=== PATIENT | female | born 1935 | race Caucasian/White ===

== ENCOUNTER → 2016-07-10 | Outpatient (CLI) | payer MEDICARE ==
--- NOTE | 2016-07-11 06:41 | MM ---
Reason for exam: follow-up at short interval from prior study. Last mammogram was performed 7 months ago. History: Patient is postmenopausal, has history of bilateral breast cancer at age 77, has history of other cancer at age 76, and is nulliparous. Family history of premenopausal breast cancer in sister at age 43. Malignant left breast needle localization of both breasts, March 09, 2013. Malignant left mammotome panel of the left breast, February 23, 2013. Benign cyst aspiration of the left breast, 1999. Took estrogen for 10 years beginning at age 54. Took progesterone for 10 years beginning at age 54. Taking other hormone for 16 years. Physical Findings: Nurse Summary: 3 x 4cm post surgical changes per patient at 6 o'clock in the left breast (nurse ts). MG 3D Diag Mammo W/Cad LT CC, MLO, and LM view(s) were taken of the left breast. Prior study comparison: December 18, 2015, bilateral MG 3d diag mammo w/cad TIERRA. December 14, 2014, bilateral MG diagnostic mammo w CAD TIERRA. Finding: There is a 20 mm round mass in the middle, central position of the left breast. Increased new heterogeneous calcifications. These results were verbally communicated with the patient and result sheet given to the patient on 07/10/16. ASSESSMENT: Incomplete: need additional imaging evaluation, BI-RAD 0 RECOMMENDATION: Ultrasound of the left breast.
--- NOTE | 2016-07-11 06:43 | USB ---
Reason for exam: additional evaluation requested from abnormal screening. History: Patient is postmenopausal, has history of bilateral breast cancer at age 77, has history of other cancer at age 76, and is nulliparous. Family history of premenopausal breast cancer in sister at age 43. Malignant left breast needle localization of both breasts, March 09, 2013. Malignant left mammotome panel of the left breast, February 23, 2013. Benign cyst aspiration of the left breast, 1999. Took estrogen for 10 years beginning at age 54. Took progesterone for 10 years beginning at age 54. Taking other hormone for 16 years. US Breast Limited LT Left breast ultrasound demonstrates a 3.2 x 2.9 x 2.1cm oval, mixed, vascular lesion at 3 o'clock, a 0.4 x 0.3 x 0.2cm calcification at 3 o'clock and a 1.1 x 1.1 x 0.5cm irregular, solid, hypoechoic, vascular lesion at the axilla, questionable abnormal lymph node. These results were verbally communicated with the patient and result sheet given to the patient on 07/11/16. ASSESSMENT: Suspicious, BI-RAD 4 RECOMMENDATION: Ultrasound core biopsy of the left breast. (2 sites) Called Dr. Gasca with mammographic findings and has scheduled an appointment for the patient for 07/19/16 at 11:[address] Bernal. PRELIMINARY REPORT CALLED AND FAXED TO DR. BERNAL ON 07/11/16 AT 700/TP.
== END | disposition home or self-care (01) ==
LOC: RADMAMWWP 14:08
PROVIDERS: ATTEND Radiology Diagnostic Radiology
DX: R92.8 Other abnormal and inconclusive findings on diagnostic imaging of breast (principal); Z85.3 Personal history of malignant neoplasm of breast
CPT/HCPCS: 76642; G0206; G0279

== ENCOUNTER → 2016-08-12 | Day surgery (SDC) | payer MEDICARE ==
[~2016-08-12] MED LIST: BACITRACIN OINT 1 EACH PACKET TOPICAL ONE; LIDOCAINE 1% INJ 10MG/ML (20 ML MDV) ONE; LIDOCAINE 1%-EPI 1:100,000 20 ML VIAL ONE; SODIUM BICARB 4% 5 ML VIAL (0.48 MEQ/ML) ONE
--- NOTE | 2016-08-12 14:08 | USB ---
EXAMINATION TYPE: US breast aspiration single LT DATE OF EXAM: 08/12/2016 1:32 PM COMPARISON: Previous study dated 07/10/2016. CLINICAL HISTORY: N63,LUMP LEFT BREAST. Using ultrasound guidance and 1% buffered Xylocaine without epinephrine for local anesthesia an 18-gauge needle was introduced 3.4 cm complex lesion in the 3:00 position of the left breast. Cloudy fluid was aspirated. The lesion disappeared. Estimated blood loss was less than 1 cc. Pathology is pending. A clip was deposited. IMPRESSION: SUCCESSFUL ASPIRATION OF THE LARGE LESION IN THE 3:00 POSITION OF THE LEFT BREAST. Pathology Results: Benign BREAST, LEFT, SITE A 3:00, ASPIRATE: DEGENERATED CELLULAR MATERIAL, MACROPHAGES AND INFLAMMATORY CELLS CONSISTENT WITH CYST CONTENTS. BREAST, LEFT AXILLARY TAIL SITE B, CORE BIOPSY: SCAR/FIBROSIS WITH FAT NECROSIS , CHRONIC INFLAMMATION, PROMINENT HISTIOCYTES AND RARE CALCIFICATIONS. FEATURES SUGGESTIVE OF PREVIOUS PROCEDURAL AND/OR TREATMENT RELATED CHANGES. NO MALIGNANCY IDENTIFIED. SEE NOTE. Recommendation Follow up mammogram and ultrasound of the left breast in 6 months. MTDD
--- NOTE | 2016-08-12 14:11 | USB ---
EXAMINATION TYPE: US breast needle core LT DATE OF EXAM: 08/12/2016 1:32 PM COMPARISON: Previous study dated 07/10/2016. CLINICAL HISTORY: N63 Lump Mass Left Breast. Using standard sterile technique and 1% Xylocaine with and without epinephrine for local anesthesia an 18-gauge Bard needle 5 cores were obtained through a 1.4 cm lesion in the axillary tail of the left breast. Estimated blood loss was less than 3 cc. Pathology is pending. A clip was deposited. IMPRESSION: SUCCESSFUL ULTRASOUND-GUIDED BIOPSY OF THE LEFT AXILLARY TAIL. Pathology Results: Benign BREAST, LEFT, SITE A 3:00, ASPIRATE: DEGENERATED CELLULAR MATERIAL, MACROPHAGES AND INFLAMMATORY CELLS CONSISTENT WITH CYST CONTENTS. BREAST, LEFT AXILLARY TAIL SITE B, CORE BIOPSY: SCAR/FIBROSIS WITH FAT NECROSIS , CHRONIC INFLAMMATION, PROMINENT HISTIOCYTES AND RARE CALCIFICATIONS. FEATURES SUGGESTIVE OF PREVIOUS PROCEDURAL AND/OR TREATMENT RELATED CHANGES. NO MALIGNANCY IDENTIFIED. SEE NOTE. Recommendation Follow up mammogram and ultrasound of the left breast in 6 months. JOAN
== END ==
LOC: RADUSWWP 11:42
PROVIDERS: ATTEND Surgery
DX: N60.32 Fibrosclerosis of left breast (principal); N64.1 Fat necrosis of breast; N63 Unspecified lump in breast
CPT/HCPCS: 88305; 88173; 88342; 76942; 19000; 19083; A4648; J2001

== ENCOUNTER → 2016-12-18 | Outpatient (CLI) | payer MEDICARE ==
--- NOTE | 2016-12-18 16:03 | USB ---
EXAMINATION TYPE: US breast limited LT DATE OF EXAM: 12/18/2016 COMPARISON: Ultrasound of the left breast dated 07/10/2016 and ultrasound-guided biopsy dated 7. CLINICAL HISTORY: N63 PALPABLE MASS. Near the 2:00 position within the left breast there is a 0.8 x 0.4 x 0.7 cm hypoechoic mass containin g a biopsy marker corresponding to the palpable abnormality and previously biopsied "scar/fibrosis wi th fat necrosis, chronic inflammation, prominent histiocytes and rare calcifications. Features sugges tive of previous procedural and/or treatment related changes". No suspicious sonographic abnormality is seen. IMPRESSION: Benign finding. Palpable abnormality corresponding to the previously biopsied site of fa t necrosis. Clinical management is recommended as is annual screening mammography.
--- NOTE | 2016-12-19 13:10 | MM ---
Reason for exam: additional evaluation requested from prior study. Last mammogram was performed 5 months ago. History: Patient is postmenopausal, has history of bilateral breast cancer at age 77, has history of other cancer at age 76, and is nulliparous. Family history of premenopausal breast cancer in sister at age 43. Benign US breast aspiration single LT of the left breast, August 12, 2016. Benign US breast needle core LT of the left breast, August 12, 2016. Malignant left breast needle localization of both breasts, March 09, 2013. Malignant left mammotome panel of the left breast, February 23, 2013. Benign cyst aspiration of the left breast, 1999. Took estrogen for 10 years beginning at age 54. Took progesterone for 10 years beginning at age 54. Taking other hormone for 16 years. Physical Findings: Nurse Summary: A 0.5cm nodule in the left breast at 2 o'clock (nurse dw). MG 3D Diag Mammo W/Cad TIERRA Spot compression MLO view(s) were taken of the left breast. Prior study comparison: July 10, 2016, left breast MG 3d diag mammo w/cad LT. There are scattered fibroglandular densities. Left breast post therapy change. These results were verbally communicated with the patient and result sheet given to the patient on 12/18/16. ASSESSMENT: Incomplete: need additional imaging evaluation, BI-RAD 0 RECOMMENDATION: Ultrasound of the left breast. (Palpable).
== END | disposition home or self-care (01) ==
LOC: RADMAMWWP 14:18
PROVIDERS: ATTEND Radiology Diagnostic Radiology
DX: N63 Unspecified lump in breast (principal); R92.2 Inconclusive mammogram
CPT/HCPCS: 76642; G0204; G0279

== ENCOUNTER 2017-08-26 13:03 | Day surgery (SDC) | payer MEDICARE ==
[2017-08-18 10:18] VITALS: BMI 31.2
[~2017-08-26 13:03] MED LIST changes: -BACITRACIN OINT 1 EACH PACKET TOPICAL ONE; +LACTATED RINGERS 1,000 ML IV SCH; -LIDOCAINE 1% INJ 10MG/ML (20 ML MDV) ONE; -LIDOCAINE 1%-EPI 1:100,000 20 ML VIAL ONE; +MORPHINE SULFATE 4MG/4ML SYRG IV PRN; +ONDANSETRON 4 MG/2 ML VIAL IVP ONE; +Pre Op ABX Message 1 EACH MISC MISCELLANE ONE; -SODIUM BICARB 4% 5 ML VIAL (0.48 MEQ/ML) ONE
[2017-08-26] MEDS ORDERED: LIDOCAINE 1% 20 ML VIAL (10MG/ML) FOR IV START INTRADERMA ONE (13:07)
[2017-08-26] MEDS ORDERED: LACTATED RINGERS 1,000 ML IV ONE (13:07)
[2017-08-26] MEDS ORDERED: HEPARIN SODIUM,PORCINE 5,000 UNIT/ML 1 ML VIAL SQ ONE ×2 (13:31→13:52)
[2017-08-26] MEDS ORDERED: fentaNYL (PF) 50 MCG/ML 2 ML AMP ONE (13:56)
[2017-08-26] MEDS ORDERED: SUCCINYLCHOLINE CHLORIDE 100 MG/5 ML SYR IV ONE (13:56)
[2017-08-26] MEDS ORDERED: PROPOFOL 10 MG/ML 20 ML VIAL IV ONE (13:56)
[2017-08-26] MEDS ORDERED: LIDOCAINE 1% INJ 10MG/ML (20 ML MDV) ONE (13:56)
[2017-08-26] MEDS ORDERED: GLYCOPYRROLATE 0.2 MG/ML 2 ML VIAL ONE (13:56)
[2017-08-26] MEDS ORDERED: BACITRACIN 500 UNIT/GM OINT 28.4 GM TUBE TOPICAL ONE (14:52)
--- NOTE | 2017-08-26 14:55 | P.OP ---
Date of Procedure: 08/26/17 Preoperative Diagnosis: skin lesion times 2: right cheek, right nose, lipoma right back Postoperative Diagnosis: same Procedure(s) Performed: Excision skin lesions right nose, right cheek, recurrent lipoma right back Anesthesia: SHANTELLE Surgeon: Krystyna Ellis Estimated Blood Loss (ml): 5 IV fluids (ml): 400 Pathology: other (skin lesions, back lipoma) Condition: stable Disposition: PACU Indications for Procedure: Changing skin lesions right face, enlarging soft tissue mass right back Operative Findings: skin lesion times 2 right face, soft tissue mass right back Description of Procedure: The patient is an 81-year-old white female who presented to the office in the skin Was performed. The patient was noted to have skin lesions of concern on the right nose in the right cheek. Additionally she had a recurrent lipoma on her right back. Patient was taken to the operating room and following induction of anesthesia the right nose and cheek were prepped and draped in a sterile fashion. excision of the lesion on the nose and the cheek were performed. The lesion on the nose was approximately 8 mm insert the skin and subcutaneous tissue. Hemostasis was attained using the electric device. The skin was closed using a 5-0 nylon. Following this the right cheek was approached. The lesion was approximately 2 cm and saw eyes. Excision was through the skin and into subcutaneous tissues. Deep sutures were placed with a 5-0 Vicryl. The skin was closed with 5 Nylon. The patient tolerated this portion of the procedure in stable condition. The area of the back was approached. The area was prepped and drapped in stable condition. An incision was made over the palpable abnormality in the right back. This was carried through skin and subcutaneous tissue to the deep subcutaneous tissues. Lipoma was approximately 7 cm this was identified and removed. It extended onto the muscle . Following wide excision after we were assured that hemostasis was attained the deep tissues were closed using a 3-0 Vicryl suture. The skin was closed with a 4-0 nylon running suture. Patient tolerated procedure in stable condition. All instrument and sponge counts were correct at the end of the case.
[2017-08-26 15:07] VITALS: TEMP 97
[2017-08-26 15:18] VITALS: RESP 16
--- NOTE | 2017-08-26 15:46 | P.DS ---
Providers Attending physician: Krystyna Ellis Primary care physician: Alex Alberto Plan - Discharge Summary New Discharge Prescriptions: No Action Vitamin E 1,000 mg PO DAILY Multivitamins, Thera [Multivitamin] 1 tab PO DAILY Metoprolol Tartrate [Lopressor] 50 mg PO HS Levothyroxine Sodium [Synthroid] 25 mcg PO DAILY Lansoprazole 30 mg PO BID Cod Liver Oil 1 tab PO DAILY Cholecalciferol [Vitamin D3] 2,000 unit PO DAILY Anastrozole [Anastrozole] 1 mg PO DAILY Sertraline [Zoloft] 50 mg PO HS Ranitidine HCl [Zantac] 150 mg PO DAILY LORazepam [Ativan] 0.5 mg PO TID rOPINIRole HCL [Requip] 0.5 mg PO HS Lisinopril [Zestril] 20 mg PO HS Atorvastatin [Lipitor] 20 mg PO HS Magnesium 200 mg PO DAILY Calcium Carbonate/Vitamin D3 [Calcium 600-Vit D3 200 Tablet] 2 each PO DAILY Discharge Medication List Anastrozole [Anastrozole] 1 mg PO DAILY 01/11/15 [History] Cholecalciferol [Vitamin D3] 2,000 unit PO DAILY 01/11/15 [History] Cod Liver Oil 1 tab PO DAILY 01/11/15 [History] Lansoprazole 30 mg PO BID 01/11/15 [History] Levothyroxine Sodium [Synthroid] 25 mcg PO DAILY 01/11/15 [History] Metoprolol Tartrate [Lopressor] 50 mg PO HS 01/11/15 [History] Multivitamins, Thera [Multivitamin] 1 tab PO DAILY 01/11/15 [History] Vitamin E 1,000 mg PO DAILY 01/11/15 [History] Atorvastatin [Lipitor] 20 mg PO HS 08/18/17 [History] Calcium Carbonate/Vitamin D3 [Calcium 600-Vit D3 200 Tablet] 2 each PO DAILY 07/06 [History] LORazepam [Ativan] 0.5 mg PO TID 08/18/17 [History] Lisinopril [Zestril] 20 mg PO HS 08/18/17 [History] Magnesium 200 mg PO DAILY 08/18/17 [History] Ranitidine HCl [Zantac] 150 mg PO DAILY 08/18/17 [History] Sertraline [Zoloft] 50 mg PO HS 08/18/17 [History] rOPINIRole HCL [Requip] 0.5 mg PO HS 08/18/17 [History] Follow up Appointment(s)/Referral(s): Krystyna Ellis MD [STAFF PHYSICIAN] - 1 Week Patient Instructions/Handouts: *Surgery [facility] - (Anesthesia) Discharge Instructions Outpatient Surgery Activity/Diet/Wound Care/Special Instructions: Patient may shower after [address] Discharge Disposition: HOME SELF-CARE
[2017-08-26 16:25] VITALS: BP 159/84; PULSE 68
--- NOTE | 2017-09-01 11:50 | CDI ---
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 Please respond to the clarification below the line at the bottom and electronically sign. The [facility] Coding staff will review the response and follow-up if needed. Please note: Queries are made part of the Legal Health Record. If you have any questions, please contact the Consulting Solution Director. Dear Dr. Anne Ellis What is the size of the cheek lesion repair/closure? Thank you for your kind consideration. Lesion size about 8 mm by 4 mm. Size of excision about 1.3 by 1.1 cm. MTDD
--- NOTE | 2017-09-03 11:10 | P.PN ---
Progress Note - Text This is in response to the physician query of 09/01/17 on the cheek lesion removed on 08/26/17. The size of excision was 1.3 x 1.1 cm. The size of the original lesion was approximately 0.8 x 0.4 cm in size. The excision was through the skin and subcutaneous tissue.
== END 2017-08-26 16:40 | disposition home or self-care (01) ==
LOC: OR 13:03
PROVIDERS: ATTEND Surgery
DX: C44.329 Squamous cell carcinoma of skin of other parts of face (principal); D04.39 Carcinoma in situ of skin of other parts of face; L57.0 Actinic keratosis; L57.8 Other skin changes due to chronic exposure to nonionizing radiation; D17.1 Benign lipomatous neoplasm of skin and subcutaneous tissue of trunk; R00.1 Bradycardia, unspecified; I10 Essential (primary) hypertension; F41.1 Generalized anxiety disorder; F32.9 Major depressive disorder, single episode, unspecified; M19.90 Unspecified osteoarthritis, unspecified site; E03.9 Hypothyroidism, unspecified; E78.00 Pure hypercholesterolemia, unspecified; G25.81 Restless legs syndrome; K21.9 Gastro-esophageal reflux disease without esophagitis; K44.9 Diaphragmatic hernia without obstruction or gangrene; K90.0 Celiac disease; E66.9 Obesity, unspecified; Z68.31 Body mass index [BMI] 31.0-31.9, adult; Z85.51 Personal history of malignant neoplasm of bladder; Z85.3 Personal history of malignant neoplasm of breast; Z80.3 Family history of malignant neoplasm of breast; Z80.0 Family history of malignant neoplasm of digestive organs; Z80.8 Family history of malignant neoplasm of other organs or systems; Z79.890 Hormone replacement therapy; Z79.899 Other long term (current) drug therapy; Z88.5 Allergy status to narcotic agent; Z88.0 Allergy status to penicillin; Z88.8 Allergy status to other drugs, medicaments and biological substances; Z88.2 Allergy status to sulfonamides; Z91.030 Bee allergy status; Z91.018 Allergy to other foods
CPT/HCPCS: 11641; 11642; 12051; 21933; 93005; 88304; 88305; J1644; J2405; J2001; J3010; J0330; J2704

== ENCOUNTER → 2017-12-22 | Outpatient (CLI) | payer MEDICARE ==
--- NOTE | 2017-12-23 08:36 | MM ---
Reason for exam: additional evaluation requested from prior study. Last mammogram was performed 1 year ago. History: Patient is postmenopausal, has history of bilateral breast cancer at age 77, has history of other cancer at age 76, and is nulliparous. Family history of premenopausal breast cancer in sister at age 43. Benign US breast aspiration single LT of the left breast, August 12, 2016. Benign US breast needle core LT of the left breast, August 12, 2016. Malignant left breast needle localization of both breasts, March 09, 2013. Malignant left mammotome panel of the left breast, February 23, 2013. Benign cyst aspiration of the left breast, 1999. Took estrogen for 10 years beginning at age 54. Took progesterone for 10 years beginning at age 54. Taking other hormone for 16 years. Physical Findings: Nurse Summary: 1cm nodule in the left breast at 11 o'clock (nurse mj). MG 3D Diag Mammo W/Cad TIERRA Bilateral CC and MLO view(s) were taken. XCCL view(s) were taken of the right breast. Prior study comparison: December 18, 2016, bilateral MG 3d diag mammo w/cad TIERRA. July 10, 2016, left breast MG 3d diag mammo w/cad LT. December 18, 2015, bilateral MG 3d diag mammo w/cad TIERRA. December 14, 2014, bilateral MG diagnostic mammo w CAD TIERRA. There are scattered fibroglandular densities. Previous mammotome biopsy in the left axilla. Progressive dystrophic calcifications at the patient's lumpectomy site. Upper inner quadrant palpable marker with underlying focal asymmetry with course calcifications. The asymmetry is increased through. The calcifications were there previously. These results were verbally communicated with the patient and result sheet given to the patient on 12/22/17. ASSESSMENT: Incomplete: need additional imaging evaluation, BI-RAD 0 RECOMMENDATION: Ultrasound of the left breast. (superior half to assess palpable and axillary biopsy site)
--- NOTE | 2017-12-23 08:39 | USB ---
Reason for exam: additional evaluation requested from abnormal screening. History: Patient is postmenopausal, has history of bilateral breast cancer at age 77, has history of other cancer at age 76, and is nulliparous. Family history of premenopausal breast cancer in sister at age 43. Benign US breast aspiration single LT of the left breast, August 12, 2016. Benign US breast needle core LT of the left breast, August 12, 2016. Malignant left breast needle localization of both breasts, March 09, 2013. Malignant left mammotome panel of the left breast, February 23, 2013. Benign cyst aspiration of the left breast, 1999. Took estrogen for 10 years beginning at age 54. Took progesterone for 10 years beginning at age 54. Taking other hormone for 16 years. US Breast Limited LT Left limited breast ultrasound including focal area of concern, retroareolar and axilla demonstrates a 1.1 x 0.8 x 1.1cm hypoechoic, vascular lesion at 11 o'clock for which a biopsy is recommended, may be similar process as the biopsied 2 o'clock site and a 1.4 x 0.5 x 1.4cm hypoechoic, vascular lesion at 2 o'clock, versus 8 x 4 x 7mm post biopsy. These results were verbally communicated with the patient and result sheet given to the patient on 12/22/17. ASSESSMENT: Suspicious, BI-RAD 4 RECOMMENDATION: Ultrasound core biopsy of the left breast. (11 o'clock) Called Dr. Gasca with mammographic findings and has scheduled an appointment for the patient for 01/08/18 at 11:[address] Bernal. PRELIMINARY REPORT CALLED AND FAXED TO DR. BERNAL ON 12/23/17.
== END | disposition home or self-care (01) ==
LOC: RADMAMWWP 14:31
PROVIDERS: ATTEND Radiology Diagnostic Radiology
DX: Z08 Encounter for follow-up examination after completed treatment for malignant neoplasm (principal); Z85.3 Personal history of malignant neoplasm of breast
CPT/HCPCS: 77066; 76642; G0279; 77062

== ENCOUNTER → 2018-01-08 | Outpatient (CLI) | payer MEDICARE ==
[2018-01-08 12:15] VITALS: BP 112/60; PULSE 55; RESP 14; TEMP 98.1; BMI 33.2
--- NOTE | 2018-01-08 12:27 | P.GSHP ---
History of Present Illness H&P Date: 01/08/18 Patient is status post left breast lumpectomy and radiation of the left breast. She had a core biopsy of the left breast done 08-12-2016 which was benign. She at this time is complaining of increased nodularity in her left breast. The lump has been present for several months. Patient had a bilateral mammogram 12/22/17. This revealed fibroglandular densities. Previous mammotome biopsy in the left axilla. Progressive dystrophic calcifications at patient's lumpectomy site. Upper inner quadrant palpable marker with underlying focal asymmetry with coarse calcifications. The asymmetry is increased. The calcifications were there previously. An ultrasound was performed of the left breast with attention to the superior half to assess the palpable area. The area area on ultrasound revealed a 1.1 hypoechoic vascular lesion at 11:00 for which biopsy was recommended. Several other areas were noted that biopsy of these areas was not recommended. The patient has no nipple discharge or changes. The patient had no chemotherapy and no hormonal therapy. Patient has had bladder, skin, and breast cancer. Family history: 1. Sister:breast cancer 2. Father: cancer uncertain of the type 3. Brother multiple myeloma 4. Nice: breast cancer bilateral, reconstruction not worked for her 5. Nephew: larynx cancer at 50, Hormonal history: Menarche: 14 Pregnancies: None Menopause: 60 Hormones: Premarin and Provera approximately 10 years possibly longer control pills:none Past surgical history: 1. Bladder cancer 2. breast cancer,lumpectomy 3. Biopsy of small intestine to diagnose celiac disease Past medical history: 1. Hypertension 2. Depression 3. High cholesterol 4. Reflux 5. obesity Social history: Smoking: Negative Alcohol: Occasional Drugs: Negative Review of systems: HEENT: Negative Lungs: Negative Heart: Hypertension, palpitations at times GI: Reflux, celiac disease :bladder cancer Musculoskeletal: Arthritis Neurologic: Negative ALLERGIES: Seasonal Bleeding abnormalities: Negative - Constitutional Constitutional: Denies chills, Denies fever - EENT Eyes: denies blurred vision, denies pain Ears: deny: decreased hearing, tinnitus - Breasts Breasts: bilateral: as per HPI - Cardiovascular Cardiovascular: Reports high blood pressure - Respiratory Respiratory: Reports as per HPI - Gastrointestinal Comment: celiac Gastrointestinal: Reports as per HPI - Genitourinary (Female) Comment: bladder cancer Genitourinary: Reports as per HPI - Menstruation Menstruation: Reports postmenopausal - Musculoskeletal 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 - Integumentary Integumentary: Denies pruritus, Denies rash - Neurological Comment: Peripheral sensory polyneuritis - Psychiatric Psychiatric: Reports anxiety, Denies depression - Endocrine Endocrine: Reports weight change, Denies fatigue - Hematologic/Lymphatic Comment: none - Allergic/Immunologic Allergic/Immunologic: Reports seasonal allergies Past Medical History Past Medical History: Cancer, GERD/Reflux, Hyperlipidemia, Hypertension, Thyroid Disorder Additional Past Medical History / Comment(s): HX BREAST CA, BLADDER CA, LEFT LEG BASAL CELL, CELIAC DX, restless leg syndrome History of Any Multi-Drug Resistant Organisms: None Reported Past Surgical History: Adenoidectomy, Bladder Surgery, Breast Surgery, Tonsillectomy, Tubal Ligation Additional Past Surgical History / Comment(s): COLONOSCOPIES, BENIGN LUMP REMOVED FROM BACK, LEFT BREAST LUMPECTOMY, 2 SX FOR BLADDER CA, LEFT LEG BASAL CELL CA REMOVED, blepharoplasty Past Anesthesia/Blood Transfusion Reactions: Postoperative Nausea & Vomiting ( PONV) Smoking Status: Never smoker - Past Family History Father Family Medical History: Cancer Brother(s) Family Medical History: Cancer Sister(s) Family Medical History: Cancer Additional Family Medical History / Comment(s): BREAST Medications and Allergies Home Medications Medication Instructions Recorded Confirmed Type Anastrozole 1 mg PO DAILY 01/11/15 08/18/17 History Cholecalciferol [Vitamin D3] 2,000 unit PO DAILY 01/11/15 08/18/17 History Cod Liver Oil 1 tab PO DAILY 01/11/15 08/18/17 History Lansoprazole 30 mg PO BID 01/11/15 08/18/17 History Levothyroxine Sodium [Synthroid] 25 mcg PO DAILY 01/11/15 08/18/17 History Metoprolol Tartrate [Lopressor] 50 mg PO HS 01/11/15 08/18/17 History Multivitamins, Thera [Multivitamin] 1 tab PO DAILY 01/11/15 08/18/17 History Vitamin E 1,000 mg PO DAILY 01/11/15 08/18/17 History Atorvastatin [Lipitor] 20 mg PO HS 08/18/17 08/18/17 History Calcium Carbonate/Vitamin D3 2 each PO DAILY 08/18/17 08/18/17 History [Calcium 600-Vit D3 200 Tablet] LORazepam [Ativan] 0.5 mg PO TID 08/18/17 08/18/17 History Lisinopril [Zestril] 20 mg PO HS 08/18/17 08/18/17 History Magnesium 200 mg PO DAILY 08/18/17 08/18/17 History Ranitidine HCl [Zantac] 150 mg PO DAILY 08/18/17 08/18/17 History Sertraline [Zoloft] 50 mg PO HS 08/18/17 08/18/17 History rOPINIRole HCL [Requip] 0.5 mg PO HS 08/18/17 08/18/17 History Allergies Allergy/AdvReac Type Severity Reaction Status Date / Time bee pollen Allergy Rash/Hives Verified 01/08/18 12:11 gluten Allergy Nausea & Verified 01/08/18 12:11 Vomiting & Diarrhea Penicillins Allergy Rash/Hives Verified 01/08/18 12:11 Sulfa (Sulfonamide Allergy Rash/Hives Verified 01/08/18 12:11 Antibiotics) Surgical - Exam - General obese - Eyes normal ocular movement, no icteric - ENT no hearing loss, no congestion - Neck no masses, trachea midline - Respiratory normal respiratory effort, clear to auscultation - Cardiovascular Rhythm: regular Heart Sounds: normal: S1, S2 - Abdomen Abdomen: soft, non tender, no guarding, no rigid, no rebound - Neurologic no disoriented, no combative - Musculoskeletal normal gait, normal posture - Psychiatric oriented to time, oriented to person, oriented to place, speech is normal, memory intact Breast examination: Right breast: Multiple positional exam no dominant masses or nodules of concern Right axilla: No adenopathy of concern Left breast: Changes related to radiation and surgery, at the 11 o'clock position remote from the area of the lumpectomy is an area of increased nodularity Left axilla: No adenopathy of concern Assessment and Plan Assessment: Impression: 1. Radiographic abnormality a site of palpable abnormality 11:00 left breast 2. Prior history of left breast cancer 3. GERD/reflux 4. High cholesterol 5. Hypertension 6. Anxiety/depression 7. Prior history of bladder cancer 8. Prior history of skin cancer Plan: 1. Ultrasound core biopsy of area of concern left breast 2. Medical management of medical problems 3. Follow-up Dr. Eduardo 1 week after ultrasound core biopsy Risks and benefits of the procedure were discussed with the patient. She wishes to proceed. CC: DR. Kim Alberto
== END ==
LOC: WWCWWP 11:26
PROVIDERS: ATTEND Surgery
DX: Z53.9 Procedure and treatment not carried out, unspecified reason (principal)

== ENCOUNTER → 2018-01-14 | Day surgery (SDC) | payer MEDICARE ==
[2018-01-14 13:37] VITALS: BP 113/50; PULSE 57; RESP 18; TEMP 97.9; BMI 28.3
--- NOTE | 2018-01-14 15:03 | USB ---
EXAMINATION TYPE: US discontinued breast bx LT DATE OF EXAM: 01/14/2018 COMPARISON: 12/22/2017 HISTORY: History of cancer, abnormal ultrasound suspicious findings TECHNIQUE: Real-time linear array sonography FINDINGS: In the upper outer quadrant of the left breast is a hypoechoic area with posterior shadowin g. This contains a large caliber vascular structure. In consultation with the referring surgeon, the danger for significant hemorrhaging following biopsy was assessed. This patient would likely benefit consideration for open biopsy with wire localization. IMPRESSION: 1. Procedure terminated prior to skin incision. 2. Lesion remains suspicious, BI-RADS 4. Recommendations: 1. Patient will be referred for surgical consultation. Appointment was made for 01/15/2018 for the pat ient.
== END ==
LOC: RADUSWWP 13:06
PROVIDERS: ATTEND Surgery
DX: N64.89 Other specified disorders of breast (principal); Z85.3 Personal history of malignant neoplasm of breast; Z53.09 Procedure and treatment not carried out because of other contraindication

== ENCOUNTER → 2018-01-15 | Outpatient (CLI) | payer MEDICARE ==
[2018-01-15 09:03] VITALS: BP 97/64; PULSE 53; BMI 33.2
--- NOTE | 2018-01-15 09:08 | P.PN ---
Subjective Progress Note Date: 01/15/18 The patient is a 82-year-old white female status post left breast lumpectomy and radiation of the left breast. She had a core biopsy of the left breast on 08/12/2016 which was benign. She presented on 01/08/2018 with a history of a mammogram performed on 868T. This revealed fibroglandular densities. The patient had progressive dystrophic calcifications at her lumpectomy site. The upper inner quadrant there was focal asymmetry with coarse calcifications. The left breast underwent an ultrasound which revealed a 1.1 cm hypoechoic vascular lesion at 11:00 for which biopsy was recommended. An attempt at biopsy of this lesion was made by radiology who noted that it was very vascular and felt it would be best to have this done with needle localization and excision in the operating room. The patient has no nipple discharge or changes. The patient had no chemotherapy and no hormonal therapy. The patient has had bladder, skin , and breast cancer. Family history: 1. Sr.: Breast cancer 2. Father colon cancer uncertain of the type 3. Brother: Multiple myeloma 4. Nice: Breast cancer bilateral 5. Nephew: Laryngeal cancer Hormonal history: Menarche: 14 Pregnancies: None Menopause: 60 Hormones: Premarin and Provera approximately 10 years control pills: Negative Past surgical history: 1. Bladder cancer 2. Breast cancer lumpectomy left breast 3. Biopsy of small intestine to diagnose celiac disease The past medical history: 1. Hypertension 2. Depression 3. High cholesterol 4. Reflux 5. Obesity Social history: Smoking: Negative Alcohol: Occasional Drugs: Negative Review of systems: HEENT: Negative Heart: Hypertension Lungs: Negative GI: Celiac disease : Bladder cancer Integument: Denies pruritus denies rash Neurologic: Peripheral sensory polyneuritis Psychiatric: Depression Objective - Constitutional Constitutional Comment(s): Breast examination: Right breast: Multi-positional exam no dominant masses or nodules of concern Right axilla: No adenopathy of concern Left breast: Changes related to radiation and surgery at the 11 o'clock position remote from the ears lumpectomy is an area of increased nodularity Left axilla: No adenopathy of concern General appearance: Present: obese - EENT Eyes: Present: PERRLA Ears: bilateral: normal - Neck Neck: Present: normal ROM - Respiratory Respiratory: bilateral: CTA - Cardiovascular Rhythm: regular Heart sounds: normal: S1, S2 - Gastrointestinal General gastrointestinal: Present: normal bowel sounds, soft - Musculoskeletal Musculoskeletal: Present: gait normal - Psychiatric Psychiatric: Present: A&O x's 3, appropriate affect, intact judgment & insight Assessment and Plan Plan: Impression/plan: 1. Radiographic abnormality of site of palpable abnormality left breast, vascular lesion radiology recommends needle local excisional biopsy 2. Prior history of left breast cancer 3. GERD/reflux 4. High cholesterol 5. Hypertension 6. Anxiety/depression 7. Prior history of bladder cancer History of skin cancer Plan: 1. Failed ultrasound attempted core biopsy of left breast lesion therefore needle localization and excisional biopsy 2. Medical management of medical problems 3. Will obtain medical clearance with Dr. Kim Alberto prior to surgical excision Risks and benefits of needle localization excisional biopsy were discussed in detail with the patient. These include bleeding infection possible reaction to the anesthetic. The patient understands and wishes to proceed. Cc: Dr. Alberto
== END | disposition home or self-care (01) ==
LOC: WWCWWP 08:50
PROVIDERS: ATTEND Surgery
DX: Z53.9 Procedure and treatment not carried out, unspecified reason (principal)

== ENCOUNTER 2018-01-27 09:15 | Day surgery (SDC) | payer MEDICARE ==
[2018-01-21 12:09] VITALS: BMI 33.2
[~2018-01-27 09:15] MED LIST changes: -MORPHINE SULFATE 4MG/4ML SYRG IV PRN; -ONDANSETRON 4 MG/2 ML VIAL IVP ONE
[2018-01-27] MEDS ORDERED: LACTATED RINGERS 1,000 ML IV ONE ×2 (10:04)
[2018-01-27] MEDS ORDERED: LIDOCAINE 1% 20 ML VIAL (10MG/ML) FOR IV START INTRADERMA ONE (10:04)
[2018-01-27] MEDS: HEPARIN SODIUM,PORCINE 5,000 UNIT/ML 1 ML VIAL SQ ONE ×2 (10:12→12:00)
[2018-01-27] MEDS ORDERED: LIDOCAINE 1% INJ 10MG/ML (20 ML MDV) SQ ONE ×4 (10:52→13:30)
[2018-01-27] MEDS ORDERED: SODIUM BICARB 4% 5 ML VIAL (0.48 MEQ/ML) MISCELLANE ONE (10:52)
[2018-01-27] MEDS ORDERED: HEPARIN SODIUM,PORCINE 5,000 UNIT/ML 1 ML VIAL SQ ONE (12:11)
[2018-01-27] MEDS ORDERED: fentaNYL (PF) 50 MCG/ML 2 ML AMP ONE (12:27)
[2018-01-27] MEDS ORDERED: MIDAZOLAM 2 MG/2 ML VIAL ONE (12:27)
[2018-01-27] MEDS ORDERED: ePHEDrine SULFATE/0.9% NACL/PF 50 MG/5 ML SYRINGE IV ONE (12:27)
[2018-01-27] MEDS ORDERED: LIDOCAINE 1% INJ 10MG/ML (20 ML MDV) ONE (12:27)
[2018-01-27] MEDS ORDERED: PROPOFOL 10 MG/ML 20 ML VIAL IV ONE (12:27)
[2018-01-27] MEDS ORDERED: GLYCOPYRROLATE 0.2 MG/ML 2 ML VIAL ONE (12:27)
--- NOTE | 2018-01-27 13:30 | USB ---
ULTRASOUND GUIDED LEFT BREAST NEEDLE LOCALIZATION BIOPSY: CLINICAL HISTORY: 11:00 left breast nodule FINDINGS: The procedure was explained to the patient. The risks, complications, benefits and alternatives were discussed and any questions were answered. Informed consent was obtained. Patient was placed supine on the ultrasound table and prepped and draped in the usual sterile fashion. Utilizing a 5 cm length needle access was obtained through the nodule 11:00 position. The wire was placed. Ultrasound images demonstrated ideal placement wire. Patient was stable throughout the procedure. All elements of maximal barrier and sterile technique were utilized. Surgical specimen demonstrates area of concern to be contained within the specimen IMPRESSION: 1. Successful ultrasound guided left breast needle localization Pathology Results: Benign A. BREAST, LEFT, NEEDLE LOCALIZATION EXCISION: Nodular fat necrosis with associated fibrosis, histiocytes and chronic inflammation. Negative for malignancy. B. BREAST, LEFT, INFERIOR EXTERNAL WALL: Benign breast tissue with prominent fibroadipose tissue. C. BREAST, LEFT, SUPERIOR EXTERNAL WALL: Benign fibroadipose tissue. Recommendation Follow up ultrasound of the left breast in 6 months. JOAN
--- NOTE | 2018-01-27 13:33 | P.OP ---
Date of Procedure: 01/27/18 Preoperative Diagnosis: Mammographic abnormality left breast, attempted ultrasound core biopsy was canceled by radiology secondary to vascularity in the vicinity of the lesion Postoperative Diagnosis: Same Procedure(s) Performed: Needle localization excision of mammographic abnormality left breast, the area was attempted to be biopsied by ultrasound core and the radiologist was concerned about the vascularity and recommended that a needle localization and excision the operating room be performed Anesthesia: SHANTELLE Surgeon: Krystyna Ellis Estimated Blood Loss (ml): 20 IV fluids (ml): 400 Pathology: other (breast tissue) Condition: stable Disposition: PACU Indications for Procedure: Mammographic abnormality left breast, attempted core biopsy aborted via radiology secondary to concern about vascularity in the vicinity of the lesion Operative Findings: Dense firm tissue left breast Description of Procedure: The patient is an 82-year-old white female who is status post prior left breast lumpectomy for an invasive cancer and radiation therapy. She recently was noted to have a second area of concern in the left breast at the 11:00 region. It was recommended that she undergo needle localization and excision in the operating room after no attempted core biopsy was aborted secondary to the radiologist concern about vascularity in the region. The patient was taken to the operating room and the left breast was prepped and draped in a sterile fashion. An incision was made near the shaft of the needle taken and Skin over the area of greatest concern. Wide excision was performed. There was concern the superior and inferior margins may be close and therefore additional tissue was obtained. The tissue was painted to orient the external surface of the superior and inferior margins. After we were assured that hemostasis was attained titanium clips were placed in the bed of the cavity. The inferior tissue was mobilized approximately 4 x 3 cm and closed over the area of the defect. Deep tissues were closed with 3-0 Vicryl suture. The skin was closed with 4-0 Monocryl. The patient tolerated the procedure in stable condition. All instrument and sponge counts were correct at the end of the case. The patient tolerated the procedure in stable condition.
--- NOTE | 2018-01-27 13:35 | P.DS ---
Providers Attending physician: Krystyna Ellis Primary care physician: Stated None Plan - Discharge Summary New Discharge Prescriptions: No Action Vitamin E 1,000 mg PO DAILY Multivitamins, Thera [Multivitamin] 1 tab PO DAILY Metoprolol Tartrate [Lopressor] 25 mg PO HS Levothyroxine Sodium [Synthroid] 25 mcg PO DAILY Lansoprazole 30 mg PO BID Cod Liver Oil 1 tab PO DAILY Cholecalciferol [Vitamin D3] 2,000 unit PO DAILY Anastrozole 1 mg PO DAILY Ranitidine HCl [Zantac] 150 mg PO DAILY rOPINIRole HCL [Requip] 0.5 mg PO HS Lisinopril [Zestril] 20 mg PO HS Atorvastatin [Lipitor] 20 mg PO HS Magnesium 200 mg PO DAILY Calcium Carbonate/Vitamin D3 [Calcium 600-Vit D3 200 Tablet] 2 each PO DAILY Sertraline [Zoloft] 50 mg PO HS LORazepam [Ativan] 0.5 mg PO TID Discharge Medication List Anastrozole 1 mg PO DAILY 01/11/15 [History] Cholecalciferol [Vitamin D3] 2,000 unit PO DAILY 01/11/15 [History] Cod Liver Oil 1 tab PO DAILY 01/11/15 [History] Lansoprazole 30 mg PO BID 01/11/15 [History] Levothyroxine Sodium [Synthroid] 25 mcg PO DAILY 01/11/15 [History] Metoprolol Tartrate [Lopressor] 25 mg PO HS 01/11/15 [History] Multivitamins, Thera [Multivitamin] 1 tab PO DAILY 01/11/15 [History] Vitamin E 1,000 mg PO DAILY 01/11/15 [History] Atorvastatin [Lipitor] 20 mg PO HS 08/18/17 [History] Calcium Carbonate/Vitamin D3 [Calcium 600-Vit D3 200 Tablet] 2 each PO DAILY 07/06 [History] Lisinopril [Zestril] 20 mg PO HS 08/18/17 [History] Magnesium 200 mg PO DAILY 08/18/17 [History] Ranitidine HCl [Zantac] 150 mg PO DAILY 08/18/17 [History] rOPINIRole HCL [Requip] 0.5 mg PO HS 08/18/17 [History] LORazepam [Ativan] 0.5 mg PO TID 01/09/18 [History] Sertraline [Zoloft] 50 mg PO HS 01/09/18 [History] Follow up Appointment(s)/Referral(s): Krystyna Ellis MD [STAFF PHYSICIAN] - 1 Week Activity/Diet/Wound Care/Special Instructions: do not drive today wear bra at all times may shower after 48 hours Discharge Disposition: HOME SELF-CARE
[2018-01-27 13:48] VITALS: TEMP 97
[2018-01-27 13:59] VITALS: RESP 16
--- NOTE | 2018-01-27 14:03 | MM ---
Reason for exam: additional evaluation requested from abnormal screening. Last mammogram was performed 1 month ago. History: Patient is postmenopausal, has history of bilateral breast cancer at age 77, has history of other cancer at age 76, and is nulliparous. Family history of premenopausal breast cancer in sister at age 43. US discontinued breast bx LT of the left breast, January 14, 2018. Benign US breast aspiration single LT of the left breast, August 12, 2016. Benign US breast needle core LT of the left breast, August 12, 2016. Malignant left breast needle localization of both breasts, March 09, 2013. Malignant left mammotome panel of the left breast, February 23, 2013. Benign cyst aspiration of the left breast, 1999. Took estrogen for 10 years beginning at age 54. Took progesterone for 10 years beginning at age 54. Taking other hormone for 16 years. MG Diagnostic Mammo LT Wo CAD CC and LM view(s) were taken of the left breast. Prior study comparison: December 22, 2017, bilateral MG 3d diag mammo w/cad TIERRA. December 18, 2016, bilateral MG 3d diag mammo w/cad TIERRA. ASSESSMENT: Post procedure mammogram for marker placement RECOMMENDATION: Ultrasound of the left breast in 6 months. PENDING PATHOLOGY RESULTS.
[2018-01-27 14:39] VITALS: PULSE 71
[2018-01-27 15:01] VITALS: BP 140/77
--- NOTE | 2018-02-02 11:20 | MM ---
MG Surgical Specimen LT ULTRASOUND GUIDED LEFT BREAST NEEDLE LOCALIZATION BIOPSY: CLINICAL HISTORY: 11:00 left breast nodule FINDINGS: The procedure was explained to the patient. The risks, complications, benefits and alternatives were discussed and any questions were answered. Informed consent was obtained. Patient was placed supine on the ultrasound table and prepped and draped in the usual sterile fashion. Utilizing a 5 cm length needle access was obtained through the nodule 11:00 position. The wire was placed. Ultrasound images demonstrated ideal placement wire. Patient was stable throughout the procedure. All elements of maximal barrier and sterile technique were utilized. Surgical specimen demonstrates area of concern to be contained within the specimen IMPRESSION: 1. Successful ultrasound guided left breast needle localization RECOMMENDATION: Ultrasound of the left breast in 6 months. KENNEDID
== END 2018-01-27 15:41 | disposition home or self-care (01) ==
LOC: OR 09:15
PROVIDERS: ATTEND Surgery
DX: N64.1 Fat necrosis of breast (principal); N60.32 Fibrosclerosis of left breast; Z85.3 Personal history of malignant neoplasm of breast; Z85.51 Personal history of malignant neoplasm of bladder; Z92.3 Personal history of irradiation; I10 Essential (primary) hypertension; F32.9 Major depressive disorder, single episode, unspecified; E78.00 Pure hypercholesterolemia, unspecified; K21.9 Gastro-esophageal reflux disease without esophagitis; E66.9 Obesity, unspecified; Z68.33 Body mass index [BMI] 33.0-33.9, adult; E03.9 Hypothyroidism, unspecified; F41.1 Generalized anxiety disorder; G25.81 Restless legs syndrome; K90.0 Celiac disease; M19.90 Unspecified osteoarthritis, unspecified site; Z79.890 Hormone replacement therapy; Z79.899 Other long term (current) drug therapy; Z88.5 Allergy status to narcotic agent; Z88.0 Allergy status to penicillin; Z88.8 Allergy status to other drugs, medicaments and biological substances; Z88.2 Allergy status to sulfonamides
CPT/HCPCS: 88307; 77065; 76098; 19285; 19125; J2250; J1644; J2001; J3010; J2704

== ENCOUNTER → 2018-02-05 | Outpatient (CLI) | payer MEDICARE ==
[2018-02-05 14:08] VITALS: BP 110/70; PULSE 58; RESP 14; TEMP 97.8; BMI 33.2
--- NOTE | 2018-02-05 14:11 | P.PN ---
Progress Note - Text Progress Note Date: 02/05/18 Patient is status post needle localization and excision of area of concern in the left breast on 01/27/2018. At this time she has no complaints. Pathology reveals nodular fat necrosis with associated fibrosis negative for malignancy. Physical examination: Area of incision has mild erythema no evidence of infection incision clean and dry. Impression: Fat necrosis left breast Status post lumpectomy radiation therapy left breast No evidence of recurrent cancer at this time in the left breast Plan: 1. Repeat left breast mammogram in physician exam in 6 months time 2. Follow-up examination to evaluate area of mild erythema in 2 weeks. 3. Patient has any questions or concerns like to see her sooner CC: Dr. Alberto
== END ==
LOC: WWCWWP 13:50
PROVIDERS: ATTEND Surgery
DX: Z53.9 Procedure and treatment not carried out, unspecified reason (principal)

== ENCOUNTER → 2018-02-23 | Outpatient (CLI) | payer MEDICARE ==
[2018-02-23 13:02] VITALS: BP 128/64; PULSE 73; RESP 12; TEMP 97; BMI 33.2
--- NOTE | 2018-02-23 13:28 | P.PN ---
Progress Note - Text Progress Note Date: 02/23/18 Patient is status post biopsy of the left breast . Pathology revealed fat necrosis with associated fibrosis negative for malignancy. Patient is status post lumpectomy and radiation of the left breast. The patient initially after the recent biopsy had some mild erythema which has resolved. However, over the past several days the patient has noted some serous drainage from the medial aspect of the incision. Physical examination: The medial aspect of the incision there is a proximately 2 mm opening with some minimal serous drainage No evidence of cellulitis or erythema lungs: clear heart: RRR Impression: 1. Status post left breast lumpectomy and radiation therapy 2. Recent biopsy of area of concern in the left breast 3. Serous drainage medial aspect of the incision in the left breast minimal amount Plan: 1. Conservative management of incision 2. Follow-up in 1 month CC: Dr. Alberto
== END | disposition home or self-care (01) ==
LOC: WWCWWP 12:52
PROVIDERS: ATTEND Surgery
DX: Z53.9 Procedure and treatment not carried out, unspecified reason (principal)

== ENCOUNTER → 2018-05-29 | Outpatient (CLI) | payer MEDICARE ==
[2018-05-29 10:40] VITALS: BP 101/69; PULSE 58; RESP 18; TEMP 98; BMI 34.9
--- NOTE | 2018-05-29 11:11 | P.PN ---
Subjective Progress Note Date: 05/29/18 Principal diagnosis: left breast cancer 2010 Heather is an 82-year-old white female who is status post left breast lumpectomy approximately 7 years ago for a malignancy after which she received radiation therapy. In 2018 she was noted to have a radiographic abnormality in the left breast and attempt at ultrasound-guided core biopsy was canceled by radiology secondary to vascularity in the vicinity of the lesion. [place] [address]. Pathology from this was benign. Pathology at at that time revealed fat necrosis and fibrosis. The patient continues to have some drainage from the area of the biopsy. The patient states it is uncomfortable when the area fills with fluid. The patient states that she has noticed some slight drainage at times and other times it is yellow greenish in color. The patient has had no fever or chills. The patient has had no redness of her breast. Family History: 1. father: liver 2. sister: breast bilateral 3. brother: multiple myloma 4. nephew: larynx 5. maternal cousins: brain cancer, pancreatic 6. patient bladder cancer Hormonal History: menarache: 14 : none menopause: 60, took hormones for about 15 years, not taking them now BCP: noen Past Surgical History: 1. left breast mastectomy 2. bladder cancer 3. skin lesions Past Medical History: 1. celiac disease 2. Peripheral sensory polyneuritis following a flu shot for the swine flu Social History: smoke: none alcohol: none drugs: none Objective - Vital Signs Vital signs: Vital Signs Temp 98.0 F 05/29/18 10:32 Pulse 58 L 05/29/18 10:32 Resp 18 05/29/18 10:32 BP 101/69 05/29/18 10:32 Pulse Ox 79 L 05/29/18 10:32 Intake & Output 05/28/18 05/29/18 05/29/18 18:59 06:59 18:59 Weight 81.193 kg - Exam BMI: 35 - Constitutional General appearance: Present: cooperative, obese - EENT Eyes: Present: EOMI ENT: Present: hearing grossly normal - Neck Neck: Present: normal ROM - Respiratory Respiratory: bilateral: CTA - Cardiovascular Rhythm: regular Heart sounds: normal: S1, S2 - Gastrointestinal General gastrointestinal: Present: soft - Integumentary Integumentary: Present: normal turgor - Musculoskeletal Musculoskeletal: Present: left sided weakness - Psychiatric Psychiatric: Present: A&O x's 3, appropriate affect, intact judgment & insight - Additional findings Additional findings: Breast Exam: Examination of the right breast multi-positional exam no dominant masses or nodules of concern Right axilla: No adenopathy of concern Left breast: Postoperative changes from prior lumpectomy and radiation therapy. There is incision which is in the upper inner quadrant of the breast with two small punctate areas which are open, these are in the area of radiated tissue. Left axilla: No adenopathy of concern Aerobic and anaerobic cultures obtained of the left incision site Assessment and Plan Assessment: Impression: 1. Left breast cancer treated with lumpectomy and radiation therapy approximately 8 years ago, patient within the last year has had an open biopsy of an area of concern and has some difficulty with healing of the incision at this time 2. Some recent dizziness which her primary care doctor is aware of 3. Celiac disease 4. Peripheral sensory polyneuritis 5. No evidence of recurrent breast cancer Plan: 1. Cultures were obtained of the area of open incision in the left breast, the patient will most likely require operative reexcision of the area versus incision and drainage with allowing this to heal from the inside out, follow up in two weeks 2. Continue continued follow-up with primary care doctor regarding dizziness 3. Medical management of medical conditions 4. Patient is doing June for right breast mammogram, and bilateral mammogram in December Cc: Dr. Alberto
== END | disposition home or self-care (01) ==
LOC: WWCWWP 10:03
PROVIDERS: ATTEND Surgery
DX: N64.9 Disorder of breast, unspecified (principal)
CPT/HCPCS: 87070; 87075; 87205

== ENCOUNTER → 2018-06-12 | Outpatient (CLI) | payer MEDICARE ==
[2018-06-12 11:03] VITALS: BP 117/73; PULSE 60; RESP 18; TEMP 95.9; BMI 34.5
--- NOTE | 2018-06-12 11:24 | P.PN ---
Subjective Progress Note Date: 06/12/18 Principal diagnosis: Wound check left breast Heather is an 82-year-old white female who is status post left breast biopsy. She initially underwent a left breast lumpectomy and radiation therapy for breast cancer. She subsequently underwent a left breast biopsy in January 2018 and pathology revealed nodular fat necrosis. The patient then developed some drainage of the medial aspect of that incision. She states that the drainage has decreased markedly. She has small and amount of weight drainage every several days at the medial aspect of the incision but this is decreased. The patient has no evidence of infection or redness at the site. Objective - Vital Signs Vital signs: Vital Signs Temp 95.9 F L 06/12/18 10:58 Pulse 60 06/12/18 10:58 Resp 18 06/12/18 10:58 BP 117/73 06/12/18 10:58 Pulse Ox 97 06/12/18 10:58 Intake & Output 06/11/18 06/12/18 06/12/18 18:59 06:59 18:59 Weight 80.286 kg - Constitutional General appearance: Present: obese - EENT Eyes: Present: EOMI ENT: Present: hearing grossly normal - Neck Neck: Present: normal ROM - Respiratory Respiratory: bilateral: CTA - Cardiovascular Rhythm: regular Heart sounds: normal: S1, S2 - Psychiatric Psychiatric: Present: A&O x's 3, appropriate affect - Additional findings Additional findings: Examination of the left breast reveals the incision is clean and dry. The medial aspect there are 2 punctate openings with a bridge of tissue between them. There is minimal drainage from the area of the openings. No evidence of cellulitis or erythema. Assessment and Plan Assessment: Impression 1. Status post left breast lumpectomy and radiation therapy 2. Biopsy left breast in January 2018 revealing fat necrosis, delayed healing medial aspect of the wound 3. Decreased drainage from the area of the incision Plan: Continue conservative management 2. Follow up one month Cc: Dr. Alberto
== END ==
LOC: WWCWWP 10:38
PROVIDERS: ATTEND Surgery
DX: Z53.9 Procedure and treatment not carried out, unspecified reason (principal)

== ENCOUNTER → 2018-07-06 | Outpatient (CLI) | payer MEDICARE | END | disposition home or self-care (01) | LOC: LABWHC1 10:42 | PROVIDERS: ATTEND Family Medicine | DX: Z13.9 Encounter for screening, unspecified (principal) | CPT/HCPCS: 36415; 82565; 84520 ==

== ENCOUNTER → 2018-07-20 | Outpatient (CLI) | payer MEDICARE ==
--- NOTE | 2018-07-21 08:21 | MM ---
Reason for exam: follow-up at short interval from prior study. Last mammogram was performed 6 months ago. History: Patient is postmenopausal, has history of bilateral breast cancer at age 77, has history of other cancer at age 76, and is nulliparous. Family history of premenopausal breast cancer in sister at age 43. Benign US breast localization LT, January 27, 2018. US discontinued breast bx LT of the left breast, January 14, 2018. Benign US breast aspiration single LT of the left breast, August 12, 2016. Benign US breast needle core LT of the left breast, August 12, 2016. Malignant left breast needle localization of both breasts, March 09, 2013. Malignant left mammotome panel of the left breast, February 23, 2013. Benign cyst aspiration of the left breast, 1999. Took estrogen for 10 years beginning at age 54. Took progesterone for 10 years beginning at age 54. Taking other hormone for 16 years. Physical Findings: Nurse did not find any significant physical abnormalities on exam. MG 3D Diag Mammo W/Cad LT CC and MLO view(s) were taken of the left breast. Prior study comparison: January 27, 2018, left breast MG diagnostic mammo LT wo CAD. December 22, 2017, bilateral MG 3d diag mammo w/cad TIERRA. The breast tissue is heterogeneously dense. This may lower the sensitivity of mammography. Benign calcifications in the left breast. Lateral middle depth asymmetry improves on spot compression. Post therapy and biopsy change on the left. These results were verbally communicated with the patient and result sheet given to the patient on 07/20/18. ASSESSMENT: Benign, BI-RAD 2 RECOMMENDATION: Follow-up diagnostic mammogram of both breasts in 6 months. Back on schedule.
--- NOTE | 2018-07-21 08:23 | USB ---
Reason for exam: follow-up at short interval from prior study. History: Patient is postmenopausal, has history of bilateral breast cancer at age 77, has history of other cancer at age 76, and is nulliparous. Family history of premenopausal breast cancer in sister at age 43. Benign US breast localization LT, January 27, 2018. US discontinued breast bx LT of the left breast, January 14, 2018. Benign US breast aspiration single LT of the left breast, August 12, 2016. Benign US breast needle core LT of the left breast, August 12, 2016. Malignant left breast needle localization of both breasts, March 09, 2013. Malignant left mammotome panel of the left breast, February 23, 2013. Benign cyst aspiration of the left breast, 1999. Took estrogen for 10 years beginning at age 54. Took progesterone for 10 years beginning at age 54. Taking other hormone for 16 years. US Breast LT Left complete breast ultrasound includes all four quadrants, the retroareolar region and axilla. Finding demonstrates a 1.5 x 0.4 x 1.4cm hypoechoic lesion at 2 o'clock previously biopsied with internal marker, a 0.4 x 0.4 x 0.4cm cystic lesion at 11 o'clock, and lumpectomy site at 6 o'clock and 10 o'clock. These results were verbally communicated with the patient and result sheet given to the patient on 07/20/18. ASSESSMENT: Benign, BI-RAD 2 RECOMMENDATION: Follow-up diagnostic mammogram of both breasts in 6 months. Back on schedule.
== END | disposition home or self-care (01) ==
LOC: RADMAMWWP 14:24
PROVIDERS: ATTEND Surgery
DX: R92.8 Other abnormal and inconclusive findings on diagnostic imaging of breast (principal)
CPT/HCPCS: 77065; 76641; G0279; 77061

== ENCOUNTER → 2018-08-20 | Outpatient (CLI) | payer MEDICARE ==
[2018-08-20 13:30] VITALS: BP 106/54; PULSE 58; RESP 18; TEMP 97.6; BMI 37.0
--- NOTE | 2018-08-20 13:55 | P.PN ---
Subjective Progress Note Date: 08/20/18 Heather is an 82-year-old white female who is status post left breast lumpectomy approximately 7 years ago for malignancy. She received radiation therapy after this. In 2018 she was noted to have a radiographic abnormality in the left breast in attempted ultrasound-guided core biopsy was canceled secondary to vascularity in the vicinity of the lesion. She subsequently underwent open biopsy and pathology was benign. The patient was noted to have fat necrosis and fibrosis on the biopsy. Since that time the patient states that she has had some slight drainage which is yellow-green in nature at the medial aspect of the incision. She is not having any drainage at the present time. She underwent a left breast mammogram and ultrasound in July 2018 and both were felt to be BIRADS 2 and benign she is recommended to have a bilateral mammogram in 6 months. Family history: Father: Liver Sr.: Bilateral breast cancer Bladder: Multiple myeloma Nephew: Larynx cancer Maternal cousins: Brain cancer, pancreatic cancer Patient: Bladder cancer Patient: Breast cancer Surgical history: Left breast lumpectomy Surgery for bladder cancer Skin lesions removed Medical history: Celiac disease Peripheral sensory polyneuritis Review of systems: HEENT:blurred vision lung: none heart: none GI: celiac disease Gu: bladder cancer Musculoskeletal: back pain Objective - Vital Signs Vital signs: Vital Signs Temp 97.6 F 08/20/18 13:26 Pulse 58 L 08/20/18 13:26 Resp 18 08/20/18 13:26 BP 106/54 08/20/18 13:26 Pulse Ox 98 08/20/18 13:26 Intake & Output 08/19/18 08/20/18 08/20/18 18:59 06:59 18:59 Weight 86.183 kg - Exam BMI 37.1 - Constitutional General appearance: Present: obese - EENT Eyes: Present: EOMI ENT: Present: hearing grossly normal - Neck Neck: Present: normal ROM - Respiratory Respiratory: bilateral: CTA - Cardiovascular Rhythm: regular Heart sounds: normal: S1, S2 - Gastrointestinal General gastrointestinal: Present: soft - Integumentary Integumentary: Present: normal turgor - Musculoskeletal Musculoskeletal: Present: gait normal - Psychiatric Psychiatric: Present: A&O x's 3, appropriate affect, intact judgment & insight - Additional findings Additional findings: breast exam: right breast: Multi-positional exam no dominant masses or nodules of concern Right axilla: No adenopathy of concern Left breast: Chronic draining sinus left breast upper inner quadrant area, well- healed scar from prior surgery in the inferior aspect of the breast, fibrocystic changes, radiation changes to the breast, no additional masses in the breast Left axilla: No adenopathy of concern Assessment and Plan Assessment: Impression: 1. History of left breast cancer status post lumpectomy and radiation therapy 2. 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 Fibrocystic breast changes 4. Family history of cancer 5. Celiac disease 6. polyneuritis Cultures were obtained of the area of concern in the left breast. This was obtained using a culture swab. Plan: 1. Cultures to be obtained of the area of drainage of the left breast 2. Open surgical drainage and irrigation of the area of concern in the left breast 3. Medical management of medical conditions 4. No evidence of recurrent cancer at this time 5. Bilateral mammogram in 6 months time physician exam at that time Risks and benefits of the procedure been discussed with the patient and she is going to be scheduled in the near future. cc: DR. Gasca, DR. Kim Alberto
== END ==
LOC: WWCWWP 12:46
PROVIDERS: ATTEND Surgery
DX: N64.0 Fissure and fistula of nipple (principal)
CPT/HCPCS: 87070; 87205

== ENCOUNTER 2018-09-01 07:15 | Day surgery (SDC) | payer MEDICARE ==
[2018-08-31 08:44] VITALS: BMI 33.2
[~2018-09-01 07:15] MED LIST changes: +HEPARIN SODIUM,PORCINE 5,000 UNIT/ML 1 ML VIAL SQ ONE; +MORPHINE SULFATE 4 MG/ML SYRINGE IV PRN
[2018-09-01] MEDS ORDERED: LIDOCAINE 1% 20 ML VIAL (10MG/ML) FOR IV START INTRADERMA ONE (08:00)
[2018-09-01] MEDS ORDERED: ONDANSETRON 4 MG/2 ML VIAL IVP ONE (08:00)
[2018-09-01] MEDS ORDERED: DEXAMETHASONE SOD PHOSPHATE 10 MG/ML 1 ML VIAL IV ONE (08:00)
[2018-09-01] MEDS ORDERED: fentaNYL (PF) 50 MCG/ML 2 ML AMP IV ONE (08:24)
[2018-09-01] MEDS ORDERED: ROPIVACAINE 5 MG/ML 30 ML VIAL ONE (08:46)
[2018-09-01] MEDS ORDERED: PROPOFOL 10 MG/ML 20 ML VIAL IV ONE (08:46)
[2018-09-01] MEDS ORDERED: LIDOCAINE 1% INJ 10MG/ML (20 ML MDV) ONE (08:46)
[2018-09-01] MEDS ORDERED: fentaNYL (PF) 50 MCG/ML 2 ML AMP ONE (08:46)
--- NOTE | 2018-09-01 08:50 | P.ONQ ---
Anesthesiology Proc Note - PNB - Peripheral Nerve Block Performed Left Other (see comment) Single Time Out Performed: Yes (Pectoralis Block Type 1) Procedure Start Time: 08:24 Procedure Stop Time: 08:30 Indication: Acute Post-Operative Pain, Analgesia Sedation Type: Awake Preparation: Sterile Prep Position: Supine Catheter: None Needle Types: On-Q Needle Size: 50mm (2") Needle Gauge: 20 Technique: Ultrasound Injectate: 0.5% Ropivacaine (see comment for volume) Blood Aspirated: No Pain Paresthesia on Injection Noted: No Resistance on Injection: Normal Events: Uneventful and Well Tolerated (20 ml total rop.)
[2018-09-01] MEDS ORDERED: CLINDAMYCIN 150 MG/ML 4 ML VIAL IVPB ONE (09:00)
[2018-09-01] MEDS ORDERED: HEPARIN SODIUM,PORCINE 5,000 UNIT/ML 1 ML VIAL SQ ONE (09:01)
--- NOTE | 2018-09-01 09:55 | P.OP ---
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 Her prior cultures have been observed and they were consistent with skin alexander. There was no definite abscess. The area of the fistula was excised. This extended into dense scar tissue which had previously been radiated. Wide excision of the scar tissue was performed. The wound was well irrigated. There was no evidence of any active bleeding. Culture was obtained. There was no evidence of any infection. The deep tissues were able to be closed with a 3-0 Vicryl suture. The subcutaneous tissue was closed with a 4-0 Monocryl. The skin was closed with a nylon suture. I considered leaving the wound open, however there was no evidence of any infection, and it was felt this would heal better if closed. If she begins to develop any infection and this can be opened.
--- NOTE | 2018-09-01 09:57 | P.DS ---
Providers Attending physician: Krystyna Ellis Primary care physician: Alex Alberto Plan - Discharge Summary Discharge Rx Participant: No New Discharge Prescriptions: No Action Vitamin E 800 mg PO DAILY Multivitamins, Thera [Multivitamin] 1 tab PO DAILY Levothyroxine Sodium [Synthroid] 25 mcg PO DAILY Lansoprazole 30 mg PO DAILY Cod Liver Oil 1 tab PO DAILY Cholecalciferol [Vitamin D3] 2,000 unit PO DAILY Anastrozole 1 mg PO DAILY Ranitidine HCl [Zantac] 150 mg PO HS rOPINIRole HCL [Requip] 0.5 mg PO HS Atorvastatin [Lipitor] 20 mg PO HS Magnesium 200 mg PO DAILY Sertraline [Zoloft] 50 mg PO HS LORazepam [Ativan] 0.5 mg PO TID Metoprolol Succinate (ER) [Toprol Xl] 50 mg PO DAILY Lisinopril-Hctz 20-25 mg [Zestoretic 20-25] 1 tab PO DAILY Discharge Medication List Anastrozole 1 mg PO DAILY 01/11/15 [History] Cholecalciferol [Vitamin D3] 2,000 unit PO DAILY 01/11/15 [History] Cod Liver Oil 1 tab PO DAILY 01/11/15 [History] Lansoprazole 30 mg PO DAILY 01/11/15 [History] Levothyroxine Sodium [Synthroid] 25 mcg PO DAILY 01/11/15 [History] Multivitamins, Thera [Multivitamin] 1 tab PO DAILY 01/11/15 [History] Vitamin E 800 mg PO DAILY 01/11/15 [History] Atorvastatin [Lipitor] 20 mg PO HS 08/18/17 [History] Magnesium 200 mg PO DAILY 08/18/17 [History] Ranitidine HCl [Zantac] 150 mg PO HS 08/18/17 [History] rOPINIRole HCL [Requip] 0.5 mg PO HS 08/18/17 [History] LORazepam [Ativan] 0.5 mg PO TID 01/09/18 [History] Sertraline [Zoloft] 50 mg PO HS 01/09/18 [History] Lisinopril-Hctz 20-25 mg [Zestoretic 20-25] 1 tab PO DAILY 08/31/18 [History] Metoprolol Succinate (ER) [Toprol Xl] 50 mg PO DAILY 08/31/18 [History] Follow up Appointment(s)/Referral(s): Krystyna Ellis MD [STAFF PHYSICIAN] - 1-2 Days Activity/Diet/Wound Care/Special Instructions: Do not drive until seen by Dr. Eduardo Wear bra and less showering May shower after 48 hours Discharge Disposition: HOME SELF-CARE
[2018-09-01 10:13] VITALS: TEMP 96.9
[2018-09-01 10:48] VITALS: RESP 18
[2018-09-01] MEDS ORDERED: HYDROcodone/APAP 5-325MG 1 EACH TAB PO ONE (11:12)
[2018-09-01 11:37] VITALS: BP 132/62; PULSE 59
== END 2018-09-01 12:13 | disposition home or self-care (01) ==
LOC: OR 07:15
PROVIDERS: ATTEND Surgery
DX: N61.0 Mastitis without abscess (principal); L82.1 Other seborrheic keratosis; N64.1 Fat necrosis of breast; L90.5 Scar conditions and fibrosis of skin; K90.0 Celiac disease; N60.12 Diffuse cystic mastopathy of left breast; G62.9 Polyneuropathy, unspecified; I10 Essential (primary) hypertension; E78.5 Hyperlipidemia, unspecified; E07.9 Disorder of thyroid, unspecified; G25.81 Restless legs syndrome; K21.9 Gastro-esophageal reflux disease without esophagitis; Z85.3 Personal history of malignant neoplasm of breast; Z85.51 Personal history of malignant neoplasm of bladder; Z92.3 Personal history of irradiation; Z80.3 Family history of malignant neoplasm of breast; Z80.0 Family history of malignant neoplasm of digestive organs; Z80.8 Family history of malignant neoplasm of other organs or systems; Z80.7 Family history of other malignant neoplasms of lymphoid, hematopoietic and related tissues; Z79.811 Long term (current) use of aromatase inhibitors; Z79.890 Hormone replacement therapy; Z79.899 Other long term (current) drug therapy; Z88.0 Allergy status to penicillin; Z88.2 Allergy status to sulfonamides; Z91.048 Other nonmedicinal substance allergy status
CPT/HCPCS: 19120; 64450; 88304; 87070; 87205; 87075; J1644; J1100; J2405; J2001; J3010; J2795; J2704; 64490

== ENCOUNTER → 2018-09-03 | Outpatient (CLI) | payer MEDICARE ==
[2018-09-03 08:34] VITALS: BP 181/72; PULSE 61; RESP 18; TEMP 96.4; BMI 34.2
--- NOTE | 2018-09-03 08:52 | P.PN ---
Progress Note - Text Progress Note Date: 09/03/18 Patient is status post excision of a fistula left breast. The pathology revealed benign breast tissue with scar, fat necrosis and inflammation. The patient has no complaints related to the procedure. Physical exam: Incision clean and dry Lungs clear Heart regular rate and rhythm Impression: 1. Status post excision of fistula left breast 2. No evidence of any infection 3. No evidence of any hematoma 4. Prior left breast lumpectomy and radiation therapy for malignancy, no evidence of any recurrent cancer Plan: 1. Continue present therapy 2. Follow-up next week CC: Dr. Alberto
== END | disposition home or self-care (01) ==
LOC: WWCWWP 08:19
PROVIDERS: ATTEND Surgery
DX: Z53.9 Procedure and treatment not carried out, unspecified reason (principal)

== ENCOUNTER → 2018-09-10 | Outpatient (CLI) | payer MEDICARE ==
[2018-09-10 08:38] VITALS: BP 147/83; PULSE 85; RESP 18; TEMP 98; BMI 33.2
--- NOTE | 2018-09-10 09:42 | P.PN ---
Subjective Progress Note Date: 09/10/18 Principal diagnosis: Status post debridement of nonhealing wound left breast [id number] Heather status post debridement of a nonhealing wound on 1618. The wound was in her left breast which had previously been radiated fourth malignancy. The debridement revealed benign breast tissue with scar, fat necrosis and inflammation. Additionally cultures have been obtained which showed no PMNs no organisms and ovary are normal skin alexander. The patient states she was doing last night when she noted drainage from the incision site. She has not had any fever or chills. Objective - Vital Signs Vital signs: Vital Signs Temp 98.0 F 09/10/18 08:30 Pulse 85 09/10/18 08:30 Resp 18 09/10/18 08:30 BP 147/83 09/10/18 08:30 Pulse Ox 96 09/10/18 08:30 Intake & Output 09/09/18 09/10/18 09/10/18 18:59 06:59 18:59 Weight 77.111 kg - Constitutional General appearance: Present: obese - EENT Eyes: Present: EOMI ENT: Present: hearing grossly normal - Cardiovascular Rhythm: regular Heart sounds: normal: S1, S2 - Integumentary Integumentary Comment(s): Examination of the incision site reveals that there is serous fluid draining in the medial aspect of the site. It is up slightly cloudy in color. There does not appear to be healing well the length of the incision. The patient did have a 5-[address] There is mild erythema at the site of the inci bouchra. Assessment and Plan Assessment: Impression: 1. Patient status post debridement of a nonhealing wound on the left breast 2. Radiated breast tissue 3. The incision at this time has drainage from the medial aspect and there is some mild erythema surrounding this area Plan: 1. Removal of the running sutures with placement of some interrupted sutures to secure the medial and lateral aspects of the wound 2. Irrigation of the wound 3. Packing with healing from the inside out 4. Appointment with wound clinic 5. On healthcare nurse 6. Oral antibiotic clindamycin Cc: Dr. Alberto
--- NOTE | 2018-09-10 09:47 | P.OP ---
Date of Procedure: 09/10/18 Preoperative Diagnosis: Drainage from incision site left breast Postoperative Diagnosis: Same Procedure(s) Performed: Removal of skin running suture, irrigation of wound and packing, placement of interrupted sutures Anesthesia: local Surgeon: Krystyna Ellis Pathology: none sent Condition: stable Disposition: same day Indications for Procedure: Drainage from the medial aspect of nonhealing wound Operative Findings: Serous fluid Description of Procedure: Patient is an 83-year-old white female who is status post debridement of a nonhealing wound in her left breast. She comes for postoperative visit and at this time she has drainage from the area of the incision with nonhealing of the incision on the medial aspect of the wound. I recommended removal of the running suture with replacement with some interrupted sutures irrigation of the wound and packing. The patient understands the risks and benefits of this and wishes to proceed. The area in the left breast was prepped using Betadine. 1% lidocaine was used to anesthetize the area of the incision. The 5-0 suture was removed. Several sutures were placed medial and lateral on the incision. The central portion of the wound was left open. This the wound was well irrigated. Serous fluid was obtained. No evidence of infection was identified. Cultures were obtained. The wound was then packed using plain gauze. The patient tolerated the procedure in stable condition. The procedure was done after informed consent and timeout had been performed.
== END ==
LOC: WWCWWP 08:20
PROVIDERS: ATTEND Surgery
DX: T81.89XA Other complications of procedures, not elsewhere classified, initial encounter (principal); C50.912 Malignant neoplasm of unspecified site of left female breast; Z92.3 Personal history of irradiation
CPT/HCPCS: 87070; 87205

== ENCOUNTER → 2018-09-11 | Outpatient (CLI) | payer MEDICARE ==
[2018-09-11 08:45] VITALS: BP 151/74; PULSE 107; RESP 18; TEMP 96.9; BMI 33.2
--- NOTE | 2018-09-16 09:26 | PN ---
Progress Note - Text Progress Note Date: 09/11/18 Heather status post debridement of a nonhealing wound on 09-01-18. Postoperatively when she was seen her wound in her left breast was draining. The sutures were removed and the wound was irrigated and additional lateral and medial sutures were placed. The patient comes today for changing the packing. She states that she did have some drainage last night. The wound is clean. And she does not complain of any fever or chills. She has an appointment with the wound clinic, and a home healthcare nurse. She has been started prophylactically and clindamycin. Physical exam: Incision is clean, packing is changed, cultures were obtained and these are pending the patient is doing well Impression: 1. Patient status post debridement of a nonhealing wound in the left breast 2. Radiated breast tissue 3. Incision at this time is packed there is no evidence of any erythema or cellulitis Plan: 1. Packing changed 2. Home health care to see patient on a daily basis 3. Appointment at wound clinic 4. Patient started on oral antibiotics 5. Cultures pending 6. Follow-up Dr. Eduardo 1 1/2 weeks Cc: Dr. Remy FRANCO
== END ==
LOC: WWCWWP 08:21
PROVIDERS: ATTEND Surgery
DX: Z53.9 Procedure and treatment not carried out, unspecified reason (principal)

== ENCOUNTER → 2018-09-28 | Outpatient (CLI) | payer MEDICARE ==
--- NOTE | 2018-09-28 17:45 | BD ---
EXAMINATION TYPE: Axial Bone Density DATE OF EXAM: 09/28/2018 COMPARISON: 03/19/2017 CLINICAL HISTORY: 82-year-old female osteopenia, postmenopausal screening with HRT Height: 58 IN Weight: 176 LBS FRAX RISK QUESTIONS: Family History (Parent hip fracture): YES MOTHER RISK FACTORS HISTORY OF: Active: LIMITED Postmenopausal woman: AGE 60 Take estrogen and/or progesterone medications: NOT NOW How long: AGE 45-60 MEDICATIONS: Thyroid Medications: YES Which medication: SYNTHROID How Long: PT DOES NOT KNOW Osteoporosis Medications: PT DOES NOT KNOW Additional Medications: VIT D, CALCIUM, SYNTHROID, HIGH BLOOD PRESSURE PILL, INDIGESTION MED, Additional History: BREAST CANCER WITH RADIATION EXAM MEASUREMENTS: Bone mineral densitometry was performed using the [employer] System. Bone mineral density as measured about the Lumbar spine is: ----- L1-L4(G/cm2): 1.028 T Score Values are as follows: ----- L1: -3.0 ----- L2: -2.7 ----- L3: -0.1 - sclerotic degenerative change ----- L4: 0.0 - sclerotic degenerative change ----- L1-L4: -1.3 Bone mineral density has: Decreased -0.7% since study of: 03/19/2017 Bone mineral density about the R hip (g/cm2): 0.817 Bone mineral density about the L hip (g/cm2): 0.757 T Score values are as follows: -----R Neck: -1.6 -----L Neck: -2.0 -----R Total: -1.5 -----L Total: -1.5 Bone mineral density has: Increased 2.4% since study of: 03/19/2017 IMPRESSION: Osteoporosis (T Score less than -2.5) as averaged between L1 and L2 vertebral bodies. L3 and L4 are s clerotic secondary to underlying degenerative change artifactually increasing the bone density measur ement. There is increased fracture risk and therapy is usually indicated based on age. Re-Screen 1-2 years. NOTE: T-SCORE=SD OF THE YOUNG ADULT MEAN.
== END ==
LOC: RADBDWWP 12:15
PROVIDERS: ATTEND Internal Medicine Hematology & Oncology
DX: M81.0 Age-related osteoporosis without current pathological fracture (principal); M47.816 Spondylosis without myelopathy or radiculopathy, lumbar region; C50.112 Malignant neoplasm of central portion of left female breast; Z79.890 Hormone replacement therapy
CPT/HCPCS: 77080

== ENCOUNTER → 2018-10-01 | Outpatient (CLI) | payer MEDICARE ==
[2018-10-01 09:06] VITALS: BP 109/78; PULSE 82; RESP 18; TEMP 97; BMI 33.2
--- NOTE | 2018-10-01 09:12 | P.PN ---
Progress Note - Text Progress Note Date: 10/01/18 Heather is an 82-year-old white female status post left breast lumpectomy approximately 7 years ago for malignancy. She received radiation therapy after this and has had some increased nodularity in the upper inner aspect of the left breast. She underwent excision of this area on . This revealed benign breast tissue with scar, fat necrosis, and inflammation. The patient postprocedure was noted to have some difficulty with wound healing believed to be related to the radiation changes. She is subsequently being seen by the wound clinic. She has a wound VAC in place. She has no evidence of any infection at this time. She presents today for evaluation. Physical examination: Lungs: Clear to auscultation Normal respiratory excursion Heart: Regular rate and rhythm S1 check S2 check Left breast: Wound VAC is in place There is no evidence of any cellulitis or inflammation Impression: 1. Open wound left breast status post resectional biopsy of area of abnormality 2. Prior history of left breast cancer 3. GERD 4. High cholesterol 5. Hypertension 6. Anxiety/depression 7.. History of bladder cancer 8. Prior history of skin cancer Plan: 1. Continued care of the left breast wound as per wound care 2. Follow-up here in 2 months time 3. Follow up sooner if any questions or concerns 4. Repeat left breast mammogram in 6 months time depending on how wound is healing Cc: Dr. Alberto
== END | disposition home or self-care (01) ==
LOC: WWCWWP 08:39
PROVIDERS: ATTEND Surgery
DX: Z53.9 Procedure and treatment not carried out, unspecified reason (principal)

== ENCOUNTER → 2018-12-17 | Outpatient (CLI) | payer MEDICARE ==
[2018-12-17 08:55] VITALS: BP 130/82; PULSE 63; RESP 18; TEMP 98.1; BMI 33.2
--- NOTE | 2018-12-17 09:29 | P.PN ---
Subjective Progress Note Date: 12/17/18 Heather is an 82-year-old white female who is status post left breast lumpectomy approximately 7 years ago for malignancy. She received radiation therapy after this. In 2017 she was noted to have a radiographic abnormality in the left breast in attempted ultrasound-guided core biopsy was canceled secondary to vascularity in the vicinity of the lesion. She subsequently underwent open biopsy and pathology was benign. The patient was noted to have fat necrosis and fibrosis on the biopsy. Since that time the patient states that she has had some slight drainage which is yellow-green in nature at the medial aspect of the incision. She underwent a left breast mammogram and ultrasound in July 2018 and both were felt to be BIRADS 2 and benign. On 08-20-18 she underwent open surgical drainage and incision of the area. This was for a nonhealing wound of the left breast. Since that time she required the incision to be opened and the wound to be packed secondary to nonhealing. She was subsequently sent to the wound care clinic. She presents for follow-up at this time. The patient continues to follow at the wound clinic. She presently has a wound VAC in place. She has not had any hyperbaric therapy. Family history: Father: Liver sister: Bilateral breast cancer brother: Multiple myeloma Nephew: Larynx cancer Maternal cousins: Brain cancer, pancreatic cancer Patient: Bladder cancer Patient: Breast cancer Surgical history: Left breast lumpectomy Surgery for bladder cancer Skin lesions removed Medical history: Celiac disease Peripheral sensory polyneuritis Review of systems: HEENT:blurred vision lung: none heart: none GI: celiac disease Gu: bladder cancer Musculoskeletal: back pain Objective - Vital Signs Vital signs: Vital Signs Temp 98.1 F 12/17/18 08:50 Pulse 63 12/17/18 08:50 Resp 18 12/17/18 08:50 BP 130/82 12/17/18 08:50 Pulse Ox 96 12/17/18 08:50 Intake & Output 12/16/18 12/17/18 12/17/18 18:59 06:59 18:59 Weight 77.111 kg - Exam BMI 33.2 - Constitutional General appearance: Present: obese - EENT Eyes: Present: EOMI ENT: Present: hearing grossly normal - Neck Neck: Present: normal ROM - Respiratory Respiratory: bilateral: CTA - Cardiovascular Rhythm: regular Heart sounds: normal: S1, S2 - Integumentary Integumentary: Present: normal turgor - Musculoskeletal Musculoskeletal: Present: gait normal - Psychiatric Psychiatric: Present: A&O x's 3, appropriate affect, intact judgment & insight - Additional findings Additional findings: Breast examination: Right breast: Multi-positional exam fibrocystic changes, no dominant masses or nodules of concern Right axilla: No adenopathy of concern left breast: Wound VAC in place making examination somewhat difficult Fibrocystic changes, scar changes in the lateral aspect of the breast revealed believed related to prior surgeries Left axilla: No adenopathy of concern Assessment and Plan Assessment: Impression: 1. Healing wound left breast status post resectional biopsy of area of abnormality, status post radiation therapy to the left breast 2. Prior history of left breast cancer 2. GERD 4. High cholesterol 5. Hypertension 6. Anxiety/depression 7. History of bladder cancer 8. Prior history of skin cancer Plan: 1. Continue care of the left breast as per wound clinic 2. Follow appearing 2 months 3. Left breast mammogram in March, bilateral mammogram on scheduled Cc: Dr. Alberto
== END | disposition home or self-care (01) ==
LOC: WWCWWP 08:44
PROVIDERS: ATTEND Surgery
DX: Z53.9 Procedure and treatment not carried out, unspecified reason (principal)

== ENCOUNTER → 2019-03-16 | Outpatient (CLI) | payer MEDICARE ==
--- NOTE | 2019-03-16 16:13 | US ---
EXAMINATION TYPE: US thyroid st tissue head/neck DATE OF EXAM: 03/16/2019 COMPARISON: NONE CLINICAL HISTORY: R59.0 Enlarged lymph nodes. Pt states physician felt palpable lump left lateral nec k, pt denies feeling this area FINDINGS/TECHNIQUE: Color and grayscale imaging was performed of the palpable abnormality of the left lateral neck. At the location of the palpable abnormality where pt states physician felt palpable there is a 2.0 x 1.2 x 1.2 cm mass with internal vascularity present. This is hypoechoic and appears solid in nature. IMPRESSION: Solid 2.0 cm vascular mass corresponding the palpable abnormality left neck. Abnormal lym ph node is a possibility. Fine-needle aspiration/percutaneous biopsy is recommended.
== END | disposition home or self-care (01) ==
LOC: RADUSMAIN 15:33
PROVIDERS: ATTEND Family Medicine
DX: R22.1 Localized swelling, mass and lump, neck (principal); Z85.3 Personal history of malignant neoplasm of breast
CPT/HCPCS: 76536

== ENCOUNTER → 2019-04-01 | Outpatient (CLI) | payer MEDICARE ==
[2019-04-01 13:34] VITALS: BP 122/75; PULSE 72; RESP 18; TEMP 98; BMI 31.2
--- NOTE | 2019-04-01 14:06 | P.PN ---
Subjective Progress Note Date: 04/01/19 Principal diagnosis: wound evaluation left breast Heather is an 82-year-old white female who is status post left breast lumpectomy approximately 7 years ago for malignancy. She received radiation therapy after this. In 2017 she was noted to have a radiographic abnormality in the left breast in attempted ultrasound-guided core biopsy was canceled secondary to vascularity in the vicinity of the lesion. She subsequently underwent open biopsy and pathology was benign. The patient was noted to have fat necrosis and fibrosis on the biopsy. Since that time the patient states that she developed some slight drainage which was yellow-green in nature at the medial aspect of the incision. She underwent a left breast mammogram and ultrasound in July 2018 and both were felt to be BIRADS 2 and benign. On 08-20-18 she underwent open surgical drainage and incision of the area. This was for a nonhealing wound of the left breast. Since that time she required the incision to be opened and the wound to be packed secondary to nonhealing. She was subsequently sent to the wound care clinic. She finished at the wound clinci 6 weeks ago. She does not have a wound vac at this time. She also had hyperbaric oxygen therapy. She no longer has home care. She did not have chemotherapy. The patient has recently been noted to have a nodule in her left cervical area. She is scheduled for biopsy at the present time however she is uncertain if she will make that she has vacation plans. Heather states the wound is closed, but is still filling in. She is trying to get fitted for bras. Family history: Father: Liver sister: Bilateral breast cancer brother: Multiple myeloma Nephew: Larynx cancer Maternal cousins: Brain cancer, pancreatic cancer Patient: Bladder cancer Patient: Breast cancer Hormonal history: Menarche:14 G0 menopause: unsure of age BCP: none hormones: 15 years Surgical history: Left breast lumpectomy Surgery for bladder cancer Skin lesions removed Medical history: Celiac disease Peripheral sensory polyneuritis Review of systems: HEENT:blurred vision lung: none heart: none GI: celiac disease Gu: bladder cancer Musculoskeletal: back pain Integument: wound left breast neurologic: none endocrine: fatigue hematologic: none allergies: as per HPI, celiac disease Objective - Vital Signs Vital signs: Vital Signs Temp 98.0 F 04/01/19 13:29 Pulse 72 04/01/19 13:29 Resp 18 04/01/19 13:29 BP 122/75 04/01/19 13:29 Pulse Ox 92 L 04/01/19 13:29 Intake & Output 03/31/19 04/01/19 04/01/19 18:59 06:59 18:59 Weight 72.575 kg - Exam BMI 31.2 - Constitutional General appearance: Present: obese - EENT Eyes: Present: EOMI ENT: Present: hearing grossly normal - Neck Neck: Present: normal ROM - Respiratory Respiratory: bilateral: CTA - Cardiovascular Rhythm: regular Heart sounds: normal: S1, S2 - Gastrointestinal Gastrointestinal Comment(s): no guarding or rebound, normal bowel sounds General gastrointestinal: Present: soft - Integumentary Integumentary Comment(s): scar left breast Integumentary: Present: normal turgor - Musculoskeletal Musculoskeletal: Present: gait normal - Psychiatric Psychiatric: Present: A&O x's 3, appropriate affect, intact judgment & insight - Additional findings Additional findings: breast exam: right breast: multipositional exam no dominant masses or nodules of concern, fibrocystic breast changes Right axilla: No adenopathy of concern Left breast: Scarred and distorted related to lumpectomy, radiation treatment, nonhealing wound no dominant masses or nodules of concern, fibrocystic changes Left axilla: No adenopathy of concern Bra: 40D ptosis grade3 Assessment and Plan Assessment: Impression: 1. Status post left breast lumpectomy and radiation therapy approximately 7 years ago for cancer 2. Scarred, distorted left breast making examination difficult 3. No clinical evidence of recurrent cancer 4. patient unsure of when last right breast mammogram was done/ left breast mammogram / left brest due July 2019 5. Asymmetry of the breast with right being larger than the left Plan: 1. Right breast mammogram 2. Left breast mammogram July [id number] with examination at that time 3. We have had discussion regarding possibility of a left mastectomy to make bra fitting easier and possible right reduction. At this time the patient is going to consider this. Cc: Dr. Remy friedman. about 25 minutes
== END ==
LOC: WWCWWP 13:13
PROVIDERS: ATTEND Surgery
DX: Z53.9 Procedure and treatment not carried out, unspecified reason (principal)

== ENCOUNTER 2019-05-03 08:49 | Day surgery (SDC) | payer MEDICARE ==
[2019-05-03 09:19] VITALS: RESP 18; TEMP 98.1
[2019-05-03 10:55] VITALS: BP 153/59; PULSE 62
--- NOTE | 2019-05-03 14:28 | US ---
EXAMINATION TYPE: US biopsy thorax or neck DATE OF EXAM: 05/03/2019 HISTORY: Left neck mass. FINDINGS: Maximal barrier technique was utilized. The skin overlying a suitable path to the patient' s left neck mass was localized with ultrasound and the overlying skin prepped and draped. Ultrasound was utilized with sterile technique. Lidocaine was used for local anesthesia. A skin jl was made with a scalpel. An 18-gauge needle was advanced under direct ultrasound guidance and core specimen obtained of the mass, second pass was made with a 18-gauge needle using similar technique. Specimen submitted in formalin to Pathology. Following the procedure, hemostasis achieved and the patient is discharged in stable condition without complication. IMPRESSION:STATUS POST ULTRASOUND GUIDED CORE BIOPSY OF left neck MASS, PATHOLOGY IS PENDING. THIS P ROCEDURE IS PERFORMED BY THE UNDERSIGNED.
== END 2019-05-03 10:50 | disposition home or self-care (01) ==
LOC: RADPROMAIN 08:49
PROVIDERS: ATTEND Internal Medicine Hematology & Oncology
DX: R59.0 Localized enlarged lymph nodes (principal); C44.91 Basal cell carcinoma of skin, unspecified; C67.9 Malignant neoplasm of bladder, unspecified; C50.919 Malignant neoplasm of unspecified site of unspecified female breast
CPT/HCPCS: 21550; 76942; 88305

== ENCOUNTER → 2019-05-05 | Outpatient (CLI) | payer MEDICARE ==
--- NOTE | 2019-05-06 10:03 | MM ---
Reason for exam: follow-up at short interval from prior study. Last mammogram was performed 9 months ago. History: Patient is postmenopausal, has history of bilateral breast cancer at age 77, has history of other cancer at age 76, and is nulliparous. Family history of premenopausal breast cancer in sister at age 43. Benign US breast localization LT, January 27, 2018. US discontinued breast bx LT of the left breast, January 14, 2018. Benign US breast aspiration single LT of the left breast, August 12, 2016. Benign US breast needle core LT of the left breast, August 12, 2016. Malignant left breast needle localization of both breasts, March 09, 2013. Malignant left mammotome panel of the left breast, February 23, 2013. Benign cyst aspiration of the left breast, 1999. Took estrogen for 10 years beginning at age 54. Took progesterone for 10 years beginning at age 54. Taking other hormone for 16 years. Physical Findings: Nurse did not find any significant physical abnormalities on exam. MG 3D Diag Mammo W/Cad RT CC, MLO, and XCCL view(s) were taken of the right breast. Prior study comparison: July 20, 2018, left breast MG 3d diag mammo w/cad LT. January 27, 2018, left breast MG diagnostic mammo LT wo CAD. There are scattered fibroglandular densities. Finding: There are typically benign vascular, round, linear calcifications in the right breast. There is no discrete abnormality. These results were verbally communicated with the patient and result sheet given to the patient on 05/05/19. ASSESSMENT: Benign, BI-RAD 2 RECOMMENDATION: Routine screening mammogram in 1 year.
== END | disposition home or self-care (01) ==
LOC: RADMAMWWP 15:23
PROVIDERS: ATTEND Surgery
DX: Z08 Encounter for follow-up examination after completed treatment for malignant neoplasm (principal); Z85.3 Personal history of malignant neoplasm of breast
CPT/HCPCS: 77065; G0279; 77061

== ENCOUNTER → 2019-05-07 | Outpatient (CLI) | payer MEDICARE ==
[2019-05-07 13:21] VITALS: BP 116/73; PULSE 68; RESP 18; TEMP 97.5
--- NOTE | 2019-05-07 13:46 | P.PN ---
Subjective Tumor Stage IA [id number]/MS+HER2- on physical examination the patient is noted to have an approximately 1.5 cm cervical node on the left. She was scheduled for a needle biopsy however she states that this is not convenient for her and she states is going to reschedule this. She is also due for a right breast mammogram. She will follow up with us after the right breast mammogram and biopsy of the left cervical node. Original Note: Subjective Progress Note Date: 04/01/19 Principal diagnosis: wound evaluation left breast Heather is an 82-year-old white female who is status post left breast lumpectomy approximately 7 years ago for malignancy. She received radiation therapy after this. In 2017 she was noted to have a radiographic abnormality in the left breast in attempted ultrasound-guided core biopsy was canceled secondary to vascularity in the vicinity of the lesion. She subsequently underwent open biopsy and pathology was benign. The patient was noted to have fat necrosis and fibrosis on the biopsy. Since that time the patient states that she developed some slight drainage which was yellow-green in nature at the medial aspect of the incision. She underwent a left breast mammogram and ultrasound in July 2018 and both were felt to be BIRADS 2 and benign. On 08-20-18 she underwent open surgical drainage and incision of the area. This was for a nonhealing wound of the left breast. Since that time she required the incision to be opened and the wound to be packed secondary to nonhealing. She was subsequently sent to the wound care clinic. She finished at the wound clinci 6 weeks ago. She does not have a wound vac at this time. She also had hyperbaric oxygen therapy. She has no complaints related to her breast at this time. She no longer has home care. She did not have chemotherapy. The patient has recently been noted to have a nodule in her left cervical area. Heather had biopsy of the left cervical node on [id number]. This was nondiagnostic of a lymph node or neoplasia. Only fragments of benign fibrous tissue and skeletal muscle were identified. Heather had a right breast mammogram performed on [id number] this was felt to be benign BIRADS 2 and routine screening mammogram in 1 year was recommended. Her last left breast mammogram was 07-20-18. This was also a BIRADS 2 and felt to be benign. Patient will be due left breast mammogram in July 2018. Since the time of the left breast mammogram in July 2018 she has had nonhealing wound of the left breast for which she was treated in the wound center. Heather states the wound is closed, but is still filling in. She is trying to get fitted for bras. Family history: Father: Liver sister: Bilateral breast cancer brother: Multiple myeloma Nephew: Larynx cancer Maternal cousins: Brain cancer, pancreatic cancer Patient: Bladder cancer Patient: Breast cancer Hormonal history: Menarche:14 G0 menopause: unsure of age BCP: none hormones: 15 years Surgical history: Left breast lumpectomy Surgery for bladder cancer Skin lesions removed Medical history: Celiac disease Peripheral sensory polyneuritis Review of systems: HEENT:blurred vision lung: none heart: none GI: celiac disease Gu: bladder cancer Musculoskeletal: back pain Integument: wound left breast neurologic: none endocrine: fatigue hematologic: none allergies: as per HPI, celiac disease Objective - Vital Signs Vital signs: Vital Signs Temp 97.5 F L 05/07/19 13:18 Pulse 68 05/07/19 13:18 Resp 18 05/07/19 13:18 BP 116/73 05/07/19 13:18 Pulse Ox 96 05/07/19 13:18 Intake & Output 05/06/19 05/07/19 05/07/19 18:59 06:59 18:59 Weight 81.647 kg - Exam BMI 35.2 - Constitutional General appearance: Present: obese - EENT Eyes: Present: EOMI ENT: Present: hearing grossly normal - Neck Details: Left cervical lymph node mid cervical region posterior, attempted core biopsy pathology nondiagnostic No other cervical adenopathy of concern - Respiratory Respiratory: bilateral: CTA - Cardiovascular Rhythm: regular Heart sounds: normal: S1, S2 - Gastrointestinal General gastrointestinal: Present: soft - Integumentary Integumentary: Present: normal turgor - Musculoskeletal Musculoskeletal: Present: gait normal - Psychiatric Psychiatric: Present: A&O x's 3, appropriate affect, intact judgment & insight - Additional findings Additional findings: Breast examination: Right breast: Multiple positional exam no dominant masses or notches of concern Right axilla: No adenopathy of concern Left breast: Marked deformity related to prior lumpectomy/radiation treatment and scar tissue no evidence of recurrent cancer Left axilla: No adenopathy of concern Assessment and Plan Assessment: Impression: 1. Patient status post left breast lumpectomy radiation therapy for stage IA left breast cancer approximately 7 years ago 2. Scarred distorted left breast making examination difficult 3. Healed wound left breast after repeat biopsy and radiated tissue left nonhealing wound 4. Patient recent right breast mammogram BIRADS 2 benign, 2 for left breast mammogram in July 2019 5. Asymmetry of the breast was right being larger than the left 6. Left cervical adenopathy biopsy nondiagnostic/discordant Plan: 1. Left breast mammogram July 2019 with physician exam at that time 2. CT neck with contrast to evaluate the nodularity in the cervical posterior region 3. Follow-up after CT neck with contrast CC: DR. Alberto, Dr. [place] Encounter 20 minutes, > 50 % of time planning and counselling Time with Patient: Less than 30
== END | disposition home or self-care (01) ==
LOC: WWCWWP 11:54
PROVIDERS: ATTEND Surgery
DX: Z53.9 Procedure and treatment not carried out, unspecified reason (principal)

== ENCOUNTER → 2019-05-25 | Outpatient (CLI) | payer MEDICARE ==
--- NOTE | 2019-05-25 17:22 | CT ---
EXAMINATION TYPE: CT soft tissue neck w con DATE OF EXAM: 05/25/2019 COMPARISON: None HISTORY: Swelling left side of neck CT DLP: 380.3 mGycm CONTRAST: Patient injected with 80 mL of Isovue 300. TECHNIQUE: Axial images at 3 mm thick sections. Reconstructed images in the coronal plane and sagitt al plane are reviewed. FINDINGS: Limited CT sections are obtained the lung apices. The lung apices appear clear. CT neck: The torus tubarius and fossa of Rosenmuller are normal. Bartender Manager spaces are normal. Para nasal sinuses and mastoid air cells are clear. Parotid glands appear normal and symmetrical. Submandibular glands, are normal. Parapharyngeal spac es are normal. No suspicious adenopathy is evident. The hypopharynx appears within normal limits. Vocal cord level appear symmetrical. Thyroid as visualized is normal. Osseous structures are normal. IMPRESSIONS: 1. Normal soft tissue neck. 2. No suspicious abnormality to account for neck swelling
== END | disposition home or self-care (01) ==
LOC: RADCTMAIN 12:19
PROVIDERS: ATTEND Surgery
DX: R22.0 Localized swelling, mass and lump, head (principal)
CPT/HCPCS: 82565; 84520; 70491; 36415; Q9967

== ENCOUNTER → 2019-07-26 | Outpatient (CLI) | payer MEDICARE ==
--- NOTE | 2019-07-26 12:07 | MM ---
Reason for exam: additional evaluation requested from prior study. Last mammogram was performed 3 months ago. History: Patient is postmenopausal, has history of bilateral breast cancer at age 77, has history of other cancer at age 76, and is nulliparous. Family history of premenopausal breast cancer in sister at age 43. Benign US breast localization LT, January 27, 2018. US discontinued breast bx LT of the left breast, January 14, 2018. Benign US breast aspiration single LT of the left breast, August 12, 2016. Benign US breast needle core LT of the left breast, August 12, 2016. Malignant left breast needle localization of both breasts, March 09, 2013. Malignant left mammotome panel of the left breast, February 23, 2013. Benign cyst aspiration of the left breast, 1999. Took estrogen for 10 years beginning at age 54. Took progesterone for 10 years beginning at age 54. Taking other hormone for 16 years. Physical Findings: Nurse did not find any significant physical abnormalities on exam. MG 3D Diag Mammo W/Cad LT CC, MLO, LM, XCCM, and spot compression MLO view(s) were taken of the left breast. Prior study comparison: May 05, 2019, right breast MG 3d diag mammo w/cad RT. July 20, 2018, left breast MG 3d diag mammo w/cad LT. The breast tissue is heterogeneously dense. This may lower the sensitivity of mammography. Left extensive post surgical/post therapy change. Superior left asymmetries at posterior depth appear similar to 2018. Precautionary ultrasound. These results were verbally communicated with the patient and result sheet given to the patient on 07/26/19. ASSESSMENT: Incomplete: need additional imaging evaluation, BI-RAD 0 RECOMMENDATION: Ultrasound of the left breast. (superior)
--- NOTE | 2019-07-26 12:09 | USB ---
Reason for exam: additional evaluation requested from abnormal screening. History: Patient is postmenopausal, has history of bilateral breast cancer at age 77, has history of other cancer at age 76, and is nulliparous. Family history of premenopausal breast cancer in sister at age 43. Benign US breast localization LT, January 27, 2018. US discontinued breast bx LT of the left breast, January 14, 2018. Benign US breast aspiration single LT of the left breast, August 12, 2016. Benign US breast needle core LT of the left breast, August 12, 2016. Malignant left breast needle localization of both breasts, March 09, 2013. Malignant left mammotome panel of the left breast, February 23, 2013. Benign cyst aspiration of the left breast, 1999. Took estrogen for 10 years beginning at age 54. Took progesterone for 10 years beginning at age 54. Taking other hormone for 16 years. US Breast Limited LT Left limited breast ultrasound including focal area of concern, retroareolar and axilla demonstrates a 1.1 x 0.4 x 0.7cm hypoechoic lesion at 2 o'clock, smaller than prior, prior size 1.4 x 0.5 x 1.4cm, likely scar and a 1.0 x 0.5 x 1.1cm hypoechoic lesion at 2 o'clock, avascular, probable scar. These results were verbally communicated with the patient and result sheet given to the patient on 07/26/19. ASSESSMENT: Probably benign, BI-RAD 3 RECOMMENDATION: Ultrasound of the left breast in 6 months.
== END | disposition home or self-care (01) ==
LOC: RADMAMWWP 10:21
PROVIDERS: ATTEND Surgery
DX: R92.8 Other abnormal and inconclusive findings on diagnostic imaging of breast (principal); Z85.3 Personal history of malignant neoplasm of breast
CPT/HCPCS: 77065; 76642; G0279; 77061

== ENCOUNTER → 2019-08-05 | Outpatient (CLI) | payer MEDICARE ==
[2019-08-05 13:11] VITALS: BP 99/65; PULSE 75; RESP 18; TEMP 97.8
--- NOTE | 2019-08-05 14:28 | P.PN ---
Subjective Progress Note Date: 08/05/19 Principal diagnosis: Stage IA left breast cancer Heather is an 83 year old white female with a diagnosis of a Stage IA left breast cancer about 8 years ago. She was treated with a lumpectomy and radiation therapy. In 2017 she was noted to have a radiographic abnormality in the left breast in attempted ultrasound-guided core biopsy was canceled secondary to vascularity in the vicinity of the lesion. She subsequently underwent open biopsy and pathology was benign. The patient was noted a fat necrosis and fibrosis. The patient then developed some drainage from the area and and an open wound. She was treated in the wound clinic and this is healed at the present time. She had a wound VAC as well as hyperbaric oxygen treatment. Her last mammogram was performed and 3919 this was only of the left breast. This revealed extensive postoperative/therapy changes. And it was recommended she have an ultrasound performed. Ultrasound revealed a 1.1 x 0.7 cm hypoechoic lesion at 2:00 smaller than prior size felt to be scar and a 1 x 1.1 cm lesion which was avascular 2:00 as well felt to be scar. This is felt to be probably benign BIRADS 3 and repeat ultrasound of the left breast in 6 months was recommended. She had a right breast mammogram performed in April 2019 and this was benign BIRADS 2. The patient at this time does complain of some mild nodularity in the lateral aspect of her left breast. It has been present for approximately a year. It has not changed recently. On her last visit there was concern that she had a left cervical lymph node and she was scheduled for biopsy which was done on [id number]. This revealed benign fibrous tissue and skeletal muscle nondiagnostic of a lymph node or neoplasia. The patient had a CAT scan performed of the neck on 1719 which revealed normal soft tissue in the necksuspicious abnormality to account for next swelling. Family history: Father: Liver cancer Sister: Bilateral breast cancer Bladder: Multiple myeloma A few: Cancer of the larynx Maternal cousins: Brain cancer, pancreatic cancer Patient: Bladder cancer, breast cancer Hormonal history: Menarche: 14 G0 Menopause: Unsure of age Procedure control pills: Negative Hormones: 15 years Surgical history: Left breast lumpectomy Surgery for bladder cancer Skin lesions removed Medical history: Celiac disease Peripheral sensory polyneuritis Review of systems: HEENT: Blurred vision Lungs: Negative Heart: Negative GI: Celiac disease : Bladder cancer Musculoskeletal: Back pain Integument: Left breast wound healed Neurologic: Negative Endocrine: Fatigue Hematologic: Negative ALLERGIES: As per HPI Objective - Vital Signs Vital signs: Vital Signs Temp 97.8 F 08/05/19 13:06 Pulse 75 08/05/19 13:06 Resp 18 08/05/19 13:06 BP 99/65 08/05/19 13:06 Pulse Ox 95 08/05/19 13:06 Intake & Output 08/04/19 08/05/19 08/05/19 18:59 06:59 18:59 Weight 81.647 kg - Exam BMI 35.2 - Constitutional General appearance: Present: obese - EENT Eyes: Present: EOMI ENT: Present: hearing grossly normal - Neck Neck: Present: normal ROM - Respiratory Respiratory: bilateral: CTA - Cardiovascular Rhythm: regular Heart sounds: normal: S1, S2 - Gastrointestinal General gastrointestinal: Present: normal bowel sounds, soft - Integumentary Integumentary Comment(s): normal turgor - Musculoskeletal Musculoskeletal: Present: gait normal - Psychiatric Psychiatric: Present: A&O x's 3, appropriate affect, intact judgment & insight - Additional findings Additional findings: breast exam: BRA 42B INSPECTION: Changes in the left breast related to prior lumpectomy/wound infection nipple was retracted No changes of concern in the right breast Palpation: Right breast: Multi-positional exam no dominant masses or nodules of concern Right axilla: No adenopathy of concern Left breast: Marked changes from prior lumpectomy scar tissue present some scarring in the lateral aspect of the breast Left axilla: No adenopathy of concern Assessment and Plan Assessment: Impression/plan: 1. Left breast deformity related to prior lumpectomy and radiation therapy after which she developed a wound infection/this has since resolved 2. Increased fullness in the lateral aspect of the left breast recommend ultrasound at the site 3. Right breast fibrocystic changes no discrete dominant masses or nodules of concern 4. Resolved cervical adenopathy 5. Follow up after ultrasound of the left breast Cc: Dr. Alberto encounter 30 minutes, > 50% of time in planning and counselling Time with Patient: Less than 30
== END | disposition home or self-care (01) ==
LOC: WWCWWP 12:59
PROVIDERS: ATTEND Surgery
DX: Z53.9 Procedure and treatment not carried out, unspecified reason (principal)

== ENCOUNTER → 2020-02-10 | Outpatient (CLI) | payer MEDICARE ==
--- NOTE | 2020-02-11 08:55 | MM ---
Reason for exam: additional evaluation requested from prior study. Last mammogram was performed 6 months ago. History: Patient is postmenopausal, has history of bilateral breast cancer at age 77, has history of other cancer at age 76, and is nulliparous. Family history of premenopausal breast cancer in sister at age 43. Benign US breast localization LT, January 27, 2018. US discontinued breast bx LT of the left breast, January 14, 2018. Benign US breast aspiration single LT of the left breast, August 12, 2016. Benign US breast needle core LT of the left breast, August 12, 2016. Malignant left breast needle localization of both breasts, March 09, 2013. Malignant left mammotome panel of the left breast, February 23, 2013. Benign cyst aspiration of the left breast, 1999. Took estrogen for 10 years beginning at age 54. Took progesterone for 10 years beginning at age 54. Taking other hormone for 16 years. Physical Findings: Nurse did not find any significant physical abnormalities on exam. MG 3D Diag Mammo W/Cad TIERRA Bilateral CC and MLO view(s) were taken. Prior study comparison: July 26, 2019, left breast MG 3d diag mammo w/cad LT. May 05, 2019, right breast MG 3d diag mammo w/cad RT. Finding #1: There is stable, marked architectural distortion in the left breast consistent with known lumpectomy and post treatment changes. Finding #2: There are typically benign vascular calcifications in the right breast. These results were verbally communicated with the patient and result sheet given to the patient on 02/10/20. ASSESSMENT: Benign, BI-RAD 2 RECOMMENDATION: Follow-up diagnostic mammogram of both breasts in 1 year.
--- NOTE | 2020-02-11 08:58 | USB ---
Reason for exam: follow-up at short interval from prior study. History: Patient is postmenopausal, has history of bilateral breast cancer at age 77, has history of other cancer at age 76, and is nulliparous. Family history of premenopausal breast cancer in sister at age 43. Benign US breast localization LT, January 27, 2018. US discontinued breast bx LT of the left breast, January 14, 2018. Benign US breast aspiration single LT of the left breast, August 12, 2016. Benign US breast needle core LT of the left breast, August 12, 2016. Malignant left breast needle localization of both breasts, March 09, 2013. Malignant left mammotome panel of the left breast, February 23, 2013. Benign cyst aspiration of the left breast, 1999. Took estrogen for 10 years beginning at age 54. Took progesterone for 10 years beginning at age 54. Taking other hormone for 16 years. US Breast Limited LT Technologist: Kiley Sauceda Left limited breast ultrasound including focal area of concern, retroareolar and axilla demonstrates a 0.6 x 1.0 x 0.4cm oval, cystic lesion at 9 o'clock, a 1.3 x 1.5 x 0.4cm lesion at 2 o'clock and a 1.2 x 1.0 x 0.3cm oval lesion at 2 o'clock, stable from prior. Suboptimal due to marked deformity. These results were verbally communicated with the patient and result sheet given to the patient on 02/10/20. ASSESSMENT: Benign, BI-RAD 2 RECOMMENDATION: Follow-up diagnostic mammogram of both breasts in 1 year.
== END | disposition home or self-care (01) ==
LOC: RADMAMWWP 13:46
PROVIDERS: ATTEND Surgery
DX: Z08 Encounter for follow-up examination after completed treatment for malignant neoplasm (principal); Z85.3 Personal history of malignant neoplasm of breast
CPT/HCPCS: 77066; 76642; G0279; 77062

== ENCOUNTER → 2020-02-17 | Outpatient (CLI) | payer MEDICARE ==
[2020-02-17 14:06] VITALS: BP 127/59; PULSE 68; RESP 16; TEMP 98
--- NOTE | 2020-02-17 14:16 | P.PN ---
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 She was treated with a lumpectomy and radiation therapy. In 2018 she was noted to have a radiographic abnormality in the left breast in attempted ultrasound-guided core biopsy was canceled secondary to vascularity in the vicinity of the lesion. She subsequently underwent open biopsy and pathology was benign. The patient was noted a fat necrosis and fibrosis. The patient then developed some drainage from the area and and an open wound. She was treated in the wound clinic and this is healed at the present time. She had a wound VAC as well as hyperbaric oxygen treatment. A mammogram of the left breast was done on 3920 this was only of the left breast. This revealed extensive postoperative/therapy changes. And it was recommended she have an ultrasound performed. Ultrasound revealed a 1.1 x 0.7 cm hypoechoic lesion at 2:00 smaller than prior size felt to be scar and a 1 x 1.1 cm lesion which was avascular 2:00 as well felt to be scar. This is felt to be probably benign BIRADS 3 and repeat ultrasound of the left breast in 6 months was recommended. She had a right breast mammogram performed in April 2019 and this was benign BIRADS 2. This was not performed. She has subsequently had a bilateral mammogram performed on 257 420. Bilateral mammogram was felt to be benign BIRADS 2 and a follow-up mammogram of both breasts in 1 year was recommended. She additionally underwent a left breast ultrasound this was also felt to be benign BIRADS 2 and follow-up mammogram in 1 year recommended. On the ultrasound is 0.6 x 1 cm cystic lesion at 9:00 and a 1.3 x 1.5 cm lesion at 2:00 and 1.2 x 1 cm lesion at 2:00 stable from prior were noted. This was felt to be stable. He does not complain of any lumps masses or nodules in her breast at this time. On a prior visit there was concern that she had a left cervical lymph node and she was scheduled for biopsy which was done on [id number]. This revealed benign fibrous tissue and skeletal muscle nondiagnostic of a lymph node or neoplasia. The patient had a CAT scan performed of the neck on 1720 which revealed normal soft tissue in the neck no suspicious abnormality to account for next swelling. Patient an 1020 213 had left breast lumpectomy sentinel node biopsy Patient completed radiation therapy and 2714 Patient treated with a limited access completed 5 years of therapy in September 2018 Family history: Father: Liver cancer Sister: Bilateral breast cancer Bladder: Multiple myeloma A few: Cancer of the larynx Maternal cousins: Brain cancer, pancreatic cancer Patient: Bladder cancer, breast cancer Hormonal history: Menarche: 14 G0 Menopause: Unsure of age Procedure control pills: Negative Hormones: 15 years Surgical history: Left breast lumpectomy Surgery for bladder cancer Skin lesions removed Medical history: Celiac disease Peripheral sensory polyneuritis Review of systems: HEENT: Blurred vision Lungs: Negative Heart: Negative GI: Celiac disease : Bladder cancer Musculoskeletal: Back pain Integument: Left breast wound healed Neurologic: Negative Endocrine: Fatigue Hematologic: Negative ALLERGIES: As per HPI Objective - Vital Signs Vital signs: Intake & Output 02/16/20 02/17/20 02/17/20 18:59 06:59 18:59 Weight 86.183 kg - Exam BMI 37.1 - Constitutional General appearance: Present: obese - EENT Eyes: Present: EOMI ENT: Present: hearing grossly normal - Neck Neck: Present: normal ROM - Respiratory Respiratory: bilateral: CTA - Cardiovascular Rhythm: regular Heart sounds: normal: S1, S2 - Gastrointestinal General gastrointestinal: Present: normal bowel sounds, soft - Integumentary Integumentary: Present: normal turgor - Musculoskeletal Musculoskeletal: Present: gait normal - Psychiatric Psychiatric: Present: A&O x's 3, appropriate affect, intact judgment & insight - Additional findings Additional findings: breast exam: Inspection: Marked asymmetry of the left breast Palpation: Right breast: multiple positional exam no dominant masses or nodules of concern, fibrocystic changes Right axilla: No adenopathy of concern Left breast: Marked distortion secondary to lumpectomy and radiation treatment on examination scar tissue but no discrete mass of concern Left axilla: No adenopathy of concern Assessment and Plan Assessment: Impression: 1. Patient status post left breast lumpectomy and radiation therapy for stage IA breast cancer 2012, no evidence of recurrent disease 2. Marked scarring and distortion of the left breast related to lumpectomy and radiation therapy 3. Fibrocystic changes right breast no discrete lesions of concern 4. No evidence of recurrent cancer 5. No evidence of adenopathy of concern 6. Patient has completed 5 years of arimidex and radiation therapy Plan: 1. Follow-up in one year for close surveillance 2. Bilateral mammogram in 1 year 3. Follow sooner if any questions or concerns 4. Continue to follow with Dr. [facility] CC: Dr. Alberto The patient regarding the deformity of the left breast. We have discussed the possibility of a mastectomy for easier close fitting however at this time she does not wish any surgical intervention. We will continue to follow closely. encounter 15 minutes, > 50% of tiem in planning and counselling
== END | disposition home or self-care (01) ==
LOC: WWCWWP 13:43
PROVIDERS: ATTEND Surgery
DX: Z53.9 Procedure and treatment not carried out, unspecified reason (principal)

== ENCOUNTER 2020-10-03 14:11 | Inpatient (IN) | payer MEDICARE ==
[2020-10-03] MEDS ORDERED: ACETAMINOPHEN TAB 325 MG TAB PO STA (14:46)
--- NOTE | 2020-10-03 14:50 | ED ---
Fall HPI - General Chief Complaint: Fall Stated Complaint: fall Time Seen by Provider: 10/03/20 14:32 Source: patient, EMS Mode of arrival: EMS - History of Present Illness Initial Comments: Patient is an 85-year-old female with history of hypertension, presenting to the emergency department via EMS from her home after having increase in her low back and right hip pain. Patient states she recently returned from a trip to [place], and feels like she might have aggravated her low back pain. Patient states she was able to walk to the airport and get her luggage without diffi culty. She has been back home for 2 days now and states her low back pain is worsening. She describes it as mostly in her right low back but with some radiation towards her left side as well. States it also comes down into her right hip and mild radiation of pain into her right ankle. She states yesterday she went to try to get him back into bed but tripped over some clothing in her room and fell down. Patient states she fell into a pile of clothes, she did not hurt anything during the fall. She states she laid there for about an hour and then was able to get up back in the bed. She did not hit her head. She did not lose consciousness. She states she is here today because her back pain seems to be worsening. She denies any lower back or hip surgeries. She denies any bowel or bladder incontinence. States she's been able to eat and drink as normal she takes her medications. She states she currently lives by herself over she's been in contact with her sister who has been helping her with her back pain. She states she has been trying to take aspirin for her pain and it sometimes helps but sometimes does not. She has no further complaints at this time. - Related Data Home Medications Medication Instructions Recorded Confirmed Lansoprazole 30 mg PO QAM 01/11/15 10/03/20 Levothyroxine Sodium [Synthroid] 25 mcg PO DAILY 01/11/15 10/03/20 Atorvastatin [Lipitor] 20 mg PO HS 08/18/17 10/03/20 Lisinopril-Hctz 20-25 mg 1 tab PO DAILY 08/31/18 10/03/20 [Zestoretic 20-25] Metoprolol Succinate (ER) [Toprol 50 mg PO DAILY 08/31/18 10/03/20 Xl] rOPINIRole HCL [Requip] 1 mg PO HS 04/30/19 10/03/20 Aspirin EC [Ecotrin] 325 mg PO BID PRN 10/03/20 10/03/20 Multivitamins, Thera [Multivitamin 1 tab PO DAILY 10/03/20 10/03/20 (formulary)] Allergies Allergy/AdvReac Type Severity Reaction Status Date / Time bee pollen Allergy Rash/Hives Verified 10/03/20 15:56 gluten Allergy Nausea & Verified 10/03/20 15:56 Vomiting & Diarrhea Penicillins Allergy Rash/Hives Verified 10/03/20 15:56 Sulfa (Sulfonamide Allergy Rash/Hives Verified 10/03/20 15:56 Antibiotics) Review of Systems ROS Statement: Those systems with pertinent positive or pertinent negative responses have been documented in the HPI. ROS Other: All systems not noted in ROS Statement are negative. Past Medical History Past Medical History: Cancer, GERD/Reflux, Hyperlipidemia, Hypertension, Thyroid Disorder Additional Past Medical History / Comment(s): HX BREAST CA, BLADDER CA, LEFT LEG BASAL CELL, CELIAC DX, restless leg syndrome, previous breast wound with treatment in wound care center by Dr Grigsby History of Any Multi-Drug Resistant Organisms: None Reported Past Surgical History: Adenoidectomy, Bladder Surgery, Breast Surgery, Tonsillectomy Additional Past Surgical History / Comment(s): COLONOSCOPIES, BENIGN LUMP REMOVED FROM BACK, LEFT BREAST LUMPECTOMY, 2 Surgeries FOR BLADDER CA, LEFT LEG BASAL CELL CA REMOVED, blepharoplasty Past Anesthesia/Blood Transfusion Reactions: Postoperative Nausea & Vomiting (PONV) Past Psychological History: Anxiety, Panic Disorder Smoking Status: Never smoker Past Alcohol Use History: None Reported Past Drug Use History: None Reported - Past Family History Father Family Medical History: Cancer Brother(s) Family Medical History: Cancer Sister(s) Family Medical History: Cancer Additional Family Medical History / Comment(s): BREAST General Exam - General Exam Comments Initial Comments: GENERAL: Patient is well-developed and well-nourished. Patient is nontoxic and in no acute distress. HEAD: Atraumatic, normocephalic. EYES: Pupils equal round and reactive to light, extraocular movements intact, sclera anicteric, conjunctiva are normal. Eyelids were unremarkable. ENT: TMs normal, nares patent, oropharynx clear without exudates. Moist mucous membranes. NECK: Normal range of motion, supple without lymphadenopathy or JVD. LUNGS: Unlabored respirations. Breath sounds clear to auscultation bilaterally and equal. No wheezes rales or rhonchi. HEART: Regular rate and rhythm without murmurs, rubs or gallops. ABDOMEN: Soft, nontender, normoactive bowel sounds. No guarding, no rebound. No masses appreciated. : Deferred MUSCULOSKELETAL: Mild pain with palpation of the right paraspinals and left paraspinals, she has some mild pain with palpation of the right lateral hip, she does have full range of motion of her right hip, right knee and right ankle. There is no swelling, no erythema. She has normal sensation bilateral lower legs. She is neurovascular intact bilateral lower legs. No clubbing or cyanosis. NEUROLOGICAL: Patient is alert and oriented x 3. Motor and sensory are also intact. Cranial nerves II through XII grossly intact. Symmetrical smile. Normal speech. Unable to ambulate secondary to pain. PSYCH: Normal mood, normal affect. SKIN: Warm, Dry, normal turgor, no rashes or lesions noted. Limitations: no limitations Course Vital Signs 10/03/20 10/03/20 10/03/20 14:12 16:49 19:00 Temperature 97.8 F Pulse Rate 93 67 65 Pulse Rate [ Left] Respiratory 18 18 18 Rate Blood Pressure 135/68 134/70 125/79 Blood Pressure [Left Arm] O2 Sat by Pulse 98 98 97 Oximetry 10/03/20 20:00 Temperature 97.5 F L Pulse Rate 58 L Pulse Rate [ 91 Left] Respiratory 16 Rate Blood Pressure 140/64 Blood Pressure 160/65 [Left Arm] O2 Sat by Pulse 96 Oximetry Medical Decision Making - Medical Decision Making Patient is an 85-year-old female here for low back pain with radiation into her right hip. She's been having this pain on and off for weeks now, it's increase in the past couple days. She did have a minor fall yesterday in her room but she landed on a pile of clothes, no pitting additional pain associated with this fall. She got hit her head. No loss of conscious. Her exam reveals pain in her lumbar spine, no other acute findings. Hip and pelvic x-ray show no acute abnormalities. Lumbar x-ray reveals osteoporotic compression fractures. End plate of T12, osteopenia, degenerative disc disease. We did attempt to ambulate with the patient however she is in too much pain and cannot ambulate. Patient lives by herself, I do not feel like she is safe to go home. Patient will be admitted, possible placement. Patient accepted by Dr. Jackson. Case discussed with Dr. Brumfield. - Lab Data Result diagrams: 10/03/20 18:05 10/04/20 06:59 Disposition Clinical Impression: Lumbar compression fracture, Unable to ambulate Disposition: ADMITTED IP TO THIS [facility] Condition: Stable Is patient prescribed a controlled substance at d/c from ED?: No Decision Date: 10/03/20 Decision Time: 16:40
--- NOTE | 2020-10-03 15:28 | XR ---
EXAMINATION TYPE: XR Hip RT and AP Pelvis DATE OF EXAM: 10/03/2020 COMPARISON: NONE HISTORY: Pain after fall injury. TECHNIQUE: A single AP view of the pelvis is obtained. Two views of the right hip are obtained. FINDINGS: Osseous structures are demineralized which is noted to lower radiographic sensitivity. The re is no acute fracture/dislocation evident in the pelvis. The pubic symphysis is intact. Sacroiliac joints shows superior narrowing and sclerosis bilaterally. Mild thoracic axial joint space loss of both hips. Scattered bilateral pelvic phleboliths. Suspect small arterial vascular calcification in t he overlying pelvis. Two views of right hip show no acute fracture or dislocation. No focal lytic or sclerotic lesion see n in the proximal right femur. The overlying soft tissue is unremarkable. IMPRESSION: There is no acute fracture or dislocation in the pelvis or right hip.
--- NOTE | 2020-10-03 15:29 | XR ---
Lumbar spine HISTORY: Pain, trauma one day prior 3 views of the lumbar spine correlated prior lumbar spine 03/04/2013 Bone mineralization is reduced. Lumbar vertebral bodies show preserved height. There is multilevel sp ondylosis. Loss of disc height again noted L3-4 with associated vacuum phenomenon. Sclerosis present in the posterior elements of the lower lumbar spine. Superior endplate of T12 shows interval depressi on, loss of height of approximately 20%. No significant retropulsion. IMPRESSION: Osteoporotic compression fracture superior endplate T12. Osteopenia. Degenerative disc di sease, facet arthropathy.
[2020-10-03] MEDS ORDERED: ONDANSETRON 4 MG/2 ML VIAL IVP PRN (16:40)
[2020-10-03] MEDS ORDERED: ACETAMINOPHEN TAB 325 MG TAB PO PRN (16:40)
[2020-10-03] MEDS ORDERED: NALOXONE 0.4 MG/ML 1 ML VIAL IV PRN (16:40)
[2020-10-03] MEDS ORDERED: traMADol 50 MG TAB PO PRN (16:40)
--- NOTE | 2020-10-03 16:45 | CT ---
EXAMINATION TYPE: CT lumbar spine wo con DATE OF EXAM: 10/03/2020 4:30 PM COMPARISON: Same day radiographs. HISTORY: Low back and right leg pain. CT DLP: 970 mGycm Technique: Automated exposure control for dose reduction was used. Unenhanced CT of the lumbar spine was performed. Bone and soft tissue window settings are submitted as well as coronal and sagittal reconstructions. Findings: There are subacute/chronic appearing mild T12 and L5 compression fractures. There are also subtle L3 and L4 right transverse process fractures. There is severe disc height narrowing at L3-L4 with associ ated moderate foraminal stenosis. There is mild to moderate facet arthropathy in the lumbar spine. Th ere is resultant central canal stenosis at L3-L4 and L4-L5. There is no significant paraspinal soft tissue abnormality. There is no significant spondylolisthesis . IMPRESSION: Subacute/chronic appearing mild T12 and L5 compression fractures. Also subtle L3 and L4 right transverse process fractures. Degenerative changes in the lower lumbar spine with central canal stenosis at L3-L4 and L4-L5.
[2020-10-03] MEDS ORDERED: KETOROLAC 15 MG/ML 1 ML VIAL IVP PRN (17:37)
[2020-10-03] MEDS ORDERED: DENOSUMAB 60 MG/ML 1 ML SYRINGE SQ SCH (17:45)
--- NOTE | 2020-10-03 17:45 | P.HPIM ---
History of Present Illness 85-year-old female is being admitted because of lumbar compression fractures in patient is unable to ambulate or even get up or sit up by herself. Patient lives by herself at home. Patient doesn't have any kids but does have a sister who lives close by. Patient has chronic low back pain had a recent trip from [place] which she believes may have aggravated her back pain her back pain sharp in nature moderate to severe radiating to back of the the right buttock going up to the ankle area which is electric shocklike in consult and needles like sensation. Patient had a CT of the lumbar spine which showed compression fractures subacute to chronic on T12 and L5 and also is some partial fractures at 2 and L3 levels. denied any loss of bowel or bladder incontinence. Patient denied any fever chills. Review of Systems REVIEW OF SYSTEMS: CONSTITUTIONAL: No fever, no malaise, no fatigue. HEENT: No recent visual problems or hearing problems. Denied any sore throat. CARDIOVASCULAR: No chest pain, orthopnea, PND, no palpitations, no syncope. PULMONARY: No shortness of breath, no cough, no hemoptysis. GASTROINTESTINAL: No diarrhea, no nausea, no vomiting, no abdominal pain. NEUROLOGICAL: No headaches, no weakness, no numbness. HEMATOLOGICAL: Denies any bleeding or petechiae. GENITOURINARY: Denies any burning micturition, frequency, or urgency. MUSCULOSKELETAL/RHEUMATOLOGICAL: Pain as mentioned above ENDOCRINE: Denies any polyuria or polydipsia. The rest of the 14-point review of systems is negative. Past Medical History Past Medical History: Cancer, GERD/Reflux, Hyperlipidemia, Hypertension, Thyroid Disorder Additional Past Medical History / Comment(s): HX BREAST CA, BLADDER CA, LEFT LEG BASAL CELL, CELIAC DX, restless leg syndrome, previous breast wound with treatment in wound care center by Dr Grigsby History of Any Multi-Drug Resistant Organisms: None Reported Past Surgical History: Adenoidectomy, Bladder Surgery, Breast Surgery, Tonsillectomy Additional Past Surgical History / Comment(s): COLONOSCOPIES, BENIGN LUMP REMOVED FROM BACK, LEFT BREAST LUMPECTOMY, 2 Surgeries FOR BLADDER CA, LEFT LEG BASAL CELL CA REMOVED, blepharoplasty Past Anesthesia/Blood Transfusion Reactions: Postoperative Nausea & Vomiting (PONV) Past Psychological History: Anxiety, Panic Disorder Smoking Status: Never smoker Past Alcohol Use History: None Reported Past Drug Use History: None Reported - Past Family History Father Family Medical History: Cancer Brother(s) Family Medical History: Cancer Sister(s) Family Medical History: Cancer Additional Family Medical History / Comment(s): BREAST Medications and Allergies Home Medications Medication Instructions Recorded Confirmed Type Lansoprazole 30 mg PO QAM 01/11/15 10/03/20 History Levothyroxine Sodium [Synthroid] 25 mcg PO DAILY 01/11/15 10/03/20 History Atorvastatin [Lipitor] 20 mg PO HS 08/18/17 10/03/20 History Lisinopril-Hctz 20-25 mg 1 tab PO DAILY 08/31/18 10/03/20 History [Zestoretic 20-25] Metoprolol Succinate (ER) [Toprol 50 mg PO DAILY 08/31/18 10/03/20 History Xl] rOPINIRole HCL [Requip] 1 mg PO HS 04/30/19 10/03/20 History Aspirin EC [Ecotrin] 325 mg PO BID PRN 10/03/20 10/03/20 History Denosumab [Prolia] 60 mg SQ Q180D 10/03/20 10/03/20 History Multivitamins, Thera [Multivitamin 1 tab PO DAILY 10/03/20 10/03/20 History (formulary)] Allergies Allergy/AdvReac Type Severity Reaction Status Date / Time bee pollen Allergy Rash/Hives Verified 10/03/20 15:56 gluten Allergy Nausea & Verified 10/03/20 15:56 Vomiting & Diarrhea Penicillins Allergy Rash/Hives Verified 10/03/20 15:56 Sulfa (Sulfonamide Allergy Rash/Hives Verified 10/03/20 15:56 Antibiotics) Physical Exam Vitals: Vital Signs Temp Pulse Resp BP Pulse Ox 10/03/20 16:49 67 18 134/70 98 10/03/20 14:12 97.8 F 93 18 135/68 98 Intake and Output 10/03/20 10/03/20 10/03/20 06:59 14:59 22:59 Other: Weight 72.575 kg PHYSICAL EXAMINATION: GENERAL: The patient is alert and oriented x3, not in any acute distress. Well developed, well nourished. HEENT: Pupils are round and equally reacting to light. EOMI. No scleral icterus. No conjunctival pallor. Normocephalic, atraumatic. No pharyngeal erythema. No thyromegaly. CARDIOVASCULAR: S1 and S2 present. No murmurs, rubs, or gallops. PULMONARY: Chest is clear to auscultation, no wheezing or crackles. ABDOMEN: Soft, nontender, nondistended, normoactive bowel sounds. No palpable organomegaly. MUSCULOSKELETAL: Gait because of severe back pain EXTREMITIES: No cyanosis, clubbing, or pedal edema. NEUROLOGICAL: Gross neurological examination did not reveal any focal deficits. SKIN: No rashes. Assessment and Plan Plan: -Chronic low back pain with the compression fractures: Patient the functionality is poor because of these compression fractures and cannot take care of herself patient will need placement in subacute rehabilitation most probably patient will be started on anti-intermittent medications physical therapy will be consulted and occupational therapy will be consulted. We'll order TLSO brace -Hypertension: Essentially patient blood pressure well controlled -hyperlipidemia -Hyperthyroidism -Gastroesophageal reflux disease -Anxiety disorder -DVT prophylaxis with Lovenox For above-mentioned chronic medical problems patient will be resumed on appropriate home medications although may need to be changed once we get the labs which are not available at this time will order basic metabolic profile and a CBC
[2020-10-03 18:18] LABS: Basophils # (A) 0.1 k/uL (0-0.2); Basophils % (A) 1 %; Eosinophils # (A) 0.3 k/uL (0-0.7); Eosinophils % (A) 4 %; HCT 42.4 % (34.0-46.0); HGB 13.9 gm/dL (11.4-16.0); Lymphocytes # (A) 1.4 k/uL (1.0-4.8); Lymphocytes % (A) 20 %; MCH 30.9 pg (25.0-35.0); MCHC 32.8 g/dL (31.0-37.0); MCV 94.5 fL (80.0-100.0); Mean Platelet Volume 6.7; Monocytes # (A) 0.3 k/uL (0-1.0); Monocytes % (A) 4 %; Neutrophils # (A) 4.9 k/uL (1.3-7.7); Neutrophils % (A) 69 %; Platelet Count 284 k/uL (150-450); RBC 4.49 m/uL (3.80-5.40); WBC 7.2 k/uL (3.8-10.6)
[2020-10-03 18:26] LABS: African American GFR (CKD) 66 (>60 ml/min/1.73 sqM); Anion Gap 8 mmol/L; Blood Urea Nitrogen 22 mg/dL (7-17); Calcium 9.7 mg/dL (8.4-10.2); Carbon Dioxide 28 mmol/L (22-30); Chloride 106 mmol/L (98-107); Glucose 107 mg/dL (74-99); Non-African American GFR(CKD) 57 (>60 ml/min/1.73 sqM); Potassium 3.9 mmol/L (3.5-5.1); Sodium 142 mmol/L (137-145)
[2020-10-03] MEDS: ATORVASTATIN 20 MG TAB PO SCH (21:21)
[2020-10-04] MEDS: LEVOTHYROXINE 25 MCG TAB PO SCH (05:18)
[2020-10-04] MEDS: MULTIVITAMINS, THERA 1 EACH TAB PO SCH (08:20)
[2020-10-04] MEDS: PANTOPRAZOLE 40 MG TABLET PO SCH (08:20)
[2020-10-04] MEDS: METOPROLOL SUCCINATE (ER) 50 MG TAB.ER.24H PO SCH (08:20)
[2020-10-04] MEDS: ENOXAPARIN 40 MG/0.4 ML SYRINGE SQ SCH (08:20)
[2020-10-04] MEDS: LISINOPRIL-HCTZ 20-25 MG 1 EACH TAB PO SCH (08:20)
[2020-10-04] MEDS ORDERED: FAMOTIDINE 20 MG TAB PO SCH (09:00)
--- NOTE | 2020-10-04 15:02 | P.PN ---
Progress Note - Text Progress Note Date: 10/04/20 CT and XR images reviewed. T12 and L5 VCF evident. There is also severe spondylosis at L3-4 noted. We will obtain an MRI to eval due to some neurological complaints and discuss with her surgical intervention during this stay. Further recommendations pending full consult.
--- NOTE | 2020-10-04 15:08 | P.PN ---
Subjective Progress Note Date: 10/04/20 85-year-old female is being admitted because of lumbar compression fractures in patient is unable to ambulate or even get up or sit up by herself. Patient lives by herself at home. Patient doesn't have any kids but does have a sister who lives close by. Patient has chronic low back pain had a recent trip from [place] which she believes may have aggravated her back pain her back pain sharp in nature moderate to severe radiating to back of the the right buttock going up to the ankle area which is electric shocklike in nature and needle like sensation. Patient had a CT of the lumbar spine which showed compression fractures subacute to chronic on T12 and L5 and also is some partial fractures at 2 and L3 levels. Patient denied any loss of bowel or bladder incontinence. Patient denied any fever chills. 10/04/2020 Patient is seen and evaluated in follow-up currently awaiting to receive a TLSO brace she continues to be unable to get up and ambulate without extreme pain. Patient continues to state that it feels like lightening shocks down her leg. TLSO brace was ordered although is very uncomfortable for the patient causing worsening pain and continued immobility to move. Will consult orthopedics and appreciate input. Patient also states that she recently fell due to the pain and difficulty in ambulating. Review of systems: Constitutional: No reports of fatigue, fever, or chills Cardiovascular: No reports of chest pain or palpitations Respiratory: No reports of shortness of breath or cough GI: No reports of nausea, vomiting, or diarrhea : No reports of dysuria or retention Neurovascular: Reports generalized weakness All medications have been reviewed Objective - Vital Signs Vital signs: Vital Signs Temp 98.0 F 10/04/20 11:25 Pulse 62 10/04/20 11:25 Resp 16 10/04/20 11:25 BP 121/80 10/04/20 11:25 Pulse Ox 96 10/04/20 11:25 Intake & Output 10/03/20 10/04/20 10/04/20 18:59 06:59 18:59 Weight 72.575 kg Other: Voiding Method Bedside Commode # Voids 1 1 - Exam GENERAL: The patient is alert and oriented x3, not in any acute distress. Well developed, well nourished. HEENT: Pupils are round and equally reacting to light. EOMI. No scleral icterus. No conjunctival pallor. Normocephalic, atraumatic. No pharyngeal erythema. No thyromegaly. CARDIOVASCULAR: S1 and S2 present. No murmurs, rubs, or gallops. PULMONARY: Chest is clear to auscultation, no wheezing or crackles. ABDOMEN: Soft, nontender, nondistended, normoactive bowel sounds. No palpable organomegaly. MUSCULOSKELETAL: Gait because of severe back pain EXTREMITIES: No cyanosis, clubbing, or pedal edema. NEUROLOGICAL: Gross neurological examination did not reveal any focal deficits. SKIN: No rashes. - Labs CBC & Chem 7: 10/03/20 18:05 10/03/20 18:05 Labs: Abnormal Lab Results - Last 24 Hours (Table) 10/03/20 Range/Units 18:05 BUN 22 H (7-17) mg/dL Glucose 107 H (74-99) mg/dL Assessment and Plan Assessment: -Chronic low back pain with the compression fractures: Patient functionality is poor because of these compression fractures and cannot take care of herself patient will need placement in subacute rehabilitation most probably patient will be started on anti-inflammatory medications. TLSO brace was delivered although causing extreme pain and discomfort to the patient and will have right and follow-up as reevaluate and size the patient. PT/OT pending also consulted ortho for further recommendations -Hypertension: Essentially patient blood pressure well controlled -hyperlipidemia -Hyperthyroidism -Gastroesophageal reflux disease -Anxiety disorder -DVT prophylaxis with Lovenox Plan: Consulted orthopedics and appreciate recommendations. Most likely chronic compression fractures noted on x-rays and CT. TLSO brace was ordered although not fitting properly on the patient and will have writing follow up as reevaluate for possible complications. PT/OT evaluation pending as they were awaiting TLSO brace. She continues to have pain with mobility and extremely weak. Labs within normal limits. Case management and social work following and working on placement as patient has been accepted at [facility] although awaiting authorization and PT/OT therapy notes. Will continue to monitor closely.
--- NOTE | 2020-10-04 17:13 | P.CNOR ---
History of Present Illness - [facility] Consult date: 10/04/20 Requesting physician: Kiley Gibbs Consult reason: other (back pain, recent fall/ ct findings suggest compression fx) History of present illness: 85-year-old female presenting the hospital for the right-sided hip/leg pain radiating down the entire leg. Patient is unsure when this began. She says she was in [place] about a month ago with her sister and she says they did a lot of walking. She cannot remember a time where she had any trauma/fall should've caused this pain. She says she returned home and within the past week this pain is gotten much worse. She says the pain is worse when she gets up to begin to walk as well as while ambulating. She says it has gotten so bad to the point where she is not able to walk. She describes it as lightening-like shocks that go down her leg as she points to her lateral right leg. She also does mention some numbness and tingling at the bottom of her right foot. Patient denies any loss of bowel/bladder control. Patient denies any numbness or tingling in the region. Patient denies any previous history of orthopedic surgery. Patient does have a history of breast cancer 5-6 years ago she says for which she had a mastectomy. Patient denies any shortness of breath, fever, chest pain, nausea, vomiting, vision changes. Past Medical History Past Medical History: Cancer, GERD/Reflux, Hyperlipidemia, Hypertension, Thyroid Disorder Additional Past Medical History / Comment(s): HX BREAST CA, BLADDER CA, LEFT LEG BASAL CELL, CELIAC DX, restless leg syndrome, previous breast wound with treatment in wound care center by Dr Grigsby History of Any Multi-Drug Resistant Organisms: None Reported Past Surgical History: Adenoidectomy, Bladder Surgery, Breast Surgery, Tonsillectomy Additional Past Surgical History / Comment(s): COLONOSCOPIES, BENIGN LUMP REMOVED FROM BACK, LEFT BREAST LUMPECTOMY, 2 Surgeries FOR BLADDER CA, LEFT LEG BASAL CELL CA REMOVED, blepharoplasty Past Anesthesia/Blood Transfusion Reactions: Postoperative Nausea & Vomiting (PONV) Past Psychological History: Anxiety, Panic Disorder Smoking Status: Never smoker Past Alcohol Use History: None Reported Past Drug Use History: None Reported - Past Family History Father Family Medical History: Cancer Brother(s) Family Medical History: Cancer Sister(s) Family Medical History: Cancer Additional Family Medical History / Comment(s): BREAST Medications and Allergies Home Medications Medication Instructions Recorded Confirmed Type Lansoprazole 30 mg PO QAM 01/11/15 10/03/20 History Levothyroxine Sodium [Synthroid] 25 mcg PO DAILY 01/11/15 10/03/20 History Atorvastatin [Lipitor] 20 mg PO HS 08/18/17 10/03/20 History Lisinopril-Hctz 20-25 mg 1 tab PO DAILY 08/31/18 10/03/20 History [Zestoretic 20-25] Metoprolol Succinate (ER) [Toprol 50 mg PO DAILY 08/31/18 10/03/20 History Xl] rOPINIRole HCL [Requip] 1 mg PO HS 04/30/19 10/03/20 History Aspirin EC [Ecotrin] 325 mg PO BID PRN 10/03/20 10/03/20 History Multivitamins, Thera [Multivitamin 1 tab PO DAILY 10/03/20 10/03/20 History (formulary)] Allergies Allergy/AdvReac Type Severity Reaction Status Date / Time bee pollen Allergy Rash/Hives Verified 10/03/20 15:56 gluten Allergy Nausea & Verified 10/03/20 15:56 Vomiting & Diarrhea Penicillins Allergy Rash/Hives Verified 10/03/20 15:56 Sulfa (Sulfonamide Allergy Rash/Hives Verified 10/03/20 15:56 Antibiotics) Physical Examination Skin inspection: No evident open fractures/ulcers evident throughout exam. Negative for any visible areas erythema or lesions. Sensation: Sensation is intact, equal, symmetric throughout the lower extremities and upper extremities. Palpation: Spine is nontender to palpation throughout cervical, thoracic, lumbar regions. None tender to touch of the paravertebral muscles. Knees, ankles, feet are nontender to palpation throughout. Tenderness to palpation of the right lateral hip. Negative Homans bilaterally Range of motion: Upper extremities - full range of motion; lower extremities - full range of motion; patient able to elevate right leg without pain, but while lowering right leg to bed patient says she does feel pain in the right leg, laterally. This is also evident during right knee flexion. Motor: Upper extremities: Full strength 5 out of 5. Lower extremities: Full strength 5 out of 5 on dorsiflexion, plantar flexion, knee extension and flexion bilaterally; hip flexion extension 5/5 bilaterally Reflexes/tensioning signs: Clonus negative bilaterally upon dorsiflexing feet; negative Spurling's; negative Tarik's bilaterally. Patellar reflexes normal Neurovascular status: Radial pulses present, intact 2+. Dorsalis pedis pulse present, intact 2+. Cap refill < 3 seconds. Results - Labs Labs: Abnormal Lab Results - Last 24 Hours (Table) 10/03/20 Range/Units 18:05 BUN 22 H (7-17) mg/dL Glucose 107 H (74-99) mg/dL H & H 10/03/20 Range/Units 18:05 Hgb 13.9 (11.4-16.0) gm/dL Hct 42.4 (34.0-46.0) % Result Diagrams: 10/03/20 18:05 10/03/20 18:05 Assessment and Plan Assessment: 1. Chronic back pain; Right leg pain 2. History of breast cancer Plan: 1. Chronic back pain/right leg pain - x-ray lumbar spine performed as well as CT of lumbar spine - compression fractures evident at T12 and L5. MRI of lumbar spine has been ordered for further evaluation. TLSO brace has been ordered. We'll continue to follow patient while in hospital. We will further evaluate p ending MRI results of lumbar spine. Continue conservative measures at this time 2. Appreciate medical management 3. Pain management - stable at this time. Continue Toradol 4. GI prophylaxis/DVT prophylaxis - continue Lovenox 5. PT/OT - up out of bed with walker for assistance 6. Appreciate consult Time with Patient: Less than 30
[2020-10-04 19:29] LABS: African American GFR (CKD) 67.6 (60.0-200.0); Anion Gap 9.9 mmol/L (4.00-12.00); BUN/Creat Ratio 22.22 Ratio (12.00-20.00); Calcium 9.4 mg/dL (8.7-10.3); Carbon Dioxide 27.1 mmol/L (21.6-31.8); Non-African American GFR(CKD) 58.3 (60.0-200.0); Potassium 3.6 mmol/L (3.5-5.5)
[2020-10-04] MEDS: ATORVASTATIN 20 MG TAB PO SCH (19:54)
[2020-10-05] MEDS: LEVOTHYROXINE 25 MCG TAB PO SCH (05:16)
[2020-10-05] MEDS: METOPROLOL SUCCINATE (ER) 50 MG TAB.ER.24H PO SCH (07:51)
[2020-10-05] MEDS: PANTOPRAZOLE 40 MG TABLET PO SCH (07:51)
[2020-10-05] MEDS: LISINOPRIL-HCTZ 20-25 MG 1 EACH TAB PO SCH (07:52)
[2020-10-05] MEDS: ENOXAPARIN 40 MG/0.4 ML SYRINGE SQ SCH (07:53)
[2020-10-05] MEDS: MULTIVITAMINS, THERA 1 EACH TAB PO SCH (07:53)
--- NOTE | 2020-10-05 09:44 | MR ---
EXAMINATION TYPE: MR lumbar spine wo con DATE OF EXAM: 10/05/2020 COMPARISON: CT lumbar spine 10/03/2020 HISTORY: Back pain, weakness, fracture and neurological symptoms TECHNIQUE: Multiplanar, multisequence images of the lumbar spine were acquired. L1-L2: Posterior extension endplate disc complex causes mild anterior mass effect on the thecal sac. There is some mild facet arthropathy, no significant foraminal encroachment or spinal stenosis. L2-L3: Posterior broad-based disc bulge causes minimal anterior mass effect on the thecal sac, no sig nificant foraminal encroachment or spinal stenosis. L3-L4: Spinal stenosis is moderate due to posterior broad-based disc bulge. Circumferential extension endplate disc complex encroaches upon the neural foramina. There is some facet arthropathy change. L4-L5: Posterior broad-based disc bulge causes anterior mass effect on the thecal sac, there is mild central canal stenosis. Circumferential extension endplate disc complex encroaches on the inferior as pect of the neural foramen on the right. There is facet arthropathy change with hypertrophy ligamentu m flavum. L5-S1: There is a posterior disc bulge which is mild, no significant spinal stenosis, circumferential extension endplate disc complex encroaches upon the left neural foramen. Lumbar segments are remarkable for intermediate signal of the superior endplate of L5, L2, T12, infer ior endplate of L1 and T1-weighted images, somewhat more increased on T2-weighted sequences suggestin g subacute osteoporotic compression fractures. There is multilevel spondylosis, endplate discogenic m arrow signal changes are present. Loss of disc height signal is greatest at L3-4. No paraspinal chris s are identified. Conus medullaris has a normal appearance. Small hiatal hernia suspected. IMPRESSION: Multilevel osteoporotic compression fractures. Degenerative disc disease and facet arthropathy, multi level foraminal encroachment.
[2020-10-05] MEDS ORDERED: DEXAMETHASONE SOD PHOSPHATE 10 MG/ML 1 ML VIAL IV STA (10:03)
[2020-10-05] MEDS ORDERED: DEXAMETHASONE SOD PHOSPHATE 4 MG/ML 1 ML VIAL IV PRN (10:03)
[2020-10-05] MEDS ORDERED: CYCLOBENZAPRINE 5 MG TAB PO PRN (10:04)
[2020-10-05] MEDS: GABAPENTIN 300 MG CAP PO SCH ×3 (11:15→20:09)
[2020-10-05 12:25] LABS: African American GFR (CKD) 67.6 (60.0-200.0); BUN/Creat Ratio 24.44 Ratio (12.00-20.00); Non-African American GFR(CKD) 58.3 (60.0-200.0); Potassium 3.4 mmol/L (3.5-5.5)
[2020-10-05] MEDS ORDERED: POTASSIUM CHLORIDE ER 20 MEQ TAB.ER PO STA (12:48)
--- NOTE | 2020-10-05 12:56 | P.DS ---
Providers Date of admission: 10/03/20 16:20 Expected date of discharge: 10/05/20 Attending physician: Ricky Yu Consults: 10/04/20 14:52 Consult Physician Stat Consulting Provider: Shankar Alcantara Consult Reason/Comments: back pain, recent fall/ ct findings suggest compression fx Do you want consulting provider notified?: Yes 10/05/20 10:06 Consult Physician Routine Consulting Provider: Yennifer Gallagher Consult Reason/Comments: L3-4 GIUSEPPE Do you want consulting provider notified?: Yes Primary care physician: Alex Alberto [facility] Course: Final diagnosis -Chronic low back pain with multilevel osteoporotic compression fractures as noted on MRI -Hypertension -hyperlipidemia -Hyperthyroidism -Gastroesophageal reflux disease -Anxiety disorder -DVT prophylaxis -Full code Discharge disposition Patient is being discharged in a stable condition with guarded prognosis to [facility] for continued PT/OT therapy. Patient will follow-up with Dr. Fields in the [facility] upon discharge. Patient will follow-up with Dr. Kim Alberto outpatient once discharged from [facility]. Patient also instructed to follow- up with orthopedics in the outpatient setting. Total time taken is greater than 35 minutes. Hospital course 85-year-old female is being admitted because of lumbar compression fractures in patient is unable to ambulate or even get up or sit up by herself. Patient lives by herself at home. Patient doesn't have any kids but does have a sister who lives close by. Patient has chronic low back pain had a recent trip from [place] which she believes may have aggravated her back pain her back pain sharp in nature moderate to severe radiating to back of the the right buttock going up to the ankle area which is electric shocklike in nature and needle like sensation. Patient had a CT of the lumbar spine which showed compression fractures subacute to chronic on T12 and L5 and also is some partial fractures at 2 and L3 levels. Patient denied any loss of bowel or bladder incontinence. Patient denied any fever chills. 10/04/2020 Patient is seen and evaluated in follow-up currently awaiting to receive a TLSO brace she continues to be unable to get up and ambulate without extreme pain. Patient continues to state that it feels like lightening shocks down her leg. TLSO brace was ordered although is very uncomfortable for the patient causing worsening pain and continued immobility to move. Will consult orthopedics and appreciate input. Patient also states that she recently fell due to the pain and difficulty in ambulating. 10/05/2020 Patient was seen and evaluated and follow-up this morning with no acute overnight issues. Patient was able to get up and work with physical therapy and will continue with the TLSO brace along with a walker while out of bed and will be following up with orthopedics outpatient as needed. Patient underwent MRI showing multilevel osteoporotic compression fractures with degenerative disc dis ease and facet arthropathy with multilevel foraminal encroachment. Patient will be receiving epidural injections with orthopedics prior to discharge and will continue with conservative treatment at this time. Currently no reports of chest pain, shortness of breath, or palpitations. Patient is afebrile. Patient will be discharged to [facility] on the villagran today. On exam vital signs are stable. Cardio S1, S2 are muffled. Respiratory system shows diminished breath sounds at the bases with no wheezing or rhonchi noted. Abdomen is soft and nontender. Nervous system shows diffuse weakness. Please refer to medication reconciliation sheet for a list of medications. Patient Condition at Discharge: Stable Plan - Discharge Summary New Discharge Prescriptions: New Gabapentin [Neurontin] 300 mg PO TID #12 cap Cyclobenzaprine [Flexeril] 5 mg PO BID PRN tab PRN Reason: Muscle Spasm Acetaminophen Tab [Tylenol] 650 mg PO Q6HR PRN tab PRN Reason: Mild Pain Or Fever > 100.5 traMADol HCl [Ultram] 50 mg PO Q6H PRN #10 tab PRN Reason: Moderate Pain Continue Levothyroxine Sodium [Synthroid] 25 mcg PO DAILY Lansoprazole 30 mg PO QAM Atorvastatin [Lipitor] 20 mg PO HS Metoprolol Succinate (ER) [Toprol XL] 50 mg PO DAILY Lisinopril-Hctz 20-25 mg [Zestoretic 20-25] 1 tab PO DAILY rOPINIRole HCL [Requip] 1 mg PO HS Multivitamins, Thera [Multivitamin (formulary)] 1 tab PO DAILY Discontinued Denosumab [Prolia] 60 mg SQ Q180D Aspirin EC [Ecotrin] 325 mg PO BID PRN PRN Reason: Pain Discharge Medication List Lansoprazole 30 mg PO QAM 01/11/15 [History] Levothyroxine Sodium [Synthroid] 25 mcg PO DAILY 01/11/15 [History] Atorvastatin [Lipitor] 20 mg PO HS 08/18/17 [History] Lisinopril-Hctz 20-25 mg [Zestoretic 20-25] 1 tab PO DAILY 08/31/18 [History] Metoprolol Succinate (ER) [Toprol XL] 50 mg PO DAILY 08/31/18 [History] rOPINIRole HCL [Requip] 1 mg PO HS 04/30/19 [History] Multivitamins, Thera [Multivitamin (formulary)] 1 tab PO DAILY 10/03/20 [History] Acetaminophen Tab [Tylenol] 650 mg PO Q6HR PRN tab 10/05/20 [Rx] Cyclobenzaprine [Flexeril] 5 mg PO BID PRN tab 10/05/20 [Rx] Gabapentin [Neurontin] 300 mg PO TID #12 cap 10/05/20 [Rx] traMADol HCl [Ultram] 50 mg PO Q6H PRN #10 tab 10/05/20 [Rx] Follow up Appointment(s)/Referral(s): Alex Alberto DO [Primary Care Provider] - 1-2 days Shankar Alcantara DO [Doctor of Osteopathic Medicine] - 3 Weeks Activity/Diet/Wound Care/Special Instructions: Clearence from Ortho for discharge -Order received for discharge from ortho. see communication order Patient is going to [facility] on the villagran Activity as tolerated Continue with regular diet gluten-free Continue with TLSO brace while out of bed Follow-up with orthopedics outpatient Follow-up with primary care provider upon discharge Discharge Disposition: TRANSFER TO SNF/ECF
--- NOTE | 2020-10-05 14:25 | P.CON ---
Consult Note - . Consult date: 10/05/20 Assessment/Plan:: This is an 85-year-old lady with history of chronic lower back pain with radiation to the right foot. The patient was admitted due to an acute exacerbation of her pain. The lumbar spine MRI shows severe lumbar stenosis at multiple levels including L3 4 and L4 5 with pressures on the right side which correlates with her clinical symptoms. The patient received Lovenox this morning. By physical exam she is alert and is done for 3 in no apparent distress Straight leg raising test negative bilaterally Decreased right knee flexion strength to 4 out of 5 on the right side but normal ankle flexion and extension bilaterally Plan: The patient may benefit from getting a lumbar epidural steroid injection at L3 4 or L4 5 in the right interlaminar approach. The patient received Lovenox this morning and the procedure will be scheduled fo r tomorrow unless she is willing to have this done as an outpatient procedure if she is ready to be discharged. Our plan was explained to the orthopedic surgery service and I spoke with the patient's nurse about holding her Lovenox for 24 hours if we decided to do this procedure tomorrow. I thank you for the consultation
--- NOTE | 2020-10-05 14:31 | P.PCN ---
Date of Procedure: 10/05/20 Preoperative Diagnosis: Right hip trochanteric bursitis, right lower extremity radiculopathy, T12, L2, L5 compression fractures, L3-L4, L4-L5 spinal stenosis with facet hypertrophy Postoperative Diagnosis: Same Procedure(s) Performed: Right hip trochanteric bursa steroid injection Anesthesia: regional Surgeon: Ricci Washington Assistant #1: Edin Sapp Estimated Blood Loss (ml): 0 Pathology: none sent Condition: stable Disposition: no change Indications for Procedure: Right hip pain Description of Procedure: We discussed the treatment plan with the patient today at bedside. She will be scheduled for a epidural steroid injection on 10/06/2020. With the symptoms she has involving the right hip, we did recommend a steroid injection into the trochanteric bursa on the right side. We discussed the risk and benefits of the patient's bedside. She was in good understanding and wanted to proceed. A timeout was done at bedside, the nurse was present. Patient was placed in the lateral position lying on her left side. The skin was prepped with 1 iodine swab and one alcohol swabs. A 25-gauge needle was then used to inject 1 mL 1% plain lidocaine, 0.25% plain Marcaine, 45 mg of Depo- Medrol into the trochanteric bursa on the right side. Band-Aid was applied. Patient tolerated procedure.
--- NOTE | 2020-10-05 14:46 | P.PN ---
Subjective Progress Note Date: 10/05/20 85-year-old female is being admitted because of lumbar compression fractures in patient is unable to ambulate or even get up or sit up by herself. Patient lives by herself at home. Patient doesn't have any kids but does have a sister who lives close by. Patient has chronic low back pain had a recent trip from [place] which she believes may have aggravated her back pain her back pain sharp in nature moderate to severe radiating to back of the the right buttock going up to the ankle area which is electric shocklike in nature and needle like sensation. Patient had a CT of the lumbar spine which showed compression fractures subacute to chronic on T12 and L5 and also is some partial fractures at 2 and L3 levels. Patient denied any loss of bowel or bladder incontinence. Patient denied any fever chills. 10/04/2020 Patient is seen and evaluated in follow-up currently awaiting to receive a TLSO brace she continues to be unable to get up and ambulate without extreme pain. Patient continues to state that it feels like lightening shocks down her leg. TLSO brace was ordered although is very uncomfortable for the patient causing worsening pain and continued immobility to move. Will consult orthopedics and appreciate input. Patient also states that she recently fell due to the pain and difficulty in ambulating. 10/05/2020 Patient is seen in follow-up this morning and was seen and evaluated by orthopedics recommending epidural injections and also consulted anesthesia who would like to do epidural injections in the morning prior to being discharged to [facility]. Patient's potassium was 3.4 and will replace and continue to monitor. PT/OT following. Review of systems: Constitutional: No reports of fatigue, fever, or chills Cardiovascular: No reports of chest pain or palpitations Respiratory: No reports of shortness of breath or cough GI: No reports of nausea, vomiting, or diarrhea : No reports of dysuria or retention Neurovascular: Reports generalized weakness All medications have been reviewed Objective - Vital Signs Vital signs: Vital Signs Temp 97.9 F 10/05/20 11:38 Pulse 76 10/05/20 11:38 Resp 17 10/05/20 11:38 BP 124/79 10/05/20 11:38 Pulse Ox 97 10/05/20 11:38 Intake & Output 10/04/20 10/05/20 10/05/20 18:59 06:59 18:59 Intake Total 620 Balance 620 Intake: Oral 620 Other: Voiding Method Bedside Commode Bedside Commode Bedside Commode # Voids 1 1 - Exam GENERAL: The patient is alert and oriented x3, not in any acute distress. Well developed, well nourished. HEENT: Pupils are round and equally reacting to light. EOMI. No scleral icterus. No conjunctival pallor. Normocephalic, atraumatic. No pharyngeal erythema. No thyromegaly. CARDIOVASCULAR: S1 and S2 present. No murmurs, rubs, or gallops. PULMONARY: Chest is clear to auscultation, no wheezing or crackles. ABDOMEN: Soft, nontender, nondistended, normoactive bowel sounds. No palpable organomegaly. MUSCULOSKELETAL: Gait unsteady because of severe back pain EXTREMITIES: No cyanosis, clubbing, or pedal edema. NEUROLOGICAL: Gross neurological examination did not reveal any focal deficits. SKIN: No rashes. - Labs CBC & Chem 7: 10/03/20 18:05 10/05/20 05:15 Labs: Abnormal Lab Results - Last 24 Hours (Table) 10/04/20 10/05/20 Range/Units 06:59 05:15 Potassium 3.4 L (3.5-5.5) mmol/L Est GFR (CKD-EPI)NonAf 58.3 L 58.3 L (60.0-200.0) BUN/Creatinine Ratio 22.22 H 24.44 H (12.00-20.00) Ratio Glucose 116 H (70-110) mg/dL Assessment and Plan Assessment: -Chronic low back pain with the compression fractures: Patient functionality is poor because of these compression fractures and multilevel compression fractures noted on MRI and was seen and evaluated by orthopedics recommending steroid epidural injections and anesthesia will be doing multilevel epidural injections in the morning prior to being discharged to ECF -Hypertension: Continue current medications -hyperlipidemia -Hyperthyroidism -Gastroesophageal reflux disease -Anxiety disorder -DVT prophylaxis with Lovenox Plan: Consulted orthopedics and will be having epidural injections. Consult also placed anesthesia and will have multilevel epidural injections in the morning prior to being discharged to ECF. Patient has been obtained and patient will be going [facility] once discharged. Patient to continue TLSO brace while out of bed. She continues to have pain with mobility and extremely weak. Anticipate discharge in 24 hours.
--- NOTE | 2020-10-05 15:29 | P.PN ---
Subjective Progress Note Date: 10/05/20 Principal diagnosis: 1. Compression deformities T12, L2 L5; Moderate to severe spinal stenosis L3, L4, L5 with facet hypertrophy 2. Right hip greater trochanteric bursitis 3. Bilateral lower extremity radiculopathy Upon entering room this morning patient was seen this afternoon. Patient was lying fire, that eating lunch. She said not much change from yesterday. She mentions she still having this right leg pain as well as lower back pain. She wishes she peeled walk without pain again. He does say she is willing to go forth with an injection to her hip to help relieve pain. She says she is. Pain management performing injection tomorrow as well. Patient denies any fever, chest pain, shortness of breath, nausea, vomiting, vision changes. Patient denies any loss of bowel/bladder control. Objective - Vital Signs Vital signs: Vital Signs Temp 97.9 F 10/05/20 11:38 Pulse 76 10/05/20 11:38 Resp 17 10/05/20 11:38 BP 124/79 10/05/20 11:38 Pulse Ox 97 10/05/20 11:38 Intake & Output 10/04/20 10/05/20 10/05/20 18:59 06:59 18:59 Intake Total 620 Balance 620 Intake: Oral 620 Other: Voiding Method Bedside Commode Bedside Commode Bedside Commode # Voids 1 1 - Exam Negative for any changes since yesterday. Skin inspection: No evident open fractures/ulcers evident throughout exam. Negative for any visible areas erythema or lesions. Sensation: Sensation is intact, equal, symmetric throughout the lower extremities and upper extremities. Palpation: Spine is nontender to palpation throughout cervical, thoracic, lumbar regions. None tender to touch of the paravertebral muscles. Knees, ankles, feet are nontender to palpation throughout. Tenderness to palpation of the right lateral hip. Negative Homans bilaterally Range of motion: Upper extremities - full range of motion; lower extremities - full range of motion; patient able to elevate right leg without pain, but while lowering right leg to bed patient says she does feel pain in the right leg, laterally. This is also evident during right knee flexion. Motor: Upper extremities: Full strength 5 out of 5. Lower extremities: Full strength 5 out of 5 on dorsiflexion, plantar flexion, knee extension and flexion bilaterally; hip flexion extension 5/5 bilaterally Reflexes/tensioning signs: Clonus negative bilaterally upon dorsiflexing feet; negative Spurling's; negative Tarik's bilaterally. Patellar reflexes normal Neurovascular status: Radial pulses present, intact 2+. Dorsalis pedis pulse present, intact 2+. Cap refill < 3 seconds. - Labs CBC & Chem 7: 10/03/20 18:05 10/05/20 05:15 Labs: Abnormal Lab Results - Last 24 Hours (Table) 10/04/20 10/05/20 Range/Units 06:59 05:15 Potassium 3.4 L (3.5-5.5) mmol/L Est GFR (CKD-EPI)NonAf 58.3 L 58.3 L (60.0-200.0) BUN/Creatinine Ratio 22.22 H 24.44 H (12.00-20.00) Ratio Glucose 116 H (70-110) mg/dL Assessment and Plan Assessment: 1. Compression deformities T12, L2 L5; Moderate to severe spinal stenosis L3, L4, L5 with facet hypertrophy 2. Right hip greater trochanteric bursitis 3. Bilateral lower extremity radiculopathy Plan: 1. Chronic back pain/right leg pain - x-ray lumbar spine performed as well as CT of lumbar spine - compression fractures evident at T12 and L5. MRI of lumbar spine performed this morning showing compression fractures at T12, L2, L5 as well as moderate to severe spinal stenosis from L3 to L5 with facet hypertrophy. Steroid injection was given to the right greater trochanter. Pain management planning on doing surgery injection tomorrow. 2. Appreciate medical management 3. Pain management - Steroid injection given to the right greater trochanter. Pain management planning on doing an epidural steroid injection tomorrow 4. GI prophylaxis/DVT prophylaxis - discontinue Lovenox. 5. PT/OT - up out of bed with walker for assistance 6. Discharge planning - I did talk with medicine and they're planning on discharging the patient to [facility] following steroid injection into back tomorrow Time with Patient: Less than 30
[2020-10-05] MEDS: ATORVASTATIN 20 MG TAB PO SCH (20:09)
[2020-10-06] MEDS: LEVOTHYROXINE 25 MCG TAB PO SCH (05:28)
[2020-10-06] MEDS: ENOXAPARIN 40 MG/0.4 ML SYRINGE SQ SCH (05:29)
[2020-10-06] MEDS: GABAPENTIN 300 MG CAP PO SCH (09:02)
[2020-10-06] MEDS: METOPROLOL SUCCINATE (ER) 50 MG TAB.ER.24H PO SCH (09:02)
[2020-10-06] MEDS: PANTOPRAZOLE 40 MG TABLET PO SCH (09:02)
[2020-10-06] MEDS: MULTIVITAMINS, THERA 1 EACH TAB PO SCH (09:02)
[2020-10-06] MEDS: LISINOPRIL-HCTZ 20-25 MG 1 EACH TAB PO SCH (09:02)
--- NOTE | 2020-10-06 10:52 | P.PN ---
Subjective Progress Note Date: 10/06/20 Principal diagnosis: 1. Compression deformities T12, L2 L5; Moderate to severe spinal stenosis L3, L4, L5 with facet hypertrophy 2. Right hip greater trochanteric bursitis 3. Bilateral lower extremity radiculopathy Patient was seen this morning. She was sitting up in her chair with breakfast. Patient did say she had a bowel movement. patient said she got up this morning and went to the bathroom using a walker, nurse was there for assistance. She currently has back brace on. Patient mentioned she is still having pain in the right leg that radiates down to the ankle. She says she does not know if the injection from yesterday is working. Paient denies fever, chest pain, shortness of breath. N/V. Patient denies saddle anesthesia. Objective - Vital Signs Vital signs: Vital Signs Temp 97.6 F 10/06/20 04:36 Pulse 65 10/06/20 04:36 Resp 18 10/06/20 04:36 BP 155/88 10/06/20 04:36 Pulse Ox 93 L 10/06/20 04:36 Intake & Output 10/05/20 10/06/20 10/06/20 18:59 06:59 18:59 Intake Total 400 300 Balance 400 300 Intake: Oral 400 300 Other: Voiding Method Bedside Commode Bedside Commode Bedside Commode # Voids 2 - Exam Negative for any changes since yesterday. Skin inspection: No evident open fractures/ulcers evident throughout exam. Negative for any visible areas erythema or lesions. Sensation: Sensation is intact, equal, symmetric throughout the lower extremities and upper extremities. Palpation: Spine is nontender to palpation throughout cervical, thoracic, lumbar regions. None tender to touch of the paravertebral muscles. Knees, ankles, feet are nontender to palpation throughout. Tenderness to palpation of the right lateral hip. Negative Homans bilaterally Range of motion: Upper extremities - full range of motion; lower extremities - full range of motion; patient able to elevate right leg without pain, but while lowering right leg to bed patient says she does feel pain in the right leg, laterally. This is also evident during right knee flexion. Motor: Upper extremities: Full strength 5 out of 5. Lower extremities: Full strength 5 out of 5 on dorsiflexion, plantar flexion, knee extension and flexion bilaterally; hip flexion extension 5/5 bilaterally Reflexes/tensioning signs: Clonus negative bilaterally upon dorsiflexing feet; negative Spurling's; negative Tarik's bilaterally. Patellar reflexes normal Neurovascular status: Radial pulses present, intact 2+. Dorsalis pedis pulse present, intact 2+. Cap refill < 3 seconds. - Labs CBC & Chem 7: 10/03/20 18:05 10/05/20 05:15 Labs: Abnormal Lab Results - Last 24 Hours (Table) 10/05/20 Range/Units 05:15 Potassium 3.4 L (3.5-5.5) mmol/L Est GFR (CKD-EPI)NonAf 58.3 L (60.0-200.0) BUN/Creatinine Ratio 24.44 H (12.00-20.00) Ratio Assessment and Plan Assessment: 1. Compression deformities T12, L2 L5; Moderate to severe spinal stenosis L3, L4, L5 with facet hypertrophy 2. Right hip greater trochanteric bursitis 3. Bilateral lower extremity radiculopathy Plan: 1. Chronic back pain/right leg pain - x-ray lumbar spine performed as well as CT of lumbar spine - compression fractures evident at T12 and L5. MRI of lumbar spine performed yesterday showing compression fractures at T12, L2, L5 as well as moderate to severe spinal stenosis from L3 to L5 with facet hypertrophy. Steroid injection was given yesterday to the right greater trochanter. Pain management planning on doing steroid injection today. 2. Appreciate medical management 3. Pain management - Steroid injection given to the right greater trochanter. Pain management planning on doing an epidural steroid injection today 4. GI prophylaxis/DVT prophylaxis - discontinue Lovenox. 5. PT/OT - up out of bed with walker for assistance 6. Discharge planning - I did talk with medicine and they're planning on discharging the patient to [facility] following steroid injection into back today. Time with Patient: Less than 30
[2020-10-06] MEDS ORDERED: LACTATED RINGERS 1,000 ML IV ONE (11:07)
[2020-10-06] MEDS ORDERED: IOPAMIDOL M200 10 ML VIAL ONE (11:15)
[2020-10-06] MEDS ORDERED: methylPREDNISolone ACETATE 40 MG/ML 1 ML VIAL ONE (11:15)
--- NOTE | 2020-10-06 11:31 | P.PCN ---
Date of Procedure: 10/06/20 Procedure(s) Performed: PREOPERATIVE DIAGNOSIS: 1- Lumbar Degenerative Disc Diseases 2-Lumbar spondylosis with Facet arthropathy without myelopathy 3-lumbar spinal stenosis POSTOPERATIVE DIAGNOSIS: Same as preop diagnosis. PROCEDURE 1. Lumbar epidural steroid injection under fluoroscopic guidance at the L3-4 level. (Fluoroscopy imaging was available in radiology department) 2. Lumbar epidurogram. ANESTHESIA: Local with 1% lidocaine 3 ml only ( NO IV sedation was given ) EBL: Minimal PROCEDURE INDICATION: The patient with low back pain and radiculitis symptoms unresponsive to conservative treatment. Fluoroscopy was used to optimize visualization of the needle placement and to maximize safety. PROCEDURE DESCRIPTION / TECHNIQUE: The patient was seen and identified in the preoperative area. Risks, benefits, complications including but not limited to infections ,bleeding ,allergic reaction to the medications ,nerve damage and not complete pain releife , and alternatives were discussed with the patient. The patient agreed to proceed with the procedure and signed the consent. IV was started, and vital signs were stable. Patient was taken to the OR and time out was completed. The patient was placed in the prone position on procedure table and a pillow was placed under the abdomen to reduce lumbar lordosis. The lumbosacral area was prepped and draped in the usual sterile fashion.ere closely monitored during the procedure. Vital signs was monitered during the entire procedure. Using anterior-posterior fluoroscopy, the L3-4 interlaminar space was identified and the skin over this site was marked and then infiltrated with 1% lidocaine subcutaneously. Subsequently, a 20-gauge Tuohy epidural needle was inserted and advanced toward the epidural space using the ``Loss of resistance technique and guided by AP and lateral fluoroscopy. The correct needle position in the epidural space was verified with the injection of 2 mL of the water soluble contrast dye Isovue 200 contrast and observing an excellent epidurogram with the epidural spread of the dye, after negative aspiration for blood and CSF and in the absence of paresthesias. Again after negative aspiration, a 6 ml mixture containing 40 mg of Depo-medrol , and 2 ml of preservative free Normal Saline, and 2 ml of preservative free lidocaine 1% solution was injected and a washout of epidurogram was seen. Needle was withdrawn intact, skin was cleansed, and bandages were applied. COMPLICATIONS: None DISPOSITION / PLANS: The patient was placed in a supine position and transferred to the recovery area in a stable condition for observation. There was no evidence of lower extremity motor or sensory deficit after the procedure. Patient was discharged from the recovery room after meeting discharge criteria. Home discharge instructions were given to the patient by the staff. The patient was reexamined prior to discharge. The patient will schedule a follow up in the clinic in 2-4 weeks.
[2020-10-06 12:07] VITALS: BP 125/74; PULSE 68; RESP 18; TEMP 97.7
--- NOTE | 2020-10-06 12:31 | P.DS ---
Providers Date of admission: 10/03/20 16:20 Expected date of discharge: 10/06/20 Attending physician: Ricky Yu Consults: 10/04/20 14:52 Consult Physician Stat Consulting Provider: Shankar Alcantara Consult Reason/Comments: back pain, recent fall/ ct findings suggest compression fx Do you want consulting provider notified?: Yes 10/05/20 10:06 Consult Physician Routine Consulting Provider: Yennifer Gallagher Consult Reason/Comments: L3-4 GIUSEPPE Do you want consulting provider notified?: Yes Primary care physician: Alex Alberto [place] Hospital Course: Final diagnosis -Chronic low back pain with multilevel osteoporotic compression fractures as noted on MRI -Hypertension -hyperlipidemia -Hyperthyroidism -Gastroesophageal reflux disease -Anxiety disorder -DVT prophylaxis -Full code Discharge disposition Patient is being discharged in a stable condition with guarded prognosis to [facility] for continued PT/OT therapy. Patient will follow-up with Dr. Fields in the [facility] upon discharge. Patient will follow-up with Dr. Kim Alberto outpatient once discharged from [facility]. Patient also instructed to follow- up with orthopedics and pain management in the outpatient setting. Total time taken is greater than 35 minutes. Hospital course 85-year-old female is being admitted because of lumbar compression fractures in patient is unable to ambulate or even get up or sit up by herself. Patient lives by herself at home. Patient doesn't have any kids but does have a sister who lives close by. Patient has chronic low back pain had a recent trip from [place] which she believes may have aggravated her back pain her back pain sharp in nature moderate to severe radiating to back of the the right buttock going up to the ankle area which is electric shocklike in nature and needle like sensation. Patient had a CT of the lumbar spine which showed compression fractures subacute to chronic on T12 and L5 and also is some partial fractures at 2 and L3 levels. Patient denied any loss of bowel or bladder incontinence. Patient denied any fever chills. 10/04/2020 Patient is seen and evaluated in follow-up currently awaiting to receive a TLSO brace she continues to be unable to get up and ambulate without extreme pain. Patient continues to state that it feels like lightening shocks down her leg. TLSO brace was ordered although is very uncomfortable for the patient causing worsening pain and continued immobility to move. Will consult orthopedics and appreciate input. Patient also states that she recently fell due to the pain and difficulty in ambulating. 10/05/2020 Patient was seen and evaluated and follow-up this morning with no acute overnight issues. Patient was able to get up and work with physical therapy and will continue with the TLSO brace along with a walker while out of bed and will be following up with orthopedics outpatient as needed. Patient underwent MRI showing multilevel osteoporotic compression fractures with degenerative disc disease and facet arthropathy with multilevel foraminal encroachment. Patient will be receiving epidural injections with orthopedics prior to discharge and will continue with conservative treatment at this time. Currently no reports of chest pain, shortness of breath, or palpitations. Patient is afebrile. Patient will be discharged to [facility] [address] today. 10/06/2020 Patient is seen in follow-up this morning and has received epidural injections which were on hold from yesterday secondary to receiving a dose of Lovenox in the morning and was evaluated by Dr. Gallagher and injections were received. Patient will follow-up outpatient with pain management along with orthopedics once discharged from [facility]. Patient is going to [facility] on [facility] today for continued PT/OT therapy. On exam vital signs are stable. Cardio S1, S2 are muffled. Respiratory system shows diminished breath sounds at the bases with no wheezing or rhonchi noted. Abdomen is soft and nontender. Nervous system shows diffuse weakness. Please refer to medication reconciliation sheet for a list of medications. Patient Condition at Discharge: Stable Plan - Discharge Summary New Discharge Prescriptions: New Gabapentin [Neurontin] 300 mg PO TID #12 cap Cyclobenzaprine [Flexeril] 5 mg PO BID PRN tab PRN Reason: Muscle Spasm Acetaminophen Tab [Tylenol] 650 mg PO Q6HR PRN tab PRN Reason: Mild Pain Or Fever > 100.5 traMADol HCl [Ultram] 50 mg PO Q6H PRN #10 tab PRN Reason: Moderate Pain Continue Levothyroxine Sodium [Synthroid] 25 mcg PO DAILY Lansoprazole 30 mg PO QAM Atorvastatin [Lipitor] 20 mg PO HS Metoprolol Succinate (ER) [Toprol XL] 50 mg PO DAILY Lisinopril-Hctz 20-25 mg [Zestoretic 20-25] 1 tab PO DAILY rOPINIRole HCL [Requip] 1 mg PO HS Multivitamins, Thera [Multivitamin (formulary)] 1 tab PO DAILY Discontinued Denosumab [Prolia] 60 mg SQ Q180D Aspirin EC [Ecotrin] 325 mg PO BID PRN PRN Reason: Pain Discharge Medication List Lansoprazole 30 mg PO QAM 01/11/15 [History] Levothyroxine Sodium [Synthroid] 25 mcg PO DAILY 01/11/15 [History] Atorvastatin [Lipitor] 20 mg PO HS 08/18/17 [History] Lisinopril-Hctz 20-25 mg [Zestoretic 20-25] 1 tab PO DAILY 08/31/18 [History] Metoprolol Succinate (ER) [Toprol XL] 50 mg PO DAILY 08/31/18 [History] rOPINIRole HCL [Requip] 1 mg PO HS 04/30/19 [History] Multivitamins, Thera [Multivitamin (formulary)] 1 tab PO DAILY 10/03/20 [History] Acetaminophen Tab [Tylenol] 650 mg PO Q6HR PRN tab 10/05/20 [Rx] Cyclobenzaprine [Flexeril] 5 mg PO BID PRN tab 10/05/20 [Rx] Gabapentin [Neurontin] 300 mg PO TID #12 cap 10/05/20 [Rx] traMADol HCl [Ultram] 50 mg PO Q6H PRN #10 tab 10/05/20 [Rx] Follow up Appointment(s)/Referral(s): Alex Alberto DO [Primary Care Provider] - 1-2 days Shankar Alcantara DO [Doctor of Osteopathic Medicine] - 3 Weeks Yennifer Gallagher MD [STAFF PHYSICIAN] - 2 Weeks Activity/Diet/Wound Care/Special Instructions: Patient is going to [facility] on the [address] Activity as tolerated Continue with regular diet gluten-free Continue with TLSO brace while out of bed Follow-up with orthopedics outpatient Follow-up with primary care provider upon discharge Follow-up with pain management outpatient in 2-3 weeks Discharge/Stand Alone Forms: Anes Pain/[place] Instructions Discharge Disposition: TRANSFER TO SNF/ECF
--- NOTE | 2020-10-06 15:18 | FL ---
Fluoroscopy HISTORY: Pain 4 seconds fluoroscopy time supplied to the referring clinician. 1 intraoperative C-arm images docume nt the procedure. See dictated report from anesthesia.
== END 2020-10-06 15:30 | DRG 552 ==
LOC: EC 14:11 → 5NMEDONC 16:20
PROVIDERS: ADMIT Internal Medicine; ATTEND Internal Medicine
PROC: 3E0R33Z Introduction of Anti-inflammatory into Spinal Canal, Percutaneous Approach (ICD-10-PCS; principal; 2020-10-05)
PROC: 3E0R33Z Introduction of Anti-inflammatory into Spinal Canal, Percutaneous Approach (ICD-10-PCS; 2020-10-06)
PROC: B01B1ZZ Fluoroscopy of Spinal Cord using Low Osmolar Contrast (ICD-10-PCS; 2020-10-06)
DX: M48.061 Spinal stenosis, lumbar region without neurogenic claudication (principal); M80.08XA Age-related osteoporosis with current pathological fracture, vertebra(e), initial encounter for fracture; M47.26 Other spondylosis with radiculopathy, lumbar region; E88.2 Lipomatosis, not elsewhere classified; M70.61 Trochanteric bursitis, right hip; Y92.013 Bedroom of single-family (private) house as the place of occurrence of the external cause; G89.29 Other chronic pain; I10 Essential (primary) hypertension; K21.9 Gastro-esophageal reflux disease without esophagitis; E05.90 Thyrotoxicosis, unspecified without thyrotoxic crisis or storm; K90.0 Celiac disease; E78.5 Hyperlipidemia, unspecified; G25.81 Restless legs syndrome; F41.0 Panic disorder [episodic paroxysmal anxiety]; Z98.890 Other specified postprocedural states; Z88.0 Allergy status to penicillin; Z88.2 Allergy status to sulfonamides; Z91.030 Bee allergy status; Z91.02 Food additives allergy status; Z79.890 Hormone replacement therapy; Z79.899 Other long term (current) drug therapy; Z79.82 Long term (current) use of aspirin; Z20.822 Contact with and (suspected) exposure to COVID-19; Z85.3 Personal history of malignant neoplasm of breast; Z85.51 Personal history of malignant neoplasm of bladder; Z85.828 Personal history of other malignant neoplasm of skin; Z80.9 Family history of malignant neoplasm, unspecified; Z80.3 Family history of malignant neoplasm of breast; M51.16 Intervertebral disc disorders with radiculopathy, lumbar region; Z91.81 History of falling
CPT/HCPCS: 62323; 72100; 72131; 72148; 73502; 80048; 85025; 87635; 99285

== ENCOUNTER 2020-10-25 14:15 | Inpatient (IN) | payer MEDICARE ==
[2020-10-25] MEDS ORDERED: SODIUM CHLORIDE 0.9% 1,000 ML IV STA (14:41)
[2020-10-25] MEDS ORDERED: DILTIAZEM DRIP BOLUS FROM BAG 1 MG SOLN IV ONE ×2 (15:12→17:04)
--- NOTE | 2020-10-25 15:14 | ED ---
General Adult HPI - General Chief complaint: Weakness Stated complaint: weakness Time Seen by Provider: 10/25/20 14:30 Source: patient, EMS, RN notes reviewed, old records reviewed Mode of arrival: EMS Limitations: no limitations - History of Present Illness Initial comments: This is an 85-year-old female who presents to the emergency department after h aving fallen yesterday and complained of right hip pain when EMS brought her in the noted her heart rate to be between 1 5160. Patient denies any history of irregular heartbeat or atrial fibrillation. Patient denies any headache patient denies any head injury or trauma. Patient denies any neck pain. Patient denies any numbness or weakness. Patient denies chest pain difficulty breathing or yves rtness of breath. Patient denies abdominal pain patient denies nausea vomiting or diarrhea. Patient does complain of right hip pain but she has full range of motion. Patient states she fell yesterday after having lost her balance. - Related Data Home Medications Medication Instructions Recorded Confirmed Lansoprazole 30 mg PO DAILY 01/11/15 10/25/20 Levothyroxine Sodium [Synthroid] 25 mcg PO DAILY 01/11/15 10/25/20 Atorvastatin [Lipitor] 20 mg PO HS 08/18/17 10/25/20 Lisinopril-Hctz 20-25 mg 1 tab PO DAILY 08/31/18 10/25/20 [Zestoretic 20-25] Metoprolol Succinate (ER) [Toprol 50 mg PO DAILY 08/31/18 10/25/20 XL] rOPINIRole HCL [Requip] 1 mg PO HS 04/30/19 10/25/20 Multivitamins, Thera [Multivitamin 1 tab PO DAILY 10/03/20 10/25/20 (formulary)] Aspirin EC [Ecotrin] 975 mg PO ONCE PRN 10/25/20 10/25/20 Previous Rx's Medication Instructions Recorded Acetaminophen Tab [Tylenol] 650 mg PO Q6HR PRN tab 10/05/20 Cyclobenzaprine [Flexeril] 5 mg PO BID PRN tab 10/05/20 Gabapentin [Neurontin] 300 mg PO TID #12 cap 10/05/20 traMADol HCl [Ultram] 50 mg PO Q6H PRN #10 tab 10/05/20 Allergies Allergy/AdvReac Type Severity Reaction Status Date / Time bee pollen Allergy Rash/Hives Verified 10/25/20 16:30 gluten Allergy Nausea & Verified 10/25/20 16:30 Vomiting & Diarrhea Penicillins Allergy Rash/Hives Verified 10/25/20 16:30 Sulfa (Sulfonamide Allergy Rash/Hives Verified 10/25/20 16:30 Antibiotics) Review of Systems ROS Statement: Those systems with pertinent positive or pertinent negative responses have been documented in the HPI. ROS Other: All systems not noted in ROS Statement are negative. Past Medical History Past Medical History: Cancer, GERD/Reflux, Hyperlipidemia, Hypertension, Thyroid Disorder Additional Past Medical History / Comment(s): HX BREAST CA, BLADDER CA, LEFT LEG BASAL CELL, CELIAC DX, restless leg syndrome, previous breast wound with treatment in wound care center by Dr Grigsby History of Any Multi-Drug Resistant Organisms: None Reported Past Surgical History: Adenoidectomy, Bladder Surgery, Breast Surgery, Tonsillectomy Additional Past Surgical History / Comment(s): COLONOSCOPIES, BENIGN LUMP REMOVED FROM BACK, LEFT BREAST LUMPECTOMY, 2 Surgeries FOR BLADDER CA, LEFT LEG BASAL CELL CA REMOVED, blepharoplasty Past Anesthesia/Blood Transfusion Reactions: Postoperative Nausea & Vomiting (PONV) Past Psychological History: Anxiety, Panic Disorder Smoking Status: Never smoker Past Alcohol Use History: None Reported Past Drug Use History: None Reported - Past Family History Father Family Medical History: Cancer Brother(s) Family Medical History: Cancer Sister(s) Family Medical History: Cancer Additional Family Medical History / Comment(s): BREAST General Exam - General Exam Comments Initial Comments: GENERAL: Patient is well-developed and well-nourished. Patient is nontoxic and well- hydrated and is in mild distress. ENT: Neck is soft and supple. No significant lymphadenopathy is noted. Oropharynx is clear. Moist mucous membranes. Neck has full range of motion without eliciting any pain. EYES: The sclera were anicteric and conjunctiva were pink and moist. Extraocular movements were intact and pupils were equal round and reactive to light. Eyelids were unremarkable. PULMONARY: Unlabored respirations. Good breath sounds bilaterally. No audible rales rhonchi or wheezing was noted. CARDIOVASCULAR: Heart rate is at about 150 beats a minute. ABDOMEN: Soft and nontender with normal bowel sounds. SKIN: Skin is clear with no lesions or rashes and otherwise unremarkable. NEUROLOGIC: Patient is alert and oriented x3. Cranial nerves II through XII are grossly intact. Motor and sensory are also intact. Normal speech, volume and content. Symmetrical smile. MUSCULOSKELETAL: Normal extremities with adequate strength and full range of motion. No lower extremity swelling or edema. No calf tenderness. Patient has some tenderness to the right hip laterally has full range of motion of the hip without eliciting any pain. LYMPHATICS: No significant lymphadenopathy is noted PSYCHIATRIC: Normal psychiatric evaluation. Limitations: no limitations Course Vital Signs 10/25/20 10/25/20 14:25 15:30 Temperature 97.7 F Pulse Rate 165 H 120 H Respiratory 18 18 Rate Blood Pressure 133/57 104/62 O2 Sat by Pulse 98 96 Oximetry Medical Decision Making - Medical Decision Making EKG shows atrial fibrillation with rapid ventricular response at 164 bpm QRS is 74 QT interval is 302 QTC is 498. Patient's EKG shows ST segment depression throughout the precordial leads V3 through V6 as well as laterally 1 and aVL. Chest x-ray shows no acute abnormality. Pelvis x-ray shows no acute abnormality. Hip x-ray shows no acute abnormality. Patient's d-dimer was elevated but kidney function was poor so patient could not get a CT I started the patient on high-dose heparin because she needed at least some heparin for the A. fib and I will pulmonary determine what studies they would like to for the PE tomorrow. I spoke with the [facility] hospitalist agreed to admit the patient admitted the patient I consult pulmonary and cardiology. - Lab Data Result diagrams: 10/25/20 15:19 10/25/20 15:19 Lab Results 10/25/20 10/25/20 10/25/20 Range/Units 15:19 15:19 15:19 WBC 10.0 (3.8-10.6) k/uL RBC 4.46 (3.80-5.40) m/uL Hgb 13.9 (11.4-16.0) gm/dL Hct 41.9 (34.0-46.0) % MCV 93.9 (80.0-100.0) fL MCH 31.2 (25.0-35.0) pg MCHC 33.3 (31.0-37.0) g/dL RDW 14.7 (11.5-15.5) % Plt Count 319 (150-450) k/uL MPV 7.0 Neutrophils % 72 % Lymphocytes % 18 % Monocytes % 5 % Eosinophils % 3 % Basophils % 1 % Neutrophils # 7.3 (1.3-7.7) k/uL Lymphocytes # 1.8 (1.0-4.8) k/uL Monocytes # 0.5 (0-1.0) k/uL Eosinophils # 0.3 (0-0.7) k/uL Basophils # 0.1 (0-0.2) k/uL PT 10.2 (9.0-12.0) sec INR 0.9 (<1.2) APTT 19.2 L (22.0-30.0) sec D-Dimer 2.08 H (<0.60) mg/L FEU Sodium (137-145) mmol/L Potassium (3.5-5.1) mmol/L Chloride (98-107) mmol/L Carbon Dioxide (22-30) mmol/L Anion Gap mmol/L BUN (7-17) mg/dL Creatinine (0.52-1.04) mg/dL Est GFR (CKD-EPI)AfAm (>60 ml/min/1.73 sqM) Est GFR (CKD-EPI)NonAf (>60 ml/min/1.73 sqM) Glucose (74-99) mg/dL Plasma Lactic Acid Jacob (0.7-2.0) mmol/L Calcium (8.4-10.2) mg/dL Phosphorus (2.5-4.5) mg/dL Magnesium (1.6-2.3) mg/dL Total Bilirubin (0.2-1.3) mg/dL AST (14-36) U/L ALT (4-34) U/L Alkaline Phosphatase (38-126) U/L Troponin I (0.000-0.034) ng/mL Total Protein (6.3-8.2) g/dL Albumin (3.5-5.0) g/dL Urine Color Yellow Urine Appearance Cloudy H (Clear) Urine pH 5.5 (5.0-8.0) Ur Specific Dexter 1.024 (1.001-1.035) Urine Protein Trace H (Negative) Urine Glucose (UA) Negative (Negative) Urine Ketones 1+ H (Negative) Urine Blood Negative (Negative) Urine Nitrite Negative (Negative) Urine Bilirubin Negative (Negative) Urine Urobilinogen 2.0 (<2.0) mg/dL Ur Leukocyte Esterase Negative (Negative) Urine RBC 1 (0-5) /hpf Urine WBC 1 (0-5) /hpf Ur Squamous Epith Cells <1 (0-4) /hpf Hyaline Casts 8 H (0-2) /lpf Urine Mucus Rare H (None) /hpf 10/25/20 10/25/20 10/25/20 Range/Units 15:19 15:19 15:19 WBC (3.8-10.6) k/uL RBC (3.80-5.40) m/uL Hgb (11.4-16.0) gm/dL Hct (34.0-46.0) % MCV (80.0-100.0) fL MCH (25.0-35.0) pg MCHC (31.0-37.0) g/dL RDW (11.5-15.5) % Plt Count (150-450) k/uL MPV Neutrophils % % Lymphocytes % % Monocytes % % Eosinophils % % Basophils % % Neutrophils # (1.3-7.7) k/uL Lymphocytes # (1.0-4.8) k/uL Monocytes # (0-1.0) k/uL Eosinophils # (0-0.7) k/uL Basophils # (0-0.2) k/uL PT (9.0-12.0) sec INR (<1.2) APTT (22.0-30.0) sec D-Dimer (<0.60) mg/L FEU Sodium 141 (137-145) mmol/L Potassium 3.6 (3.5-5.1) mmol/L Chloride 104 (98-107) mmol/L Carbon Dioxide 25 (22-30) mmol/L Anion Gap 12 mmol/L BUN 34 H (7-17) mg/dL Creatinine 1.68 H (0.52-1.04) mg/dL Est GFR (CKD-EPI)AfAm 32 (>60 ml/min/1.73 sqM) Est GFR (CKD-EPI)NonAf 28 (>60 ml/min/1.73 sqM) Glucose 130 H (74-99) mg/dL Plasma Lactic Acid Jacob 1.7 (0.7-2.0) mmol/L Calcium 9.4 (8.4-10.2) mg/dL Phosphorus 4.4 (2.5-4.5) mg/dL Magnesium 1.8 (1.6-2.3) mg/dL Total Bilirubin 0.7 (0.2-1.3) mg/dL AST 37 H (14-36) U/L ALT 25 (4-34) U/L Alkaline Phosphatase 210 H (38-126) U/L Troponin I 0.087 H* (0.000-0.034) ng/mL Total Protein 7.2 (6.3-8.2) g/dL Albumin 4.1 (3.5-5.0) g/dL Urine Color Urine Appearance (Clear) Urine pH (5.0-8.0) Ur Specific Dexter (1.001-1.035) Urine Protein (Negative) Urine Glucose (UA) (Negative) Urine Ketones (Negative) Urine Blood (Negative) Urine Nitrite (Negative) Urine Bilirubin (Negative) Urine Urobilinogen (<2.0) mg/dL Ur Leukocyte Esterase (Negative) Urine RBC (0-5) /hpf Urine WBC (0-5) /hpf Ur Squamous Epith Cells (0-4) /hpf Hyaline Casts (0-2) /lpf Urine Mucus (None) /hpf Critical Care Time Critical Care Time: Yes Total Critical Care Time: 35 Disposition Clinical Impression: Atrial fibrillation with rapid ventricular response, Renal insufficiency, Elevated troponin, Right hip pain Disposition: ADMITTED IP TO THIS HOSP Referrals: Alex Alberto DO [Primary Care Provider] - 1-2 days Time of Disposition: 17:05
[2020-10-25] MEDS ORDERED: DILTIAZEM 125 MG in SODIUM CHLORIDE 0.9% 100 ML IV SCH (15:15)
[2020-10-25 15:30] LABS: Basophils # (A) 0.1 k/uL (0-0.2); Basophils % (A) 1 %; Eosinophils # (A) 0.3 k/uL (0-0.7); Eosinophils % (A) 3 %; HCT 41.9 % (34.0-46.0); HGB 13.9 gm/dL (11.4-16.0); Lymphocytes # (A) 1.8 k/uL (1.0-4.8); Lymphocytes % (A) 18 %; MCH 31.2 pg (25.0-35.0); MCHC 33.3 g/dL (31.0-37.0); MCV 93.9 fL (80.0-100.0); Monocytes # (A) 0.5 k/uL (0-1.0); Monocytes % (A) 5 %; Neutrophils # (A) 7.3 k/uL (1.3-7.7); Neutrophils % (A) 72 %; Platelet Count 319 k/uL (150-450); RBC 4.46 m/uL (3.80-5.40); RDW 14.7 % (11.5-15.5)
[2020-10-25 15:51] LABS: Albumin 4.1 g/dL (3.5-5.0); Calcium 9.4 mg/dL (8.4-10.2); Magnesium 1.8 mg/dL (1.6-2.3); Phosphorus 4.4 mg/dL (2.5-4.5); Total Bilirubin 0.7 mg/dL (0.2-1.3); Total Protein 7.2 g/dL (6.3-8.2)
[2020-10-25 15:55] LABS: Potassium 3.6 mmol/L (3.5-5.1)
[2020-10-25 15:59] LABS: Appearance,Urine Cloudy (Clear); Bilirubin,Urine Negative (Negative); Blood,Urine Negative (Negative); Color,Urine Yellow; Glucose,Urine (UA) Negative (Negative); Hyaline Casts,Urine 8 /lpf (0-2); Ketones,Urine 1+ (Negative); Leukocyte Esterase,Urine Negative (Negative); Mucus,Urine Rare /hpf; Nitrite,Urine Negative (Negative); PH, Urine 5.5 (5.0-8.0); Protein,Urine Trace (Negative); RBC,Urine 1 /hpf (0-5); Specific Gravity,Urine 1.024 (1.001-1.035); Squamous Epithelial Cell,Urine <1 /hpf (0-4); WBC,Urine 1 /hpf (0-5)
[2020-10-25 16:00] LABS: INR 0.9 (<1.2); Prothrombin Time 10.2 sec (9.0-12.0)
[2020-10-25 16:05] LABS: Partial Thromboplastin Time 19.2 sec (22.0-30.0)
[2020-10-25 16:13] LABS: D-Dimer 2.08 mg/L FEU (<0.60)
--- NOTE | 2020-10-25 16:17 | XR ---
EXAMINATION TYPE: XR Hip RT and AP Pelvis DATE OF EXAM: 10/25/2020 COMPARISON: 10/03/2020 HISTORY: Fall TECHNIQUE: AP pelvis and two-view right hip FINDINGS: Right femoral head articulates with the acetabulum. No acute fractures evident. Symphysis pubis and sacroiliac joints are patent. Normal bowel gas is present. Left femoral head sawyer culates with the acetabulum. IMPRESSION: 1. Normal right hip and AP pelvis.
--- NOTE | 2020-10-25 16:28 | XR ---
EXAMINATION TYPE: XR chest 2V DATE OF EXAM: 10/25/2020 COMPARISON: 03/01/2013 INDICATION: Weakness TECHNIQUE: Frontal and lateral views of the chest are obtained. FINDINGS: The heart size is normal. The pulmonary vasculature is normal. The lungs are clear. Surgical clips may be in the left breast area. IMPRESSION: 1. No acute pulmonary process.
[2020-10-25] MEDS ORDERED: HEPARIN SODIUM 1,000 UN/ML (10ML VL) IV STA (17:02)
[2020-10-25] MEDS ORDERED: NITROGLYCERIN SL TABS 0.4 MG TAB SUBLINGUAL PRN (17:05)
[2020-10-25] MEDS ORDERED: HEPARIN SOD,PORK IN 0.45% NACL 25,000 UNIT in 0.45% NACL 1 250ML.BAG IV SCH (17:15)
[2020-10-25] MEDS ORDERED: CYCLOBENZAPRINE 5 MG TAB PO PRN (20:30)
[2020-10-25] MEDS ORDERED: traMADol 50 MG TAB PO PRN (20:30)
[2020-10-25] MEDS: METOPROLOL SUCCINATE (ER) 50 MG TAB.ER.24H PO SCH (20:54)
[2020-10-25] MEDS: GABAPENTIN 300 MG CAP PO SCH (20:54)
[2020-10-25] MEDS: ATORVASTATIN 20 MG TAB PO SCH (20:54)
[2020-10-26] MEDS: LEVOTHYROXINE 25 MCG TAB PO SCH (06:36)
[2020-10-26] MEDS: PANTOPRAZOLE 40 MG TABLET PO SCH (06:36)
[2020-10-26] MEDS ORDERED: ASPIRIN 325 MG TAB PO SCH (09:00)
[2020-10-26] MEDS: GABAPENTIN 300 MG CAP PO SCH ×2 (09:42→16:01)
[2020-10-26] MEDS: ACETAMINOPHEN TAB 325 MG TAB PO PRN (09:43)
[2020-10-26] MEDS: MULTIVITAMINS, THERA 1 EACH TAB PO SCH (09:43)
[2020-10-26] MEDS: METOPROLOL SUCCINATE (ER) 50 MG TAB.ER.24H PO SCH (09:43)
--- NOTE | 2020-10-26 11:49 | ECHOF ---
Referral Reason:LV function MEASUREMENTS -------- HEIGHT: 152.4 cm WEIGHT: 51.3 kg BP: RVIDd: 2.7 cm (< 3.3) IVSd: 1.3 cm (0.6 - 1.1) LVIDd: 3.9 cm (3.9 - 5.3) LVPWd: 1.3 cm (0.6 - 1.1) IVSs: 1.6 cm LVIDs: 2.6 cm LVPWs: 1.8 cm LA Diam: 4.0 cm (2.7 - 3.8) LAESV Index (A-L): 28.66 ml/m Ao Diam: 3.0 cm (2.0 - 3.7) AV Cusp: 1.5 cm (1.5 - 2.6) MV EXCURSION: 11.243 mm (> 18.000) MV EF SLOPE: 29 mm/s (70 - 150) EPSS: 1.1 cm MV E Boom: 1.07 m/s MV DecT: 292 ms MV A Boom: 1.14 m/s MV E/A Ratio: 0.94 AR PHT: 943 ms RAP: 5.00 mmHg RVSP: 30.36 mmHg FINDINGS -------- Sinus rhythm. This was a technically adequate study. The left ventricular size is normal. There is mild concentric left ventricular hypertrophy. Overa ll left ventricular systolic function is normal with, an EF between 60 - 65 %. The right ventricle is normal in size. LA is midly dilated 29-33ml/m2. The right atrium is normal in size. Interatrial and interventricular septum intact. There is mild aortic valve sclerosis. There is mild aortic regurgitation. The mitral valve leaflets are mildly thickened. Moderate mitral annular calcification present. Th ere is trace to mild mitral regurgitation. Mild tricuspid regurgitation present. Right ventricular systolic pressure is normal at < 35 mmHg. The pulmonic valve was not well visualized. The aortic root size is normal. Normal inferior vena cava with normal inspiratory collapse consistent with estimated right atrial pre ssure of 5 mmHg. There is no pericardial effusion. CONCLUSIONS -------- 1. The left ventricular size is normal. 2. There is mild concentric left ventricular hypertrophy. 3. Overall left ventricular systolic function is normal with, an EF between 60 - 65 %. 4. LA is midly dilated 29-33ml/m2. 5. There is mild aortic valve sclerosis. 6. There is mild aortic regurgitation. 7. The mitral valve leaflets are mildly thickened. 8. Moderate mitral annular calcification present. 9. There is trace to mild mitral regurgitation. 10. Mild tricuspid regurgitation present. 11. There is no pericardial effusion. INTERPRETIVE NATURALIST: ANNETTE Willams
--- NOTE | 2020-10-26 12:20 | P.CNPUL ---
History of Present Illness Consult date: 10/26/20 Requesting physician: Sunitha Asif Chief complaint: Elevated d-dimer rule out pulmonary embolism History of present illness: 85-year-old white female patient who had sustained a fall at home started having right hip pain. EMS brought the patient is to the emergency department for evaluation. In the emergency department patient was found to be in A. fib with RVR with a rate of 164 BPM. Denies previous history of atrial fibrillation. Medical history is significant for hypertension, hyperlipidemia, hypothyroidism, previous history of breast CA, bladder CA, basal cell skin cancer, and anxiety. Patient's nurse reported patient recently getting discharged home from [facility], and patient reports that she was having difficulty getting around at home. She was hospitalized in September from 10/03/2020 through 10/06/2020 when she was having difficulty ambulating and was found to have lumbar compression fractures. Patient was evaluated by orthopedic surgery, a back brace was applied, and patient was to follow-up with them on an outpatient basis and she was discharged to [facility] for physical therapy. She also received some epidural injections from pain services. In the emergency department chest x-ray showed no acute pulmonary process. Lab work showed elevated d-dimer of 2.08, and evidence of acute kidney injury with BUN of 34 and creatinine of 1.68. Addition patient had elevated troponins of 0.087, 0.088, 0.092. Urinalysis was negative for any evidence of infection, patient was checked for COVID 19 which was a negative test. Patient had a x-ray of the right hip and anteroposterior film of the pelvis and was found to have normal right hip and pelvis. Clinically patient denies any pulmonary symptoms, no shortness of breath, no chest pain, no cough, no hemoptysis, no syncopal episode. She is on heparin infusion for anticoagulation for A. fib with RVR and were asked to see the patient in consultation to rule out possibility of underlying pulmonary embolism. Review of Systems All systems: negative Constitutional: Reports weakness, Denies chills, Denies fever Eyes: denies blurred vision, denies pain Ears, nose, mouth and throat: Denies headache, Denies sore throat Cardiovascular: Denies chest pain, Denies shortness of breath Respiratory: Denies cough Gastrointestinal: Denies abdominal pain, Denies diarrhea, Denies nausea, Denies vomiting Genitourinary: Denies dysuria, Denies hematuria Musculoskeletal: Denies myalgias Musculoskeletal: right: hip pain Integumentary: Denies pruritus, Denies rash Neurological: Reports gait dysfunction, Reports weakness, Denies numbness Psychiatric: Denies anxiety, Denies depression Endocrine: Denies fatigue, Denies weight change Past Medical History Past Medical History: Cancer, GERD/Reflux, Hyperlipidemia, Hypertension, Thyroid Disorder Additional Past Medical History / Comment(s): HX BREAST CA, BLADDER CA, LEFT LEG BASAL CELL, CELIAC DX, restless leg syndrome, previous breast wound with treatment in wound care center by Dr Grigsby History of Any Multi-Drug Resistant Organisms: None Reported Past Surgical History: Adenoidectomy, Bladder Surgery, Breast Surgery, Tonsillectomy Additional Past Surgical History / Comment(s): COLONOSCOPIES, BENIGN LUMP REMOVED FROM BACK, LEFT BREAST LUMPECTOMY, 2 Surgeries FOR BLADDER CA, LEFT LEG BASAL CELL CA REMOVED, blepharoplasty Past Anesthesia/Blood Transfusion Reactions: Postoperative Nausea & Vomiting (PONV) Past Psychological History: Anxiety, Panic Disorder Smoking Status: Never smoker Past Alcohol Use History: None Reported Past Drug Use History: None Reported - Past Family History Father Family Medical History: Cancer Brother(s) Family Medical History: Cancer Sister(s) Family Medical History: Cancer Additional Family Medical History / Comment(s): BREAST Medications and Allergies Home Medications Medication Instructions Recorded Confirmed Type Lansoprazole 30 mg PO DAILY 01/11/15 10/25/20 History Levothyroxine Sodium [Synthroid] 25 mcg PO DAILY 01/11/15 10/25/20 History Atorvastatin [Lipitor] 20 mg PO HS 08/18/17 10/25/20 History Lisinopril-Hctz 20-25 mg 1 tab PO DAILY 08/31/18 10/25/20 History [Zestoretic 20-25] Metoprolol Succinate (ER) [Toprol 50 mg PO DAILY 08/31/18 10/25/20 History XL] rOPINIRole HCL [Requip] 1 mg PO HS 04/30/19 10/25/20 History Multivitamins, Thera [Multivitamin 1 tab PO DAILY 10/03/20 10/25/20 History (formulary)] Acetaminophen Tab [Tylenol] 650 mg PO Q6HR PRN tab 10/05/20 10/25/20 Rx Cyclobenzaprine [Flexeril] 5 mg PO BID PRN tab 10/05/20 10/25/20 Rx Gabapentin [Neurontin] 300 mg PO TID #12 cap 10/05/20 10/25/20 Rx traMADol HCl [Ultram] 50 mg PO Q6H PRN #10 tab 10/05/20 10/25/20 Rx Aspirin EC [Ecotrin] 975 mg PO ONCE PRN 10/25/20 10/25/20 History Apixaban [Eliquis] 2.5 mg PO BID #60 tab 10/26/20 Rx Allergies Allergy/AdvReac Type Severity Reaction Status Date / Time bee pollen Allergy Rash/Hives Verified 10/25/20 16:30 gluten Allergy Nausea & Verified 10/25/20 16:30 Vomiting & Diarrhea Penicillins Allergy Rash/Hives Verified 10/25/20 16:30 Sulfa (Sulfonamide Allergy Rash/Hives Verified 10/25/20 16:30 Antibiotics) Physical Exam Vitals: Vital Signs Temp Pulse Pulse Resp BP BP Pulse Ox 10/26/20 08:00 97.7 F 58 L 18 109/68 96 10/26/20 04:00 97.8 F 61 16 103/55 96 10/25/20 23:59 76 17 136/75 96 10/25/20 20:00 97.8 F 62 16 123/74 97 10/25/20 19:02 73 16 120/72 97 10/25/20 18:28 97.8 F 90 18 126/74 97 10/25/20 15:30 120 H 18 104/62 96 10/25/20 14:25 97.7 F 165 H 18 133/57 98 Intake and Output 10/25/20 10/26/20 10/26/20 22:59 06:59 14:59 Intake Total 25.333 68.107 Balance 25.333 68.107 Intake: Intake, IV Titration 25.333 68.107 Amount Diltiazem 125 mg In 25.333 Sodium Chloride 0.9% 100 ml @ 5 MG/HR 5 mls/hr IV .Q24H [facility] Rx#:[id number] Heparin Sod,Pork in 0.45% 68.107 NaCl 25,000 unit In 0.45 % NaCl 1 250ml.bag @ 18 UNITS/KG/HR 10.614 mls/hr IV .[id number] [facility] Rx#: [id number] Other: Voiding Method Toilet Toilet # Voids 1 1 Weight 58.967 kg 51.5 kg GENERAL EXAM: Alert, very pleasant, 85-year-old white female, who appears to be chronically ill and chronically debilitated, on room air, breathing comfortably, no apparent distress. HEAD: Normocephalic/atraumatic. EYES: Normal reaction of pupils, equal size. Conjunctiva pink, sclera white. NOSE: Clear with pink turbinates. THROAT: No erythema or exudates. NECK: No masses, no JVD, no thyroid enlargement, no adenopathy. CHEST: No chest wall deformity. Symmetrical expansion. LUNGS: Equal air entry with no crackles, wheeze, rhonchi or dullness. CVS: Regular rate and rhythm, normal S1 and S2, no gallops, no murmurs, no rubs ABDOMEN: Soft, nontender. No hepatosplenomegaly, normal bowel sounds, no guarding or rigidity. EXTREMITIES: No clubbing, no edema, no cyanosis, 2+ pulses and upper and lower extremities. MUSCULOSKELETAL: Muscle strength and tone normal. SPINE: No scoliosis or deformity SKIN: No rashes CENTRAL NERVOUS SYSTEM: Alert and oriented -3. No focal deficits, tone is normal in all 4 extremities. PSYCHIATRIC: Alert and oriented -3. Appropriate affect. Intact judgment and insight. Results - Laboratory Findings CBC and BMP: 10/25/20 15:19 10/25/20 15:19 PT/INR, D-dimer PT 10.2 sec (9.0-12.0) 10/25/20 15:19 INR 0.9 (<1.2) 10/25/20 15:19 D-Dimer 2.08 mg/L FEU (<0.60) H 10/25/20 15:19 Abnormal lab findings: Abnormal Labs 10/25/20 10/25/20 10/25/20 15:19 15:19 15:19 APTT 19.2 L D-Dimer 2.08 H BUN 34 H Creatinine 1.68 H Glucose 130 H AST 37 H Alkaline Phosphatase 210 H Troponin I Urine Appearance Cloudy H Urine Protein Trace H Urine Ketones 1+ H Hyaline Casts 8 H Urine Mucus Rare H 10/25/20 10/25/2021 15:19 19:37 22:29 APTT D-Dimer BUN Creatinine Glucose AST Alkaline Phosphatase Troponin I 0.087 H* 0.088 H* 0.092 H* Urine Appearance Urine Protein Urine Ketones Hyaline Casts Urine Mucus 10/25/20 10/26/20 22:29 09:54 APTT 81.8 H 96.1 H D-Dimer BUN Creatinine Glucose AST Alkaline Phosphatase Troponin I Urine Appearance Urine Protein Urine Ketones Hyaline Casts Urine Mucus - Diagnostic Findings Chest x-ray: report reviewed, image reviewed Additional studies: EKG reviewed, report of the hip and pelvis x-ray reviewed, echocardiogram reviewed Assessment and Plan Plan: Assessment: #1. Elevated d-dimer, rule out possibility of a DVT or pulmonary embolism. Patient denies any pulmonary symptoms, she is on room air, patient has impaired renal function, we will proceed with Dopplers of the lower extremities. #2. Pain in the right hip, status post a fall at home, x-ray of the right hip and pelvis did not show evidence of fracture #3. A. fib with RVR, new onset, currently back in sinus rhythm #4. Recent discharge from [facility] #5. Recent hospitalization from 10/03/2020 through 10/06/2020 for difficulty ambulating, lumbar compression fractures, patient was discharged to the [facility] with TLSO brace and physical therapy was supposed to follow-up with orthopedic surgery on an outpatient basis #6. Acute kidney injury #7. Elevated troponins #8. Chronic back pain #9. Difficulty ambulating #10. Hypothyroidism #11. Hypertension #12. Hyperlipidemia #13. GERD/reflux #14. History of breast CVA with history of lumpectomy #15. History of bladder CVA #16. History of skin cancer, basal cell carcinoma with surgical removal #17. Anxiety #18. Nonsmoker Plan: We will obtain lower extremity Dopplers Patient is not having any pulmonary symptoms Renal function is impaired VQ scan is pending Currently on heparin infusion for elevated troponins and A. fib Echocardiogram has been noted We will continue to follow I performed a history & physical examination of the patient and discussed their management with my nurse practitioner, Arlene Huggins. I reviewed the nurse practitioner's note and agree with the documented findings and plan of care. Lung sounds are positive for diminished breath sounds. The findings and the impression was discussed with the patient. I attest to the documentation by the nurse practitioner. Time with Patient: Greater than 30
--- NOTE | 2020-10-26 12:46 | P.CRDCN ---
History of Present Illness Consult date: 10/26/20 History of present illness: HISTORY OF PRESENT ILLNESS: This is a 85-year-old female with a past medical history significant for hypertension, hyperlipidemia, spinal stenosis, compression fractures, and breast cancer. 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 We have been asked to see the patient in consultation for A. fib with RVR. Patient examined at the bedside. Patient does not remember the reason she was brought to the hospital. Apparently the patient fell and was transferred to the hospital via EMS. The patient denies any chest pain or pressure. She denies shortness of breath. Patient was found to be in A. fib with RVR upon presentation to the hospital. Patient was started on IV heparin and IV Cardizem. She has since converted to sinus mechanism with heart rate in the 60s. EKG reveals A. fib with RVR with ST depression in anterolateral leads Chest xray negative for acute process Laboratory data: WBC 10.0. Hemoglobin 13.9. Platelet count 319. D-dimer 2.08. Sodium 141. Potassium 3.6. BUN 34. Creatinine 1.68. Lactic acid 1.7. Troponin 0.087. 0.088. 0.092. Current home cardiac medications include metoprolol succinate 50 mg daily, lisinopril-hctz 20-25mg daily, Lipitor 20 mg daily REVIEW OF SYSTEMS: At the time of my exam: CONSTITUTIONAL: Denies fever or chills. HEENT: Denies blurred vision, vision changes, or eye pain. Denies hemoptysis CARDIOVASCULAR: Denies chest pain. Denies orthopnea. Denies PND. Denies palpitations RESPIRATORY: Denies shortness of breath. GASTROINTESTINAL: Denies abdominal pain. Denies nausea or vomiting. HEMATOLOGIC: Denies bleeding disorders. GENITOURINARY: Denies any blood in urine. SKIN: Denies pruitis. Denies rash. PHYSICAL EXAM: VITAL SIGNS: Reviewed. GENERAL: Well-developed in no acute distress. HEENT: Head is normocephalic. Pupils are equal, round. Sclerae anicteric. Mucous membranes of the mouth are moist. Neck supple. No JVD or thyromegaly LUNGS: Respirations even and unlabored. Lungs essentially clear to auscultation bilaterally. HEART: Regular rate and rhythm. S1 and S2 heard. ABDOMEN: Soft. Nondistended. Nontender. EXTREMITIES: Normal range of motion. No clubbing or cyanosis. Peripheral pulses intact. No lower extremity edema NEUROLOGIC: Awake and alert. Oriented x 2. ASSESSMENT: Hip pain, s/p fall New-onset paroxysmal atrial fibrillation with RVR Hypertension Hyperlipidemia Acute kidney injury Abnormal troponins, not suggestive of acute coronary syndrome, likely secondary to SARAI Elevated d-dimer Anxiety History of breast cancer History of hypothyroidism History of spinal stenosis History of compression fractures with recent hospitalization 09/2020 PLAN: Obtain 2D echo to assess cardiac structure and function Continue home cardiac medications Lisinopril-HCTZ on hold secondary to SARAI Check TSH Obtain VQ scan secondary to elevated d-dimer Will continue IV heparin until VQ scan is completed. If no evidence of PE, will switch patient to Eliquis 2.5mg BID Further recommendations pending patient course Nurse practitioner note has been reviewed by physician. Signing provider agrees with the documented findings, assessment, and plan of care. Past Medical History Past Medical History: Cancer, GERD/Reflux, Hyperlipidemia, Hypertension, Thyroid Disorder Additional Past Medical History / Comment(s): HX BREAST CA, BLADDER CA, LEFT LEG BASAL CELL, CELIAC DX, restless leg syndrome, previous breast wound with treatment in wound care center by Dr Grigsby History of Any Multi-Drug Resistant Organisms: None Reported Past Surgical History: Adenoidectomy, Bladder Surgery, Breast Surgery, To nsillectomy Additional Past Surgical History / Comment(s): COLONOSCOPIES, BENIGN LUMP REMOVED FROM BACK, LEFT BREAST LUMPECTOMY, 2 Surgeries FOR BLADDER CA, LEFT LEG BASAL CELL CA REMOVED, blepharoplasty Past Anesthesia/Blood Transfusion Reactions: Postoperative Nausea & Vomiting (PONV) Past Psychological History: Anxiety, Panic Disorder Smoking Status: Never smoker Past Alcohol Use History: None Reported Past Drug Use History: None Reported - Past Family History Father Family Medical History: Cancer Brother(s) Family Medical History: Cancer Sister(s) Family Medical History: Cancer Additional Family Medical History / Comment(s): BREAST Medications and Allergies Home Medications Medication Instructions Recorded Confirmed Type Lansoprazole 30 mg PO DAILY 01/11/15 10/25/20 History Levothyroxine Sodium [Synthroid] 25 mcg PO DAILY 01/11/15 10/25/20 History Atorvastatin [Lipitor] 20 mg PO HS 08/18/17 10/25/20 History Lisinopril-Hctz 20-25 mg 1 tab PO DAILY 08/31/18 10/25/20 History [Zestoretic 20-25] Metoprolol Succinate (ER) [Toprol 50 mg PO DAILY 08/31/18 10/25/20 History XL] rOPINIRole HCL [Requip] 1 mg PO HS 04/30/19 10/25/20 History Multivitamins, Thera [Multivitamin 1 tab PO DAILY 10/03/20 10/25/20 History (formulary)] Acetaminophen Tab [Tylenol] 650 mg PO Q6HR PRN tab 10/05/20 10/25/20 Rx Cyclobenzaprine [Flexeril] 5 mg PO BID PRN tab 10/05/20 10/25/20 Rx Gabapentin [Neurontin] 300 mg PO TID #12 cap 10/05/20 10/25/20 Rx traMADol HCl [Ultram] 50 mg PO Q6H PRN #10 tab 10/05/20 10/25/20 Rx Aspirin EC [Ecotrin] 975 mg PO ONCE PRN 10/25/20 10/25/20 History Apixaban [Eliquis] 2.5 mg PO BID #60 tab 10/26/20 Rx Allergies Allergy/AdvReac Type Severity Reaction Status Date / Time bee pollen Allergy Rash/Hives Verified 10/25/20 16:30 gluten Allergy Nausea & Verified 10/25/20 16:30 Vomiting & Diarrhea Penicillins Allergy Rash/Hives Verified 10/25/20 16:30 Sulfa (Sulfonamide Allergy Rash/Hives Verified 10/25/20 16:30 Antibiotics) Physical Exam Vitals: Vital Signs Temp Pulse Pulse Resp BP BP Pulse Ox 10/26/20 08:00 97.7 F 58 L 18 109/68 96 10/26/20 04:00 97.8 F 61 16 103/55 96 10/25/20 23:59 76 17 136/75 96 10/25/20 20:00 97.8 F 62 16 123/74 97 10/25/20 19:02 73 16 120/72 97 10/25/20 18:28 97.8 F 90 18 126/74 97 10/25/20 15:30 120 H 18 104/62 96 10/25/20 14:25 97.7 F 165 H 18 133/57 98 Intake and Output 10/25/20 10/26/20 10/26/20 22:59 06:59 14:59 Intake Total 333 68.107 Balance 68.107 Intake: Intake, IV Titration 333 68.107 Amount Diltiazem 125 mg In 25.333 Sodium Chloride 0.9% 100 ml @ 5 MG/HR 5 mls/hr IV .Q24H [facility] Rx#:[id number] Heparin Sod,Pork in 0.45% 68.107 NaCl 25,000 unit In 0.45 % NaCl 1 250ml.bag @ 18 UNITS/KG/HR 10.614 mls/hr IV .[id number] [facility] Rx#: [id number] Other: Voiding Method Toilet Toilet # Voids 1 1 Weight 58.967 kg 51.5 kg Results 10/25/20 15:19 10/25/20 15:19 Cardiac Enzymes 10/25/20 10/25/20 10/25/20 Range/Units 15:19 15:19 19:37 AST 37 H (14-36) U/L Troponin I 0.087 H* 0.088 H* (0.000-0.034) ng/mL 10/25/20 Range/Units 22:29 AST (14-36) U/L Troponin I 0.092 H* (0.000-0.034) ng/mL Coagulation 10/25/20 10/25/20 10/26/20 Range/Units 15:19 22:29 09:54 PT 10.2 (9.0-12.0) sec APTT 19.2 L 81.8 H 96.1 H (22.0-30.0) sec CBC 10/25/20 Range/Units 15:19 WBC 10.0 (3.8-10.6) k/uL RBC 4.46 (3.80-5.40) m/uL Hgb 13.9 (11.4-16.0) gm/dL Hct 41.9 (34.0-46.0) % Plt Count 319 (150-450) k/uL Comprehensive Metabolic Panel 10/25/20 Range/Units 15:19 Sodium 141 (137-145) mmol/L Potassium 3.6 (3.5-5.1) mmol/L Chloride 104 (98-107) mmol/L Carbon Dioxide 25 (22-30) mmol/L BUN 34 H (7-17) mg/dL Creatinine 1.68 H (0.52-1.04) mg/dL Glucose 130 H (74-99) mg/dL Calcium 9.4 (8.4-10.2) mg/dL AST 37 H (14-36) U/L ALT 25 (4-34) U/L Alkaline Phosphatase 210 H (38-126) U/L Total Protein 7.2 (6.3-8.2) g/dL Albumin 4.1 (3.5-5.0) g/dL Current Medications Generic Name Dose Route Start Last Admin Trade Name Freq PRN Reason Stop Dose Admin Acetaminophen 650 mg 10/25/20 20:30 10/26/20 09:43 Acetaminophen Tab 325 Mg Tab PO 650 mg Q6HR PRN Administration Mild Pain or Fever > 100.5 Aspirin 81 mg 10/27/20 09:00 Aspirin 81 Mg PO DAILY JOS[facility] Atorvastatin Calcium 20 mg 10/25/20 21:00 10/25/20 20:54 Atorvastatin 20 Mg Tab PO 20 mg HS JOSH Administration Cyclobenzaprine HCl 5 mg 10/25/20 20:30 Cyclobenzaprine 5 Mg Tab PO BID PRN Muscle Spasm Gabapentin 300 mg 10/25/20 22:00 10/26/20 09:42 Gabapentin 300 Mg Cap PO 300 mg TID JOSH Administration Heparin Sodium/Sodium Chloride 250 mls @ 10.614 mls/hr 10/25/20 17:15 10/25/20 23:53 25,000 unit/ Sodium Chloride IV 16 units/kg/hr .[id number] JOS[facility] 9.435 mls/hr Titration Protocol 18 UNITS/KG/HR Levothyroxine Sodium 25 mcg 10/26/20 06:30 10/26/20 06:36 Levothyroxine 25 Mcg Tab PO 25 mcg DAILY@0630 JOSH Administration Metoprolol Succinate 50 mg 10/25/20 20:45 10/26/20 09:43 Metoprolol Succinate (Er) 50 Mg Tab.Er.24h PO 50 mg DAILY JOSH Administration Multivitamins 1 each 10/26/20 09:00 10/26/20 09:43 Multivitamins, Thera 1 Each Tab PO 1 each DAILY JOS[facility] Administration Nitroglycerin 0.4 mg 10/25/20 17:05 Nitroglycerin Sl Tabs 0.4 Mg Tab SUBLINGUAL Q5M PRN Chest Pain Pantoprazole Sodium 40 mg 10/26/20 07:30 10/26/20 06:36 Pantoprazole 40 Mg Tablet PO 40 mg [id number] JOSH Administration Ropinirole HCl 1 mg 10/25/20 21:00 10/25/20 20:54 Ropinirole Hcl 1 Mg Tab PO 1 mg HS JOSH Administration Tramadol HCl 50 mg 10/25/20 20:30 Tramadol 50 Mg Tab PO Q6H PRN Moderate Pain Intake and Output 10/25/20 10/26/20 10/26/20 22:59 06:59 14:59 Intake Total 25.333 68.107 Balance 25.333 68.107 Intake: Intake, IV Titration 25.333 68.107 Amount Diltiazem 125 mg In 25.333 Sodium Chloride 0.9% 100 ml @ 5 MG/HR 5 mls/hr IV .Q24H [facility] Rx#:[id number] Heparin Sod,Pork in 0.45% 68.107 NaCl 25,000 unit In 0.45 % NaCl 1 250ml.bag @ 18 UNITS/KG/HR 10.614 mls/hr IV .[id number] [facility] Rx#: [id number] Other: Voiding Method Toilet Toilet # Voids 1 1 Weight 58.967 kg 51.5 kg 10/25/20 15:19 10/25/20 15:19
--- NOTE | 2020-10-26 14:37 | NM ---
EXAMINATION TYPE: NM pul vent and perfuse DATE OF EXAM: 10/26/2020 COMPARISON: Chest x-ray 10/25/2020 HISTORY: Elevated d-dimer TECHNIQUE: Utilizing inhalation of 36.1 mCi Tc 99m DTPA aerosol and intravenous injection of 4.8 mCi of Tc 99m MAA, ventilation and perfusion images are acquired post injection in multiple projections. FINDINGS: Normal radiotracer distribution is noted within the lungs on perfusion. There is central deposition w ith diminished aeration on ventilation. Moderate to large mismatched defects are not identified. No t riple matched defects are evident. IMPRESSION: Low probability for pulmonary embolism
--- NOTE | 2020-10-26 17:00 | US ---
EXAMINATION TYPE: US venous doppler duplex LE DATE OF EXAM: 10/26/2020 12:13 PM COMPARISON: NONE CLINICAL HISTORY: rule out DVT. Bilateral leg swelling. SIDE PERFORMED: Bilateral TECHNIQUE: The lower extremity deep venous system is examined utilizing real time linear array sonog zac with graded compression, doppler sonography and color-flow sonography. VESSELS IMAGED: Common Femoral Vein Deep Femoral Vein Greater Saphenous Vein * Femoral Vein Popliteal Vein Small Saphenous Vein * Proximal Calf Veins (* superficial vessels) Right Leg: Negative for DVT Left Leg: Negative for DVT Grayscale, color doppler, spectral doppler imaging performed of the deep veins of the bilateral lower extremities. There is normal flow, compressibility, vascular waveforms. IMPRESSION: No ultrasound evidence for acute DVT in either lower extremity.
[2020-10-26] MEDS: APIXABAN 2.5 MG TABLET PO SCH (20:05)
[2020-10-26] MEDS: ATORVASTATIN 20 MG TAB PO SCH (20:05)
--- NOTE | 2020-10-26 23:55 | P.HPIM ---
History of Present Illness H&P Date: 10/26/20 Chief Complaint: Right hip pain. Patient is a 85-year-old female with sentinel medical history of hypertension, hyperlipidemia, hypothyroidism, GERD, history of breast cancer, bladder cancer, left leg basal cell cancer, celiac disease, restless leg syndrome, anxiety, panic disorder and also cognitive impairment was brought to ER after having fallen yesterday and complaining of right hip pain. When EMS brought her to the ER patient was found to be in atrial fibrillation with heart rate 150s. Denies any dizziness or lightheadedness. No palpitations. No head injury. No neck pain. No focal weakness. No bladder and bowel incontinence. Denies any chest pain or shortness of breath. No nausea vomiting abdominal pain or diarrhea. Patient was previously at the rehab and was recently discharged home. Chest x-ray showed no acute pulmonary process. EKG showed atrial fibrillation with rapid ventricular response. Laboratory WBC 10.0 hemoglobin 13.9 platelets 319 D-dimer 2.08 BUN 34 and creatinine 1.68 Alk phos 210 Troponin 0 0.087, 0.088 and 0.092 Urinalysis negative for infection COVID-19 not detected TSH level is 1.080 Review of Systems Constitutional: Patient denies any fever or chills . No generalized weakness or weight loss. Abdomen: Patient denied nausea vomiting and diarrhea and abdominal pain. Cardiovascular: Patient denies any chest pain or short of breath no palpitations. Respiratory: patient denied any cough or sputum production. No shortness of breath Neurologic: Patient denied any numbness or tingling headache. Musculoskeletal: Patient denies any complaints of joint swelling or deformity. Right hip pain. Skin: Negative Psychiatric: Negative Endocrine: No heat or cold intolerance. No recent weight gain. Genitourinary: No dysuria or hematuria. All other 14 point ROS negative except the above Past Medical History Past Medical History: Cancer, GERD/Reflux, Hyperlipidemia, Hypertension, Thyroid Disorder Additional Past Medical History / Comment(s): HX BREAST CA, BLADDER CA, LEFT LEG BASAL CELL, CELIAC DX, restless leg syndrome, previous breast wound with treatment in wound care center by Dr Grigsby History of Any Multi-Drug Resistant Organisms: None Reported Past Surgical History: Adenoidectomy, Bladder Surgery, Breast Surgery, Tonsillectomy Additional Past Surgical History / Comment(s): COLONOSCOPIES, BENIGN LUMP REMOVED FROM BACK, LEFT BREAST LUMPECTOMY, 2 Surgeries FOR BLADDER CA, LEFT LEG BASAL CELL CA REMOVED, blepharoplasty Past Anesthesia/Blood Transfusion Reactions: Postoperative Nausea & Vomiting (PO NV) Past Psychological History: Anxiety, Panic Disorder Smoking Status: Never smoker Past Alcohol Use History: None Reported Past Drug Use History: None Reported - Past Family History Father Family Medical History: Cancer Brother(s) Family Medical History: Cancer Sister(s) Family Medical History: Cancer Additional Family Medical History / Comment(s): BREAST Medications and Allergies Home Medications Medication Instructions Recorded Confirmed Type Lansoprazole 30 mg PO DAILY 01/11/15 10/25/20 History Levothyroxine Sodium [Synthroid] 25 mcg PO DAILY 01/11/15 10/25/20 History Atorvastatin [Lipitor] 20 mg PO HS 08/18/17 10/25/20 History Lisinopril-Hctz 20-25 mg 1 tab PO DAILY 08/31/18 10/25/20 History [Zestoretic 20-25] Metoprolol Succinate (ER) [Toprol 50 mg PO DAILY 08/31/18 10/25/20 History XL] rOPINIRole HCL [Requip] 1 mg PO HS 04/30/19 10/25/20 History Multivitamins, Thera [Multivitamin 1 tab PO DAILY 10/03/20 10/25/20 History (formulary)] Acetaminophen Tab [Tylenol] 650 mg PO Q6HR PRN tab 10/05/20 10/25/20 Rx Cyclobenzaprine [Flexeril] 5 mg PO BID PRN tab 10/05/20 10/25/20 Rx Gabapentin [Neurontin] 300 mg PO TID #12 cap 10/05/20 10/25/20 Rx traMADol HCl [Ultram] 50 mg PO Q6H PRN #10 tab 10/05/20 10/25/20 Rx Aspirin EC [Ecotrin] 975 mg PO ONCE PRN 10/25/20 10/25/20 History Apixaban [Eliquis] 2.5 mg PO BID #60 tab 10/26/20 Rx Allergies Allergy/AdvReac Type Severity Reaction Status Date / Time bee pollen Allergy Rash/Hives Verified 10/25/20 16:30 gluten Allergy Nausea & Verified 10/25/20 16:30 Vomiting & Diarrhea Penicillins Allergy Rash/Hives Verified 10/25/20 16:30 Sulfa (Sulfonamide Allergy Rash/Hives Verified 10/25/20 16:30 Antibiotics) Physical Exam Vitals: Vital Signs Temp Pulse Pulse Resp BP BP Pulse Ox 10/26/20 04:00 97.8 F 61 16 103/55 96 10/25/20 23:59 76 17 136/75 96 10/25/20 20:00 97.8 F 62 16 123/74 97 10/25/20 19:02 73 16 120/72 97 10/25/20 18:28 97.8 F 90 18 126/74 97 10/25/20 15:30 120 H 18 104/62 96 10/25/20 14:25 97.7 F 165 H 18 133/57 98 Intake and Output 10/25/20 10/26/20 10/26/20 22:59 06:59 14:59 Intake Total 25.333 68.107 Balance 25.333 68.107 Intake: Intake, IV Titration 25.333 68.107 Amount Diltiazem 125 mg In 25.333 Sodium Chloride 0.9% 100 ml @ 5 MG/HR 5 mls/hr IV .Q24H [facility] Rx#:[id number] Heparin Sod,Pork in 0.45% 68.107 NaCl 25,000 unit In 0.45 % NaCl 1 250ml.bag @ 18 UNITS/KG/HR 10.614 mls/hr IV .[id number] [facility] Rx#: [id number] Other: Voiding Method Toilet # Voids 1 Weight 58.967 kg 51.5 kg PHYSICAL EXAMINATION: Patient is lying in the bed comfortably, no acute distress, awake alert and oriented.. HEENT: Normocephalic. Neck is supple. Pupils reactive. Nostrils clear. Oral cavity is moist. Ears reveal no drainage. Neck reveals no JVD, carotid bruits, or thyromegaly. CHEST EXAMINATION: Trachea is central. Symmetrical expansion. Lung matthews clear to auscultation and percussion. CARDIAC: Normal S1, S2 with no gallops. No murmurs ABDOMEN: Soft. Bowel sounds normal. No organomegaly. No abdominal bruits. Extremities: reveal no edema. No clubbing or cyanosis Neurologically awake, alert, oriented x2-3 with well-coordinated movements. No focal deficits noted.Cognitive impairment. Skin: No rash or skin lesions. Psychiatric: Coperative. Nonsuicidal Musculoskeletal: No joint swelling or deformity. Normal range of motion. Results CBC & Chem 7: 10/25/20 15:19 10/25/20 15:19 Labs: Abnormal Lab Results - Last 24 Hours (Table) 10/25/20 10/25/20 10/25/20 Range/Units 15:19 15:19 15:19 APTT 19.2 L (22.0-30.0) sec D-Dimer 2.08 H (<0.60) mg/L FEU BUN 34 H (7-17) mg/dL Creatinine 1.68 H (0.52-1.04) mg/dL Glucose 130 H (74-99) mg/dL AST 37 H (14-36) U/L Alkaline Phosphatase 210 H (38-126) U/L Troponin I (0.000-0.034) ng/mL Urine Appearance Cloudy H (Clear) Urine Protein Trace H (Negative) Urine Ketones 1+ H (Negative) Hyaline Casts 8 H (0-2) /lpf Urine Mucus Rare H (None) /hpf 10/25/20 10/25/20 10/25/20 Range/Units 15:19 19:37 22:29 APTT (22.0-30.0) sec D-Dimer (<0.60) mg/L FEU BUN (7-17) mg/dL Creatinine (0.52-1.04) mg/dL Glucose (74-99) mg/dL AST (14-36) U/L Alkaline Phosphatase (38-126) U/L Troponin I 0.087 H* 0.088 H* 0.092 H* (0.000-0.034) ng/mL Urine Appearance (Clear) Urine Protein (Negative) Urine Ketones (Negative) Hyaline Casts (0-2) /lpf Urine Mucus (None) /hpf 10/25/20 10/26/20 Range/Units 22:29 09:54 APTT 81.8 H 96.1 H (22.0-30.0) sec D-Dimer (<0.60) mg/L FEU BUN (7-17) mg/dL Creatinine (0.52-1.04) mg/dL Glucose (74-99) mg/dL AST (14-36) U/L Alkaline Phosphatase (38-126) U/L Troponin I (0.000-0.034) ng/mL Urine Appearance (Clear) Urine Protein (Negative) Urine Ketones (Negative) Hyaline Casts (0-2) /lpf Urine Mucus (None) /hpf Thrombosis Risk Factor Assmnt - DVT/VTE Prophylaxis DVT/VTE Prophylaxis: Pharmacologic Prophylaxis ordered - Choose All That Apply Each Risk Factor Represents 3 Points: Age 75 years or older Thrombosis Risk Factor Assessment Total Risk Factor Score: 3 Thrombosis Risk Factor Assessment Level: Moderate Risk Assessment and Plan Assessment: Atrial fibrillation with rapid ventricular rate. New onset. Right hip pain status post fall at home. X-ray did not show any evidence of fracture. Pain controlled with Tylenol. Elevated D-dimer level likely due to acute kidney injury and A. fib rule out pulmonary embolism. Acute kidney injury most likely prerenal with possible underlying CKD stage III. Recent hospitalization with lumbar compression fractures. Status post rehab and was recently discharged home. Hypertension Hyperlipidemia Hypothyroidism Cognitive impairment likely underlying dementia. GERD History of breast cancer and bladder cancer Anxiety and panic disorder DVT prophylaxis. Currently heparin. Plan: Patient was started on Cardizem drip and heparin drip due to new onset atrial fibrillation with rapid ventricular rate. Patient's fall could also be due to arrhythmia. Patient was started on metoprolol XL 50 mg daily and anticoagulation in the form of Eliquis. Lower extremity duplex and VQ scan was ordered to rule out pulmonary embolism due to elevated D-dimer level. Follow-up 2D echocardiogram. Continue with telemetry and further recommendations based on clinical course. PT OT will be c onsulted and possible discharge back to rehab versus extended care facility. Prognosis is guarded at this time. Time with Patient: Greater than 30
[2020-10-27] MEDS: GABAPENTIN 300 MG CAP PO SCH ×4 (00:07→20:19)
[2020-10-27 00:10] LABS: Chol/HDL Ratio 3.18; LDL Cholesterol,Calculated 112.2 mg/dL (0.0-131.0); VLDL Calculation 18.8 mg/dL (5.00-40.00)
[2020-10-27] MEDS: LEVOTHYROXINE 25 MCG TAB PO SCH (06:08)
[2020-10-27] MEDS: PANTOPRAZOLE 40 MG TABLET PO SCH (06:08)
[2020-10-27 08:51] LABS: Calcium 8.8 mg/dL (8.4-10.2)
--- NOTE | 2020-10-27 09:03 | P.PN ---
Subjective Progress Note Date: 10/27/20 Principal diagnosis: Left hip pain, shortness of breath, elevated d-dimer 85-year-old white female patient who had sustained a fall at home started having right hip pain. EMS brought the patient is to the emergency department for evaluation. In the emergency department patient was found to be in A. fib with RVR with a rate of 164 BPM. Denies previous history of atrial fibr illation. Medical history is significant for hypertension, hyperlipidemia, hypothyroidism, previous history of breast CA, bladder CA, basal cell skin cancer, and anxiety. Patient's nurse reported patient recently getting discharged home from [facility], and patient reports that she was having difficulty getting around at home. She was hospitalized in September from 10/03/2020 through 10/06/2020 when she was having difficulty ambulating and was found to have lumbar compression fractures. Patient was evaluated by orthopedic surgery, a back brace was applied, and patient was to follow-up with them on an outpatient basis and she was discharged to [facility] for physical therapy. She also received some epidural injections from pain services. In the emergency department chest x-ray showed no acute pulmonary process. Lab work showed elevated d-dimer of 2.08, and evidence of acute kidney injury with BUN of 34 and creatinine of 1.68. Addition patient had elevated troponins of 0.087, 0.088, 0.092. Urinalysis was negative for any evidence of infection, patient was checked for COVID 19 which was a negative test. Patient had a x-ray of the right hip and anteroposterior film of the pelvis and was found to have normal right hip and pelvis. Clinically patient denies any pulmonary symptoms, no shortness of breath, no chest pain, no cough, no hemoptysis, no syncopal episode. She is on heparin infusion for anticoagulation for A. fib with RVR and were asked to see the patient in consultation to rule out possibility of underlying pulmonary embolism. The patient is seen today 10/27/2020 in follow-up on the selective care unit. She is currently resting comfortably in bed. Awake and alert in no acute distress. Confused to place and time. She is maintaining good O2 saturations in the upper 90s on room air. She's been afebrile. Heart rate better controlled. VQ scan revealed low probability for PE. Dopplers of lower extremity negative bilaterally. She has been transitioned to Eliquis. Sodium 135. Potassium 4.0. Creatinine 1.16. Objective - Vital Signs Vital signs: Vital Signs Temp 97.9 F 10/27/20 04:00 Pulse 60 10/27/20 04:00 Resp 17 10/27/20 04:00 BP 102/51 10/27/20 04:00 Pulse Ox 96 10/27/20 04:00 Intake & Output 10/26/20 10/27/20 10/27/20 18:59 06:59 18:59 Intake Total 149.23 Balance 149.23 Weight 79.7 kg Intake: Intake, IV Titration 149.23 Amount Heparin Sod,Pork in 0.45% 149.23 NaCl 25,000 unit In 0.45 % NaCl 1 250ml.bag @ 18 UNITS/KG/HR 10.614 mls/hr IV .[id number] [facility] Rx#: [id number] Other: Voiding Method Toilet # Voids 1 1 - Exam GENERAL EXAM: Alert, very pleasant, 85-year-old female patient, who appears to be chronically ill and chronically debilitated, on room air, breathing comfortably, no apparent distress. HEAD: Normocephalic/atraumatic. EYES: Normal reaction of pupils, equal size. Conjunctiva pink, sclera white. NOSE: Clear with pink turbinates. THROAT: No erythema or exudates. NECK: No masses, no JVD, no thyroid enlargement, no adenopathy. CHEST: No chest wall deformity. Symmetrical expansion. LUNGS: Equal air entry with no crackles, wheeze, rhonchi or dullness. CVS: Regular rate and rhythm, normal S1 and S2, no gallops, no murmurs, no rubs ABDOMEN: Soft, nontender. No hepatosplenomegaly, normal bowel sounds, no guarding or rigidity. EXTREMITIES: No clubbing, no edema, no cyanosis, 2+ pulses and upper and lower extremities. MUSCULOSKELETAL: Muscle strength and tone normal. SPINE: No scoliosis or deformity SKIN: No rashes CENTRAL NERVOUS SYSTEM: No focal deficits, tone is normal in all 4 extremities. PSYCHIATRIC: Alert and oriented -1. Appropriate affect. - Labs CBC & Chem 7: 10/25/20 15:19 10/27/20 08:13 Labs: Abnormal Lab Results - Last 24 Hours (Table) 10/26/20 10/27/20 Range/Units 09:54 08:13 APTT 96.1 H (22.0-30.0) sec Sodium 135 L (137-145) mmol/L BUN 31 H (7-17) mg/dL Creatinine 1.16 H (0.52-1.04) mg/dL Assessment and Plan Assessment: 1 Elevated d-dimer, rule out possibility of a DVT or pulmonary embolism. Patient denies any pulmonary symptoms, she is on room air. VQ scan revealed low probability for pulmonary medicine. Dopplers were negative for DVT bilaterally. 2 Pain in the right hip, status post a fall at home, x-ray of the right hip and pelvis did not show evidence of fracture 3 A. fib with RVR, new onset, currently back in sinus rhythm. Transitioned to Eliquis. 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 Gill VQ scan negative for PE, Dopplers negative for DVT Cleared for discharge from the pulmonary standpoint We will see her on as-needed basis I, the cosigning physician, performed a history & physical examination of the patient. Lungs sounds are clear. Maintaining good O2 saturations in the 90s on room air. I discussed the assessment and plan of care with my nurse practitioner, Ludy Diego. I attest to the above note as dictated by her.
[2020-10-27] MEDS: APIXABAN 2.5 MG TABLET PO SCH (09:18)
[2020-10-27] MEDS: ASPIRIN 81 MG PO SCH (09:18)
[2020-10-27] MEDS: MULTIVITAMINS, THERA 1 EACH TAB PO SCH (09:18)
[2020-10-27] MEDS: METOPROLOL SUCCINATE (ER) 50 MG TAB.ER.24H PO SCH (09:18)
--- NOTE | 2020-10-27 12:17 | P.PN ---
Subjective Progress Note Date: 10/27/20 HISTORY OF PRESENT ILLNESS: This is a 85-year-old female with a past medical history significant for hypertension, hyperlipidemia, spinal stenosis, compression fractures, and breast cancer. Patient does not follow with a tree scout. We have been asked to see the patient in consultation for A. fib with RVR. Patient examined at the bedside. Patient does not remember the reason she was brought to the hospital. Apparently the patient fell and was transferred to the hospital via EMS. The patient denies any chest pain or pressure. She denies shortness of breath. Patient was found to be in A. fib with RVR upon presentation to the hospital. Patient was started on IV heparin and IV Cardizem. She has since converted to sinus mechanism with heart rate in the 60s. EKG reveals A. fib with RVR with ST depression in anterolateral leads Chest xray negative for acute process Laboratory data: WBC 10.0. Hemoglobin 13.9. Platelet count 319. D-dimer 2.08. Sodium 141. Potassium 3.6. BUN 34. Creatinine 1.68. Lactic acid 1.7. Troponin 0.087. 0.088. 0.092. Current home cardiac medications include metoprolol succinate 50 mg daily, lisinopril-hctz 20-25mg daily, Lipitor 20 mg daily 10/27/2020 Patient examined this morning the bedside. Patient complains of right hip pain. Patient denies chest pain or pressure. She denies shortness of breath. T elemetry reveals sinus mechanism. Patient is anticoagulated with Eliquis. Patient underwent VQ scan yesterday revealing low probability of PE. Echocardiogram completed revealed ejection fraction 60-65%. TSH 1.080. PHYSICAL EXAM: VITAL SIGNS: Reviewed. GENERAL: Well-developed in no acute distress. HEENT: Head is normocephalic. Pupils are equal, round. Sclerae anicteric. Mucous membranes of the mouth are moist. Neck supple. No JVD or thyromegaly LUNGS: Respirations even and unlabored. Lungs essentially clear to auscultation bilaterally. HEART: Regular rate and rhythm. S1 and S2 heard. EXTREMITIES: Normal range of motion. No clubbing or cyanosis. Peripheral pulses intact. No lower extremity edema ASSESSMENT: Hip pain, s/p fall New-onset paroxysmal atrial fibrillation with RVR Hypertension Hyperlipidemia Acute kidney injury Abnormal troponins, not suggestive of acute coronary syndrome, likely secondary to SARAI Elevated d-dimer Anxiety History of breast cancer History of hypothyroidism History of spinal stenosis History of compression fractures with recent hospitalization 09/2020 PLAN: Resume lisinopril as acute kidney injury has resolved Increase Eliquis to 5 mg twice a day as kidney function has normalized Continue additional cardiac medications Patient is stable for discharge from a cardiac standpoint We will sign off. Please reconsult if needed. Nurse practitioner note has been reviewed by physician. Signing provider agrees with the documented findings, assessment, and plan of care. Objective - Vital Signs Vital signs: Vital Signs Temp 97.9 F 10/27/20 04:00 Pulse 65 10/27/20 08:00 Resp 16 10/27/20 08:00 BP 102/65 10/27/20 08:00 Pulse Ox 95 10/27/20 08:00 Intake & Output 10/26/20 10/27/20 10/27/20 18:59 06:59 18:59 Intake Total 149.23 240 Balance 149.23 240 Weight 79.7 kg Intake: Intake, IV Titration 149.23 Amount Heparin Sod,Pork in 0.45% 149.23 NaCl 25,000 unit In 0.45 % NaCl 1 250ml.bag @ 18 UNITS/KG/HR 10.614 mls/hr IV .[id number] [facility] Rx#: [id number] Oral 240 Other: Voiding Method Toilet Toilet # Voids 1 1 - Labs CBC & Chem 7: 10/25/20 15:19 10/27/20 08:13 Labs: Abnormal Lab Results - Last 24 Hours (Table) 10/27/20 Range/Units 08:13 Sodium 135 L (137-145) mmol/L BUN 31 H (7-17) mg/dL Creatinine 1.16 H (0.52-1.04) mg/dL
[2020-10-27] MEDS: APIXABAN 5 MG TAB PO SCH (20:19)
[2020-10-27] MEDS: ATORVASTATIN 20 MG TAB PO SCH (20:19)
--- NOTE | 2020-10-28 00:55 | P.PN ---
Subjective Progress Note Date: 10/27/20 Principal diagnosis: New onset atrial fibrillation with RVR. Converted to sinus rhythm. Right hip pain. Improved. Patient is a 85-year-old female with sentinel medical history of hypertension, hyperlipidemia, hypothyroidism, GERD, history of breast cancer, bladder cancer, left leg basal cell cancer, celiac disease, restless leg syndrome, anxiety, panic disorder and also cognitive impairment was brought to ER after having fallen yesterday and complaining of right hip pain. When EMS brought her to the ER patient was found to be in atrial fibrillation with heart rate 150s. Denies any dizziness or lightheadedness. No palpitations. No head injury. No neck pain. No focal weakness. No bladder and bowel incontinence. Denies any chest pain or shortness of breath. No nausea vomiting abdominal pain or diarrhea. Patient was previously at the rehab and was recently discharged home. Chest x-ray showed no acute pulmonary process. EKG showed atrial fibrillation with rapid ventricular response. Laboratory WBC 10.0 hemoglobin 13.9 platelets 319 D-dimer 2.08 BUN 34 and creatinine 1.68 Alk phos 210 Troponin 0 0.087, 0.088 and 0.092 Urinalysis negative for infection COVID-19 not detected TSH level is 1.080 10/27/2020 patient is currently lying in the bed awake alert and oriented x2 today. Patient does mild cognitive impairment. Apparently patient has been living by herself and is unable to take care of very well. Discussed with her sister and social work will be consulted. Patient wants to be discharged home otherwise. No complaints of chest pain or shortness breath. Maintaining sinus rhythm. Heart rate is controlled and patient was started on anticoagulation with Eliquis for new onset atrial fibrillation. VQ scan showed low probability for PE and lower extremity duplex scan is negative for DVT. 2D echocardiogram showed ejection fraction 66 5% and TSH level within normal limits. Cardiology and pulmonary cleared the patient. Current medications reviewed.. Objective - Vital Signs Vital signs: Vital Signs Temp 97.9 F 10/27/20 04:00 Pulse 52 L 10/27/20 12:00 Resp 16 10/27/20 12:00 BP 102/49 10/27/20 12:00 Pulse Ox 97 10/27/20 12:00 Intake & Output 10/26/20 10/27/20 10/27/20 18:59 06:59 18:59 Intake Total 149.23 360 Balance 149.23 360 Weight 79.7 kg Intake: Intake, IV Titration 149.23 Amount Heparin Sod,Pork in 0.45% 149.23 NaCl 25,000 unit In 0.45 % NaCl 1 250ml.bag @ 18 UNITS/KG/HR 10.614 mls/hr IV .[id number] [facility] Rx#: [id number] Oral 360 Other: Voiding Method Toilet Toilet # Voids 1 1 1 - Exam PHYSICAL EXAMINATION: Patient is lying in the bed comfortably, no acute distress, awake alert and oriented.. HEENT: Normocephalic. Neck is supple. Pupils reactive. Nostrils clear. Oral cavity is moist. Ears reveal no drainage. Neck reveals no JVD, carotid bruits, or thyromegaly. CHEST EXAMINATION: Trachea is central. Symmetrical expansion. Lung matthews clear to auscultation and percussion. CARDIAC: Normal S1, S2 with no gallops. No murmurs ABDOMEN: Soft. Bowel sounds normal. No organomegaly. No abdominal bruits. Extremities: reveal no edema. No clubbing or cyanosis Neurologically awake, alert, oriented x2-3 with well-coordinated movements. No focal deficits noted.Cognitive impairment. Skin: No rash or skin lesions. Psychiatric: Coperative. Nonsuicidal Musculoskeletal: No joint swelling or deformity. Normal range of motion. - Labs CBC & Chem 7: 10/25/20 15:19 10/27/20 08:13 Labs: Abnormal Lab Results - Last 24 Hours (Table) 10/27/20 Range/Units 08:13 Sodium 135 L (137-145) mmol/L BUN 31 H (7-17) mg/dL Creatinine 1.16 H (0.52-1.04) mg/dL Assessment and Plan Assessment: Atrial fibrillation with rapid ventricular rate. New onset.Rate controlled and patient currently back to sinus rhythm. Anticoagulated with Eliquis. Right hip pain status post fall at home. X-ray did not show any evidence of fracture. Pain controlled with Tylenol. Elevated D-dimer level likely due to acute kidney injury and A. fib rule out pulmonary embolism. Acute kidney injury most likely prerenal with possible underlying CKD stage III. Recent hospitalization with lumbar compression fractures. Status post rehab and was recently discharged home. Hypertension Hyperlipidemia Hypothyroidism Cognitive impairment likely underlying dementia. GERD History of breast cancer and bladder cancer Anxiety and panic disorder DVT prophylaxis. Currently heparin. Plan: Patient was started on Cardizem drip and heparin drip due to new onset atrial fibrillation with rapid ventricular rate. Patient's fall could also be due to arrhythmia. Patient was started on metoprolol XL 50 mg daily and an ticoagulation in the form of Eliquis. Lower extremity duplex and VQ scan was ordered to rule out pulmonary embolism due to elevated D-dimer level. 2D echocardiogram showed normal EF. Continue with telemetry and further recommendations based on clinical course. PT OT will be consulted and possible discharge to rehab versus extended care facility.Patient would like to be discharged home but unable to take care of herself as per her sister. Social work will be consulted. Time with Patient: Greater than 30
[2020-10-28] MEDS: ACETAMINOPHEN TAB 325 MG TAB PO PRN (00:56)
[2020-10-28] MEDS: PANTOPRAZOLE 40 MG TABLET PO SCH (06:38)
[2020-10-28] MEDS: LEVOTHYROXINE 25 MCG TAB PO SCH (06:38)
[2020-10-28] MEDS: GABAPENTIN 300 MG CAP PO SCH ×3 (08:39→20:52)
[2020-10-28] MEDS: APIXABAN 5 MG TAB PO SCH ×2 (08:39→20:50)
[2020-10-28] MEDS: ASPIRIN 81 MG PO SCH (08:39)
[2020-10-28] MEDS: MULTIVITAMINS, THERA 1 EACH TAB PO SCH (08:39)
[2020-10-28] MEDS: LISINOPRIL-HCTZ 20-25 MG 1 EACH TAB PO SCH (08:39)
[2020-10-28] MEDS: METOPROLOL SUCCINATE (ER) 50 MG TAB.ER.24H PO SCH (08:39)
--- NOTE | 2020-10-28 14:31 | P.PN ---
Subjective Progress Note Date: 10/28/20 Principal diagnosis: New onset atrial fibrillation with RVR. Right hip pain. Ms. Winchester is an 84-year-old female with a past medical history of hypertension, hyperlipidemia, hypothyroidism, GERD, history of breast cancer, bladder cancer, left leg basal cell cancer, celiac disease, restless leg syndrome, anxiety disorder, cognitive impairment was brought in to the ER after having a fall at home and complaining of right hip pain. Patient was found to be in atrial fibrillation with heart rates around 150 at the time of admission to the ER. Chest x-ray done showed no acute pulmonary process. Patient was started initially on heparin drip and Cardizem drip, she converted into sinus rhythm and currently on anticoagulation with Eliquis. Patient also had lower extremity Doppler that was negative for bilateral lower extremity DVT and a VQ scan showing low probability PE as her d-dimer was elevated. Patient had an echocardiogram showing ejection fraction of 60-65% with mild concentric left ventricular hypertrophy. On 10/28/2020- patient was seen and examined at bedside. She is comfortably lying in bed appears to be in no acute distress. Patient has mild cognitive impairment. She denies having any chest pain or difficulty in breathing. She denies having any fevers chills or rigors. No abdominal pain nausea vomiting or diarrhea. On reviewing the vitals T-max 97.9, heart rate 50s to 60s, respiratory rate 18, blood pressure 1 26 x 64, saturating at 97% on room air. On reviewing her labs sodium and the femoral rotation 4, chloride 104, bicarbonate 27, BUN 31, creatinine 1.16 from yesterday. Patient's medications have been reviewed she is on Tylenol, Eliquis, aspirin, Lipitor, Flexeril, Neurontin, lisinopril to chlorothiazide, levothyroxine, metoprolol, multivitamin, Protonix, Requip, tramadol Objective - Vital Signs Vital signs: Vital Signs Temp 97.5 F L 10/28/20 08:33 Pulse 64 10/28/20 08:33 Resp 18 10/28/20 08:33 BP 126/64 10/28/20 08:33 Pulse Ox 97 10/28/20 08:33 Intake & Output 10/27/20 10/28/20 10/28/20 18:59 06:59 18:59 Intake Total 840 Output Total 200 Balance 840 -200 Weight 80.6 kg Intake: Oral 840 Output: Urine 200 Other: Voiding Method Toilet Bedside Commode # Voids 1 1 - Exam PHYSICAL EXAMINATION: Patient is lying in the bed comfortably, no acute distress, awake alert and oriented.. HEENT: Normocephalic. Neck is supple. Pupils reactive. Nostrils clear. Oral cavity is moist. Neck reveals no JVD, carotid bruits, or thyromegaly. CHEST EXAMINATION: Trachea is central. Symmetrical expansion. Lung matthews clear to auscultation and percussion. CARDIAC: Normal S1, S2 with no gallops. No murmurs ABDOMEN: Soft, nondistended, nontender. Bowel sounds normal. Extremities: reveal no edema. No clubbing or cyanosis Neurologically awake, alert, oriented x2 with well-coordinated movements. No focal deficits noted.Cognitive impairment. Skin: No rash or skin lesions. Psychiatric: Coperative. Nonsuicidal Musculoskeletal: No joint swelling or deformity. Normal range of motion. - Labs CBC & Chem 7: 10/25/20 15:19 10/27/20 08:13 Assessment and Plan Assessment: ASSESSMENT Atrial fibrillation with rapid ventricular rate. New onset.Rate controlled and patient currently back to sinus rhythm. Anticoagulated with Eliquis. Right hip pain status post fall at home. X-ray did not show any evidence of fracture. Pain controlled with Tylenol. Elevated D-dimer level likely due to acute kidney injury and A. fib low probablity of pulmonary embolism on V/Q scan Acute kidney injury most likely prerenal with possible underlying CKD stage III. Recent hospitalization with lumbar compression fractures. Status post rehab and was recently discharged home. Hypertension Hyperlipidemia Hypothyroidism Cognitive impairment likely underlying dementia. GERD History of breast cancer and bladder cancer Anxiety and panic disorder DVT prophylaxis on Eliquis PLAN: Patient currently in sinus rhythm, irregular, heart rate between 50s to 60s. Patient's creatinine improving, restarted on lisinopril hydrochlorothiazide and also increased her dose of Eliquis to 5 mg twice a day. Patient has mild cognitive impairment. She has been living by herself unable to take care of herself. As per ongoing discussions with her sister, health and social care teacher on board and probable rehab placement versus extended care facility.
[2020-10-28] MEDS: ATORVASTATIN 20 MG TAB PO SCH (20:50)
[2020-10-29] MEDS: LEVOTHYROXINE 25 MCG TAB PO SCH (06:30)
[2020-10-29] MEDS: PANTOPRAZOLE 40 MG TABLET PO SCH (06:30)
[2020-10-29 08:59] LABS: Basophils # (A) 0.1 k/uL (0-0.2); Basophils % (A) 1 %; Eosinophils # (A) 0.5 k/uL (0-0.7); Eosinophils % (A) 7 %; HCT 38.1 % (34.0-46.0); HGB 12.9 gm/dL (11.4-16.0); Lymphocytes # (A) 1.5 k/uL (1.0-4.8); Lymphocytes % (A) 21 %; MCH 32.3 pg (25.0-35.0); MCHC 33.8 g/dL (31.0-37.0); MCV 95.7 fL (80.0-100.0); Mean Platelet Volume 6.9; Monocytes # (A) 0.3 k/uL (0-1.0); Monocytes % (A) 5 %; Neutrophils # (A) 4.7 k/uL (1.3-7.7); Neutrophils % (A) 66 %; Platelet Count 261 k/uL (150-450); RBC 3.98 m/uL (3.80-5.40); RDW 14.2 % (11.5-15.5); WBC 7.1 k/uL (3.8-10.6)
[2020-10-29 09:11] LABS: Calcium 9.3 mg/dL (8.4-10.2); Potassium 3.7 mmol/L (3.5-5.1)
[2020-10-29] MEDS: METOPROLOL SUCCINATE (ER) 50 MG TAB.ER.24H PO SCH (09:16)
[2020-10-29] MEDS: ASPIRIN 81 MG PO SCH (09:16)
[2020-10-29] MEDS: APIXABAN 5 MG TAB PO SCH ×2 (09:16→20:18)
[2020-10-29] MEDS: GABAPENTIN 300 MG CAP PO SCH ×3 (09:16→20:18)
[2020-10-29] MEDS: LISINOPRIL-HCTZ 20-25 MG 1 EACH TAB PO SCH (09:16)
[2020-10-29] MEDS: MULTIVITAMINS, THERA 1 EACH TAB PO SCH (09:16)
--- NOTE | 2020-10-29 13:40 | P.PN ---
Subjective Progress Note Date: 10/29/20 Principal diagnosis: New onset atrial fibrillation with RVR. Right hip pain. Ms. Winchester is an 84-year-old female with a past medical history of hypertension, hyperlipidemia, hypothyroidism, GERD, history of breast cancer, bladder cancer, left leg basal cell cancer, celiac disease, restless leg syndrome, anxiety disorder, cognitive impairment was brought in to the ER after having a fall at home and complaining of right hip pain. Patient was found to be in atrial fibrillation with heart rates around 150 at the time of admission to the ER. Chest x-ray done showed no acute pulmonary process. Patient was started initially on heparin drip and Cardizem drip, she converted into sinus rhythm and currently on anticoagulation with Eliquis. Patient also had lower extremity Doppler that was negative for bilateral lower extremity DVT and a VQ scan showing low probability PE as her d-dimer was elevated. Patient had an echocardiogram showing ejection fraction of 60-65% with mild concentric left ventricular hypertrophy. On 10/28/2020- patient was seen and examined at bedside. She is comfortably lying in bed appears to be in no acute distress. Patient has mild cognitive impairment. She denies having any chest pain or difficulty in breathing. She denies having any fevers chills or rigors. No abdominal pain nausea vomiting or diarrhea. On reviewing the vitals T-max 97.9, heart rate 50s to 60s, respiratory rate 18, blood pressure 1 26 x 64, saturating at 97% on room air. On reviewing her labs sodium and the femoral rotation 4, chloride 104, bicarbonate 27, BUN 31, creatinine 1.16 from yesterday. On 10/29/2020 - patient is seen and examined at the bedside. She is comfortably lying in bed and has no active complaints. No acute events reported by nursing staff overnight. Patient has mild cognitive impairment. She denies having any active complaints of chest pain or difficulty in breathing. On reviewing the vitals temperature of 97.8, heart rate 71, respiratory rate 16, blood pressure 137/77 saturating at 95% on room air. Last from this morning white count is 7.1, hemoglobin 12.9, platelets 261. Sodium 136, rotation 3.7, chloride 103, bicarbonate 30, BUN 21, creatinine 0.96. Patient's medications have been reviewed she is on Tylenol, Eliquis, aspirin, Lipitor, Flexeril, Neurontin, lisinopril to chlorothiazide, levothyroxine, metoprolol, multivitamin, Protonix, Requip, tramadol Objective - Vital Signs Vital signs: Vital Signs Temp 97.7 F 10/29/20 12:55 Pulse 60 10/29/20 12:55 Resp 16 10/29/20 12:55 BP 130/79 10/29/20 12:55 Pulse Ox 96 10/29/20 12:55 Intake & Output 10/28/20 10/29/20 10/29/20 18:59 06:59 18:59 Intake Total 240 Balance 240 Weight 80.3 kg Intake: Oral 240 Other: Voiding Method Toilet Toilet Toilet Bedside Commode # Voids 2 1 - Exam PHYSICAL EXAMINATION: Patient is lying in the bed comfortably, no acute distress, awake alert and oriented. HEENT: Normocephalic. Neck is supple. Pupils reactive. Nostrils clear. Oral cavity is moist. Neck reveals no JVD, carotid bruits, or thyromegaly. CHEST EXAMINATION: Trachea is central. Symmetrical expansion. Lung matthews clear to auscultation CARDIAC: Normal S1, S2 with no gallops. No murmurs ABDOMEN: Soft, nondistended, nontender. Bowel sounds normal. Extremities: reveal no edema. No clubbing or cyanosis Neurologically awake, alert, oriented x2 with well-coordinated movements. No focal deficits noted.Cognitive impairment. Skin: No rash or skin lesions. Psychiatric: Coperative. Nonsuicidal Musculoskeletal: No joint swelling or deformity. Normal range of motion. - Labs CBC & Chem 7: 10/29/20 08:34 10/29/20 08:34 Labs: Abnormal Lab Results - Last 24 Hours (Table) 10/29/20 Range/Units 08:34 Sodium 136 L (137-145) mmol/L BUN 21 H (7-17) mg/dL Glucose 195 H (74-99) mg/dL Assessment and Plan Assessment: ASSESSMENT Atrial fibrillation with rapid ventricular rate. New onset.Rate controlled and patient currently back to sinus rhythm. Anticoagulated with Eliquis. Right hip pain status post fall at home. X-ray did not show any evidence of fra cture. Pain controlled with Tylenol. Elevated D-dimer level likely due to acute kidney injury and A. fib low probablity of pulmonary embolism on V/Q scan Acute kidney injury most likely prerenal with possible underlying CKD stage III. Recent hospitalization with lumbar compression fractures. Status post rehab and was recently discharged home. Hypertension Hyperlipidemia Hypothyroidism Cognitive impairment likely underlying dementia. GERD History of breast cancer and bladder cancer Anxiety and panic disorder DVT prophylaxis on Eliquis PLAN: Patient currently in sinus rhythm, irregular, heart rate between 50s to 60s. Patient's creatinine improving, restarted on lisinopril hydrochlorothiazi de and also increased her dose of Eliquis to 5 mg twice a day. Creatinine trending down to her baseline, today at 0.96. Patient has mild cognitive impairment. She has been living by herself but now unable to take care of herself. As per ongoing discussions with her sister, psychiatric social worker supervisor on board and probable rehab placement versus extended care facility.
[2020-10-29] MEDS: ATORVASTATIN 20 MG TAB PO SCH (20:18)
[2020-10-30 00:10] VITALS: RESP 16
[2020-10-30] MEDS: LEVOTHYROXINE 25 MCG TAB PO SCH (05:42)
[2020-10-30] MEDS: GABAPENTIN 300 MG CAP PO SCH (07:52)
[2020-10-30] MEDS: ASPIRIN 81 MG PO SCH (07:52)
[2020-10-30] MEDS: LISINOPRIL-HCTZ 20-25 MG 1 EACH TAB PO SCH (07:52)
[2020-10-30] MEDS: MULTIVITAMINS, THERA 1 EACH TAB PO SCH (07:53)
[2020-10-30] MEDS: METOPROLOL SUCCINATE (ER) 50 MG TAB.ER.24H PO SCH (07:53)
[2020-10-30] MEDS: PANTOPRAZOLE 40 MG TABLET PO SCH (07:53)
[2020-10-30] MEDS: APIXABAN 5 MG TAB PO SCH (07:53)
[2020-10-30 07:55] VITALS: BP 123/70; TEMP 98
[2020-10-30 07:57] VITALS: PULSE 65
--- NOTE | 2020-10-30 14:03 | P.DS ---
Providers Date of admission: 10/25/20 17:05 Expected date of discharge: 10/30/20 Attending physician: Sunitha Asif Consults: 10/25/20 17:05 Consult Physician Urgent Consulting Provider: Ezio Gill Reason/Comments: Evaluate for pulmonary embolism Do you want consulting provider notified?: Yes Primary care physician: Alex Va Hospital Course: Final diagnosis Atrial fibrillation with rapid ventricular rate. New onset. Rate controlled and patient currently back to sinus rhythm. Anticoagulated with Eliquis. Right hip pain status post fall at home. X-ray did not show any evidence of fracture. Pain controlled with Tylenol. Elevated D-dimer level likely due to acute kidney injury and A. fib low probablity of pulmonary embolism on V/Q scan Acute kidney injury most likely prerenal with possible underlying CKD stage III. Recent hospitalization with lumbar compression fractures. Patient to follow-up with orthopedics outpatient. Hypertension Hyperlipidemia Hypothyroidism Cognitive impairment likely underlying dementia. GERD History of breast cancer and bladder cancer Anxiety and panic disorder DVT prophylaxis Discharge disposition Patient is being discharged in a stable condition with guarded prognosis to [facility]. Patient will follow-up with Dr. Fields in the outpatient setting upon discharge. Patient will also follow-up with orthopedics Dr. Alcantara in 1-2 weeks. Total time taken is greater than 35 minutes. Hospital course This is an 85-year-old female who was recently admitted with right hip pain status post fall and was being closely monitored. Patient was also found to be in atrial fibrillation with RVR and initially started on heparin and Cardizem drip which was discontinued and patient will continue with Eliquis 5 mg twice daily along with Toprol-XL 50 mg daily and will continue. Patient had some mild acute renal failure and diuretics were held and patient creatinine improved and is currently 0.96 and lisinopril/hydrochlorothiazide has been resumed. Patient was seen on previous admission by orthopedics recommending conservative management and not a candidate for surgery and close outpatient follow-up and patient is being instructed to follow-up with Dr. Alcantara in 1-2 weeks. Patient is currently maintained on Flexeril along with gabapentin and will continue. Currently no reports of chest pain, shortness of breath, or palpitations. Patient is afebrile. No reports of nausea or vomiting and patient is tolerating diet. Patient will be going to [facility] on the [place] today. On exam vital signs are stable. Cardio S1, S2 are muffled. Respiratory system shows diminished breath sounds at the bases with no wheezing or rhonchi noted. Abdomen is soft and nontender. Nervous system shows diffuse weakness. Please refer to medication reconciliation sheet for a list of medications. Patient Condition at Discharge: Stable Plan - Discharge Summary Discharge Rx Participant: No New Discharge Prescriptions: New Apixaban [Eliquis] 5 mg PO BID #60 tab Aspirin 81 mg PO DAILY chew Nitroglycerin Sl Tabs [Nitrostat] 0.4 mg SUBLINGUAL Q5M PRN tab PRN Reason: Chest Pain Continue Levothyroxine Sodium [Synthroid] 25 mcg PO DAILY Lansoprazole 30 mg PO DAILY Atorvastatin [Lipitor] 20 mg PO HS Metoprolol Succinate (ER) [Toprol XL] 50 mg PO DAILY Lisinopril-Hctz 20-25 mg [Zestoretic 20-25] 1 tab PO DAILY rOPINIRole HCL [Requip] 1 mg PO HS Multivitamins, Thera [Multivitamin (formulary)] 1 tab PO DAILY Cyclobenzaprine [Flexeril] 5 mg PO BID PRN tab PRN Reason: Muscle Spasm Acetaminophen Tab [Tylenol] 650 mg PO Q6HR PRN tab PRN Reason: Mild Pain Or Fever > 100.5 Gabapentin [Neurontin] 300 mg PO TID #12 cap traMADol HCl [Ultram] 50 mg PO Q6H PRN #10 tab PRN Reason: Moderate Pain Discontinued Aspirin EC [Ecotrin] 975 mg PO ONCE PRN PRN Reason: Fever Discharge Medication List Lansoprazole 30 mg PO DAILY 01/11/15 [History] Levothyroxine Sodium [Synthroid] 25 mcg PO DAILY 01/11/15 [History] Atorvastatin [Lipitor] 20 mg PO HS 08/18/17 [History] Lisinopril-Hctz 20-25 mg [Zestoretic 20-25] 1 tab PO DAILY 08/31/18 [History] Metoprolol Succinate (ER) [Toprol XL] 50 mg PO DAILY 08/31/18 [History] rOPINIRole HCL [Requip] 1 mg PO HS 04/30/19 [History] Multivitamins, Thera [Multivitamin (formulary)] 1 tab PO DAILY 10/03/20 [History] Acetaminophen Tab [Tylenol] 650 mg PO Q6HR PRN tab 10/05/20 [Rx] Cyclobenzaprine [Flexeril] 5 mg PO BID PRN tab 10/05/20 [Rx] Apixaban [Eliquis] 5 mg PO BID #60 tab 10/27/20 [Rx] Aspirin 81 mg PO DAILY chew 10/30/20 [Rx] Gabapentin [Neurontin] 300 mg PO TID #12 cap 10/30/20 [Rx] Nitroglycerin Sl Tabs [Nitrostat] 0.4 mg SUBLINGUAL Q5M PRN tab 10/30/20 [Rx] traMADol HCl [Ultram] 50 mg PO Q6H PRN #10 tab 10/30/20 [Rx] Follow up Appointment(s)/Referral(s): Alex Alberto DO [Primary Care Provider] - 1-2 days (office closed at this time patient to arrange appointment ) Shankar Alcantara DO [Doctor of Osteopathic Medicine] - 2 Weeks Activity/Diet/Wound Care/Special Instructions: Patient is going to [id number] Activity as tolerated Continue with gluten-free diet Continue with PT/OT therapy Continue with medications as prescribed Patient needs outpatient follow-up with orthopedics in the next 1-2 weeks Continue to use a walker while out of bed and walking Discharge Disposition: TRANSFER TO SNF/ECF
== END 2020-10-30 15:15 | DRG 309 ==
LOC: EC 14:15 → 3SCARD 17:05 → 4SSUR 10-29 22:58
PROVIDERS: ADMIT Hospitalist; ATTEND Hospitalist
DX: I48.0 Paroxysmal atrial fibrillation (principal); N17.9 Acute kidney failure, unspecified; I12.9 Hypertensive chronic kidney disease with stage 1 through stage 4 chronic kidney disease, or unspecified chronic kidney disease; N18.30 Chronic kidney disease, stage 3 unspecified; G25.81 Restless legs syndrome; E78.5 Hyperlipidemia, unspecified; M25.551 Pain in right hip; Z20.822 Contact with and (suspected) exposure to COVID-19; R79.89 Other specified abnormal findings of blood chemistry; M48.00 Spinal stenosis, site unspecified; E03.9 Hypothyroidism, unspecified; F03.90 Unspecified dementia, unspecified severity, without behavioral disturbance, psychotic disturbance, mood disturbance, and anxiety; F41.0 Panic disorder [episodic paroxysmal anxiety]; G89.29 Other chronic pain; M54.9 Dorsalgia, unspecified; K21.9 Gastro-esophageal reflux disease without esophagitis; W19.XXXA Unspecified fall, initial encounter; K90.0 Celiac disease; Y92.009 Unspecified place in unspecified non-institutional (private) residence as the place of occurrence of the external cause; Z79.01 Long term (current) use of anticoagulants; Z79.890 Hormone replacement therapy; Z79.899 Other long term (current) drug therapy; Z85.3 Personal history of malignant neoplasm of breast; Z85.51 Personal history of malignant neoplasm of bladder; Z85.828 Personal history of other malignant neoplasm of skin; Z86.73 Personal history of transient ischemic attack (TIA), and cerebral infarction without residual deficits; Z91.030 Bee allergy status; Z88.0 Allergy status to penicillin; Z88.2 Allergy status to sulfonamides; Z91.011 Allergy to milk products; Z87.81 Personal history of (healed) traumatic fracture
CPT/HCPCS: 36415; 71046; 73502; 78582; 80048; 80053; 80061; 81001; 83605; 83735; 84100; 84443; 84484; 85025; 85379; 85610; 85730; 87635; 93005; 93306; 93970; 96365; 96366; 96374; 96375; 99285

== ENCOUNTER 2020-11-26 | Emergency (ER) | payer MEDICARE | END 2020-11-26 20:34 | disposition home or self-care (01) ==

== ENCOUNTER → 2022-11-11 | Outpatient (CLI) | payer MEDICARE ==
[~2022-11-11] MED LIST changes: +DENOSUMAB 60 MG/ML 1 ML SYRINGE SQ ONE; -HEPARIN SODIUM,PORCINE 5,000 UNIT/ML 1 ML VIAL SQ ONE; -LACTATED RINGERS 1,000 ML IV SCH; -MORPHINE SULFATE 4 MG/ML SYRINGE IV PRN; -Pre Op ABX Message 1 EACH MISC MISCELLANE ONE
[2022-11-11 14:04] VITALS: BP 116/77; PULSE 58; RESP 16; TEMP 98.1
== END ==
LOC: PROCWHC3 13:24
PROVIDERS: ATTEND Family Medicine
DX: M81.0 Age-related osteoporosis without current pathological fracture (principal)
CPT/HCPCS: 96372; J0897

== ENCOUNTER → 2024-11-08 | Outpatient (CLI) | payer MEDICARE ==
[2024-11-08 12:57] VITALS: BP 137/72; PULSE 75; RESP 15; TEMP 98.3
[2024-11-08] MEDS: DENOSUMAB 60 MG/ML 1 ML SYRINGE SQ NR (12:57)
== END ==
LOC: PROCWHC3 12:40
PROVIDERS: ATTEND Family Medicine
DX: M81.0 Age-related osteoporosis without current pathological fracture (principal)
CPT/HCPCS: 96372; J0897